=== PATIENT | male | born 1945 | race Caucasian/White ===

== ENCOUNTER 2021-08-26 16:46 | Inpatient (IN) ==
[2021-08-26 17:07] LABS: BASOPHILS # (AUTO) 0.1 X10^3/uL (0.0-0.1); LYMPHOCYTES # (AUTO) 0.5 X10^3/uL (1.3-2.9); RED CELL DISTRIBUTION WIDTH 14.9 % (11.6-16.5)
[2021-08-26 17:10] LABS: BASOPHILS % (AUTO) 0.3 % (0.2-1.0); MEAN CORPUSCULAR HEMOGLOBIN 30.8 pg (27.0-34.0); MEAN CORPUSCULAR HGB CONC 33.3 g/dL (33.0-35.0); MEAN CORPUSCULAR VOLUME 92.4 fL (80.0-100.0); MEAN PLATELET VOLUME 9.1 fL (7.4-11.0); MONOCYTES # (AUTO) 0.8 x10^3/uL (0.3-0.8); MONOCYTES % (AUTO) 4.4 % (0.0-13.0); NEUTROPHILS # (AUTO) 16.7 x10^3/uL (2.2-4.8); NEUTROPHILS % (AUTO) 92.3 % (42.0-75.0); RED BLOOD COUNT 3.25 X10^6/uL (4.7-6.0); WHITE BLOOD COUNT 18.1 X10^3/uL (3.6-10.0)
[2021-08-26] MEDS ORDERED: NS 1,000 ML IV 1,000 ML ONE ×3 (17:18→20:13)
[2021-08-26] MEDS ORDERED: NS 1,000 ML IV 1,000 ML IV ONE ×2 (17:20→18:55)
--- NOTE | 2021-08-26 17:36 | RAD ---
HISTORYWEAKNESS, CP, SOB Relevant Clinical InformationSTUDYCHEST, 1 [id number]/20/2021.FINDINGSThe airways are normal. The heart size is normal. There is increased opacity in the left base and there is a small to moderate left pleural effusion. There is new opacity in the right upper lobe. The right base is clear.IMPRESSIONLeft base and right upper lobe opacities worrisome for pneumonia. Persistent small to moderate left pleural effusion.Electronically signed by: Jonathan Soriano (Aug 26, 2021 17:35:10)
--- NOTE | 2021-08-26 17:36 | DR.CP ---
HPI Time Seen Time Seen by Provider: 08/26/21 17:00 PCP Primary Care Physician: ENZO Carpenter Chief Complaint:: PATIENT COMPLAINS OF MID CHEST PAIN AND WEAKNESS. PAIENT STATES HE HAS FELT THIS WAY FOR A WEEK, SPOUSE STATES HE HAS BEEN WEAK AND NOT E ATING FOR TWO DAYS. PATIENT IS NOTED TO BE PALE, AWAKE AND ALERT BUT WEAK AND UNABLE TO STAND TO GET INTO STRETCHER. PATIENT HAS HX OF OPEN HEART SURGERY OVER 5 YR AGO. Self Treatment fo Chief Complaint: ASPIRIN ON THE WAY ER AND STATES HE WOULD NOT TAKE A NITRO COVID-19 Coronavirus risk:travel/contact w/high risk person: No Has patient experienced Coronavirus symptoms: No Source History Provided: Patient and Significant Other Mode of Arrival Mode of Arrival: Ambulatory Timing Onset of Chief Complaint: 08/24/21 PMH PMH Past Medical History: Yes Past Medical History: Coronary Artery Disease and Hypertension Past Surgical History: Yes Surgical History: Appendectomy and CABG/Valve Surgery Family History History of Family Medical Conditions: Yes Family Medical History: Cancer Social History Do you use any recreational Drugs:: No Lives With: Spouse Lives Where: Home Travel Risk Coronavirus risk:travel/contact w/high risk person: No Has patient experienced Coronavirus symptoms: No Infectious screening In the last 2 months have you had wt loss of >10#?: NO Have you had fever, night sweats or hemotysis?: No Have you traveled outside the country in the last 6 months?: No Isolation: Standard PE Vitals Vitals: Temperature 97 F Pulse Rate 65 Respiratory Rate 28 Blood Pressure [Right Arm] 167/73 Blood Pressure 127/61 O2 Sat by Pulse Oximetry 92 ROR Labs Reviewed Result Diagrams: 08/26/21 16:55 08/26/21 16:55 Laboratory: WBC 18.1 X10^3/uL (3.6-10.0) H 08/26/21 16:55 RBC 3.25 X10^6/uL (4.7-6.0) L 08/26/21 16:55 Hgb 10.0 g/dL (13.5-18.0) L 08/26/21 16:55 Hct 30.0 % (42.0-54.0) L 08/26/21 16:55 MCV 92.4 fL (80.0-100.0) 08/26/21 16:55 MCH 30.8 pg (27.0-34.0) 08/26/21 16:55 MCHC 33.3 g/dL (33.0-35.0) 08/26/21 16:55 RDW 14.9 % (11.6-16.5) 08/26/21 16:55 Plt Count 239 X10^3/uL (150.0-450.0) 08/26/21 16:55 Plt Count Comment Adequate (ADEQUATE) 08/26/21 16:55 MPV 9.1 fL (7.4-11.0) 08/26/21 16:55 Neut % (Auto) 92.3 % (42.0-75.0) H 08/26/21 16:55 Lymph % (Auto) 3.0 % (21.0-51.0) L 08/26/21 16:55 [place] % (Auto) 4.4 % (0.0-13.0) 08/26/21 16:55 Eos % (Auto) 0.0 % (0.9-2.9) L 08/26/21 16:55 Baso % (Auto) 0.3 % (0.2-1.0) 08/26/21 16:55 Neut # (Auto) 16.7 x10^3/uL (2.2-4.8) H 08/26/21 16:55 Lymph # (Auto) 0.5 X10^3/uL (1.3-2.9) L 08/26/21 16:55 [place] # (Auto) 0.8 x10^3/uL (0.3-0.8) 08/26/21 16:55 Eos # (Auto) 0.0 x10^3/uL (0.0-0.2) 08/26/21 16:55 Baso # (Auto) 0.1 X10^3/uL (0.0-0.1) 08/26/21 16:55 Absolute Nucleated RBC 0.0 /100WBC 08/26/21 16:55 Total Counted 100 08/26/21 16:55 Neutrophils % (Manual) 95 % (39-76) H 08/26/21 16:55 Lymphocytes % (Manual) 4 % (13-43) L 08/26/21 16:55 Monocytes % (Manual) 1 % (4-9) L 08/26/21 16:55 Plt Morphology Comment Normal (NORMAL) 08/26/21 16:55 RBC Morphology Normal (NORMAL) 08/26/21 16:55 D-Dimer 3.81 ug/ml (0.0-0.57) H* 08/26/21 16:55 Sodium 131 mmol/L (136-145) L 08/26/21 16:55 Corrected Sodium 133 mmol/L (136-145) L 08/26/21 16:55 Potassium 4.8 mmol/L (3.5-5.1) 08/26/21 16:55 Chloride 93 mmol/L (98-107) L 08/26/21 16:55 Carbon Dioxide 21.8 mmol/L (21-32) 08/26/21 16:55 BUN 92 mg/dL (7-18) H 08/26/21 16:55 Creatinine 4.14 mg/dL (0.70-1.30) H 08/26/21 16:55 Est GFR (MDRD) Af Amer 18 (>60) L 08/26/21 16:55 Est GFR (MDRD) Non-Af 15 (>60) L 08/26/21 16:55 Glucose 200 mg/dL (65-99) H 08/26/21 16:55 Lactic Acid 1.0 mmol/L (0.4-2.0) 08/26/21 19:55 Calcium 8.8 mg/dL (8.5-10.1) 08/26/21 16:55 Corrected Calcium 9.8 mg/dL (8.5-10.1) 08/26/21 16:55 Total Bilirubin 1.00 mg/dL (0.2-1.0) 08/26/21 16:55 AST 15 Units/L (15-37) 08/26/21 16:55 ALT 17 Units/L (12-78) 08/26/21 16:55 Alkaline Phosphatase 107 Units/L (46-116) 08/26/21 16:55 Creatine Kinase 102 Units/L (39-308) 08/26/21 16:55 CK-MB (CK-2) 2.2 ng/mL (0-4.0) 08/26/21 16:55 CK/CKMB % Calc 2.2 % (<4) 08/26/21 16:55 Troponin I High Sens 59.5 ng/L (4.0-60.0) 08/26/21 16:55 Total Protein 7.2 g/dL (6.4-8.2) 08/26/21 16:55 Albumin 2.8 g/dL (3.4-5.0) L 08/26/21 16:55 Globulin 4.4 g/dL (2.5-4.5) 08/26/21 16:55 Albumin/Globulin Ratio 0.6 Ratio (1.1-2.1) L 08/26/21 16:55 SARS-CoV-2 (PCR) Negative (NEGATIVE) 08/26/21 17:20 Influenza Type A (PCR) Negative (NEGATIVE) 08/26/21 17:20 Influenza Type B (PCR) Negative (NEGATIVE) 08/26/21 17:20 RSV (PCR) Negative (NEGATIVE) 08/26/21 17:20 Opioid Opioid Risk Tool Age (Nestor box if 16-45): No History of Preadolescent Sexual Abuse: No Total: 0 Total Score Risk Category: Low Risk Copyright: César BURT predicting aberrant behaviors Discharge Plan Diagnosis Discharge Problem: Pneumonia, Acute renal failure, Acute dehydration, Chest pain Discharge Plan Patient Disposition: 01 HOME, SELF-CARE Condition: Stable Orders to Discharge Patient Discharge Orders: Transfer (Routine); Ordered 08/26/21 Ordered By: MACARENA SIMS
[2021-08-26 17:41] LABS: ALBUMIN 2.8 g/dL (3.4-5.0); CALCIUM 8.8 mg/dL (8.5-10.1); CARBON DIOXIDE 21.8 mmol/L (21-32); CKMB % 2.2 % (<4); COR CA(FOR HYPOALB) 9.8 mg/dL (8.5-10.1); CREATINE KINASE MB 2.2 ng/mL (0-4.0); CREATININE 4.14 mg/dL (0.70-1.30); TOTAL PROTEIN 7.2 g/dL (6.4-8.2)
[2021-08-26 17:45] LABS: PLATELET MORPHOLOGY COMMENT NORMAL (NORMAL)
[2021-08-26] MEDS ORDERED: ZOFRAN INJ 4 MG VIAL IVP ONE (17:53)
[2021-08-26] MEDS ORDERED: ZOFRAN INJ 4 MG VIAL ONE (17:57)
[2021-08-26] MEDS ORDERED: ROCEPHIN 1 GRAM IV PREMIX 1 G/50 ML IV.SOLN. IV ONE (19:40)
[2021-08-26] MEDS ORDERED: ROCEPHIN VIAL 1 GRAM ONE (19:45)
[2021-08-26] MEDS ORDERED: NS 100 ML IV 100 ML ONE ×2 (19:46→22:25)
[2021-08-26] MEDS ORDERED: SALINE 3% 15 ML NEB TX ONE (21:37)
[2021-08-26] MEDS ORDERED: PROVENTIL NEB TX 0.083% 2.5MG/ 3ML ONE (21:37)
[2021-08-26] MEDS: PROVENTIL NEB TX 0.083% 2.5MG/ 3ML NEB SCH (21:45)
[2021-08-26] MEDS ORDERED: SALINE 3% 15 ML NEB TX NEB ONE (21:45)
[2021-08-26] MEDS ORDERED: VIBRAMYCIN 100 MG in NS 100 ML IV + SPIKE MINIBAG* 100 ML IV SCH (22:00)
[2021-08-26] MEDS ORDERED: VIBRAMYCIN IV ONE (22:25)
[2021-08-26] MEDS: NICOTINE PATCH TD SCH (22:27)
[2021-08-26 23:20] LABS: CKMB % 3.3 % (<4); CREATINE KINASE MB 2.5 ng/mL (0-4.0)
[2021-08-27] MEDS: NS 1,000 ML IV 1,000 ML IV SCH ×4 (01:44→17:18)
[2021-08-27 02:15] LABS: BILIRUBIN,URINE NEGATIVE (NEGATIVE); BLOOD/HEMOGLOBIN,URINE NEGATIVE (NEGATIVE); GLUCOSE, URINE NEGATIVE (NEGATIVE); KETONES,URINE NEGATIVE (NEGATIVE); LEUKOCYTE ESTERASE ,URINE NEGATIVE (NEGATIVE); NITRITES,URINE NEGATIVE (NEGATIVE); PROTEIN,URINE NEGATIVE (NEGATIVE); UROBILINOGEN,URINE NORMAL (NORMAL)
[2021-08-27 02:25] LABS: APPEARANCE,URINE CLEAR (CLEAR); COLOR,URINE YELLOW (YELLOW)
[2021-08-27 05:33] LABS: BASOPHILS % (AUTO) 0 % (0.2-1.0); HEMATOCRIT 27.3 % (42.0-54.0); HEMOGLOBIN 9.3 g/dL (13.5-18.0); LYMPHOCYTES # (AUTO) 0.3 X10^3/uL (1.3-2.9); LYMPHOCYTES % (AUTO) 2.1 % (21.0-51.0); MEAN CORPUSCULAR HEMOGLOBIN 31.2 pg (27.0-34.0); MEAN CORPUSCULAR HGB CONC 34.1 g/dL (33.0-35.0); MEAN CORPUSCULAR VOLUME 91.3 fL (80.0-100.0); MEAN PLATELET VOLUME 9.8 fL (7.4-11.0); MONOCYTES # (AUTO) 0.7 x10^3/uL (0.3-0.8); MONOCYTES % (AUTO) 4.6 % (0.0-13.0); NEUTROPHILS # (AUTO) 14.8 x10^3/uL (2.2-4.8); NEUTROPHILS % (AUTO) 93.3 % (42.0-75.0); RED BLOOD COUNT 2.99 X10^6/uL (4.7-6.0); WHITE BLOOD COUNT 15.8 X10^3/uL (3.6-10.0)
[2021-08-27 05:57] LABS: ALBUMIN 2.1 g/dL (3.4-5.0); CALCIUM 7.7 mg/dL (8.5-10.1); CARBON DIOXIDE 19.8 mmol/L (21-32); CKMB % 4.7 % (<4); COR CA(FOR HYPOALB) 9.2 mg/dL (8.5-10.1); CREATINE KINASE MB 2.6 ng/mL (0-4.0); CREATININE 3.59 mg/dL (0.70-1.30); MAGNESIUM 1.6 mg/dL (1.7-2.9); TOTAL PROTEIN 5.7 g/dL (6.4-8.2)
[2021-08-27 06:08] LABS: BAND NEUTROPHILS % 6 % (0-10)
[2021-08-27 06:09] LABS: PLATELET MORPHOLOGY COMMENT NORMAL (NORMAL)
[2021-08-27] MEDS ORDERED: ROCEPHIN VIAL 1 GRAM ONE (07:53)
[2021-08-27] MEDS ORDERED: NS 50 ML IV 50 ML IV ONE (07:53)
[2021-08-27] MEDS ORDERED: VIBRAMYCIN IV ONE (07:53)
[2021-08-27] MEDS ORDERED: NS 250 ML IV 250 ML IV ONE (07:54)
--- NOTE | 2021-08-27 08:16 | DR.H&P ---
H&P History & Physical for Day of: H&P Date: 08/27/21 Chief Complaint Chief Complaint: Chest pain, shortness of breath Allergies Allergies Allergy/AdvReac Type Severity Reaction Status Date / Time No Known Drug Allergies Allergy Verified 09/13/19 13:55 History of Present Illness History of Present Illness: Pt is a 76 year old male past medical history of Hypertension, CABG, COPD, CKD presenting with chest pain, shortness of breath, and chills for the past week. Pt states that his symptoms were progressively worsening and that he became weak. Labs/imaging: Wbc 15.8, Hgb 9.3, Plt 231, Na 134, K 4.2, Creatinine 3.59, Glucose 153, Troponin negative x3. UA negative, COVID and influenza negative, blood cultures pending. CXR was obtained that revealed: Left base and right upper lobe opacities worrisome for pneumonia. Persistent small to moderate left pleural effusion. Pt was admitted for community acquired pneumonia. He was started on IVF NS@150ml/h, will decrease to KVO due to pleural effusion. Current antibiotics: Rocephin and Doxycycline. D- dimer was elevated, unable to get CTA chest due to renal function will order VQ scan. Restart home medications. Add bronchodilators. Continue to closely monitor and follow up labs/imaging. Past Medical History Past Medical History: Coronary Artery Disease and Hypertension Past Surgical History Surgical History: Appendectomy and CABG/Valve Surgery Family History Family Medical History: Cancer Social History Does patient currently use any type of tobacco product: Yes Have you used tobacco products in the last 12 months: Yes Type of Tobacco Use: Cigarettes How many years tobacco product used: 50 Does any household member use tobacco: No Alcohol Use: None Drug Use: None Medications Home Medications: No Known Drug Allergies Allergy (Verified 09/13/19 13:55) CONTINUE taking the following medications albuterol sulfate 2.5 mg/3 mL (0.083 %) solution for nebulization inhalation PRN PRN 08/26/21 [History] clonidine HCl 0.1 mg tablet 1 tab PO QDAY PRN blood pressure 08/26/21 [History] nifedipine 30 mg tablet,extended release 1 tab PO QDAY 08/26/21 [History] Labs Result Diagrams: 08/27/21 04:37 08/27/21 04:37 Labs: Laboratory WBC 15.8 X10^3/uL (3.6-10.0) H 08/27/21 04:37 RBC 2.99 X10^6/uL (4.7-6.0) L 08/27/21 04:37 Hgb 9.3 g/dL (13.5-18.0) L 08/27/21 04:37 Hct 27.3 % (42.0-54.0) L 08/27/21 04:37 MCV 91.3 fL (80.0-100.0) 08/27/21 04:37 MCH 31.2 pg (27.0-34.0) 08/27/21 04:37 MCHC 34.1 g/dL (33.0-35.0) 08/27/21 04:37 RDW 15.0 % (11.6-16.5) 08/27/21 04:37 Plt Count 231 X10^3/uL (150.0-450.0) 08/27/21 04:37 Plt Count Comment Adequate (ADEQUATE) 08/27/21 04:37 MPV 9.8 fL (7.4-11.0) 08/27/21 04:37 Neut % (Auto) 93.3 % (42.0-75.0) H 08/27/21 04:37 Lymph % (Auto) 2.1 % (21.0-51.0) L 08/27/21 04:37 [place] % (Auto) 4.6 % (0.0-13.0) 08/27/21 04:37 Eos % (Auto) 0.0 % (0.9-2.9) L 08/27/21 04:37 Baso % (Auto) 0 % (0.2-1.0) L 08/27/21 04:37 Neut # (Auto) 14.8 x10^3/uL (2.2-4.8) H 08/27/21 04:37 Lymph # (Auto) 0.3 X10^3/uL (1.3-2.9) L 08/27/21 04:37 [place] # (Auto) 0.7 x10^3/uL (0.3-0.8) 08/27/21 04:37 Eos # (Auto) 0.0 x10^3/uL (0.0-0.2) 08/27/21 04:37 Baso # (Auto) 0.0 X10^3/uL (0.0-0.1) 08/27/21 04:37 Absolute Nucleated RBC 0.0 /100WBC 08/27/21 04:37 Total Counted 100 08/27/21 04:37 Neutrophils % (Manual) 89 % (39-76) H 08/27/21 04:37 Band Neutrophils % 6 % (0-10) 08/27/21 04:37 Lymphocytes % (Manual) 2 % (13-43) L 08/27/21 04:37 Monocytes % (Manual) 3 % (4-9) L 08/27/21 04:37 Plt Morphology Comment Normal (NORMAL) 08/27/21 04:37 RBC Morphology Normal (NORMAL) 08/27/21 04:37 PT 14.8 SECONDS (11.8-14.3) 08/27/21 04:37 INR Target Range - 08/27/21 04:37 INR 1.20 (0.8-1.3) 08/27/21 04:37 APTT 32.7 SECONDS (22.9-36.5) 08/27/21 04:37 PTT Comment - 08/27/21 04:37 D-Dimer 3.81 ug/ml (0.0-0.57) H* 08/26/21 16:55 Sodium 134 mmol/L (136-145) L 08/27/21 04:37 Corrected Sodium 135 mmol/L (136-145) L 08/27/21 04:37 Potassium 4.2 mmol/L (3.5-5.1) 08/27/21 04:37 Chloride 101 mmol/L (98-107) 08/27/21 04:37 Carbon Dioxide 19.8 mmol/L (21-32) L 08/27/21 04:37 BUN 88 mg/dL (7-18) H 08/27/21 04:37 Creatinine 3.59 mg/dL (0.70-1.30) H 08/27/21 04:37 Est GFR (MDRD) Af Amer 21 (>60) L 08/27/21 04:37 Est GFR (MDRD) Non-Af 18 (>60) L 08/27/21 04:37 Glucose 153 mg/dL (65-99) H 08/27/21 04:37 Lactic Acid 1.0 mmol/L (0.4-2.0) 08/26/21 19:55 Calcium 7.7 mg/dL (8.5-10.1) L 08/27/21 04:37 Corrected Calcium 9.2 mg/dL (8.5-10.1) 08/27/21 04:37 Magnesium 1.6 mg/dL (1.7-2.9) L 08/27/21 04:37 Total Bilirubin 0.50 mg/dL (0.2-1.0) 08/27/21 04:37 AST 11 Units/L (15-37) L 08/27/21 04:37 ALT 13 Units/L (12-78) 08/27/21 04:37 Alkaline Phosphatase 86 Units/L (46-116) 08/27/21 04:37 Creatine Kinase 55 Units/L (39-308) 08/27/21 04:37 CK-MB (CK-2) 2.6 ng/mL (0-4.0) 08/27/21 04:37 CK/CKMB % Calc 4.7 % (<4) 08/27/21 04:37 Troponin I High Sens 49.1 ng/L (4.0-60.0) 08/27/21 04:37 Total Protein 5.7 g/dL (6.4-8.2) L 08/27/21 04:37 Albumin 2.1 g/dL (3.4-5.0) L 08/27/21 04:37 Globulin 3.6 g/dL (2.5-4.5) 08/27/21 04:37 Albumin/Globulin Ratio 0.6 Ratio (1.1-2.1) L 08/27/21 04:37 Specimen Type Clean catch urine 08/27/21 01:30 Urine Color Yellow (YELLOW) 08/27/21 01:30 Urine Appearance Clear (CLEAR) 08/27/21 01:30 Urine pH 5.0 (5.0 - 8.0) 08/27/21 01:30 Ur Specific [place] 1.015 (1.000-1.030) 08/27/21 01:30 Urine Protein Negative (NEGATIVE) 08/27/21 01:30 Urine Glucose (UA) Negative (NEGATIVE) 08/27/21 01:30 Urine Ketones Negative (NEGATIVE) 08/27/21 01:30 Urine Blood Negative (NEGATIVE) 08/27/21 01:30 Urine Nitrite Negative (NEGATIVE) 08/27/21 01:30 Urine Bilirubin Negative (NEGATIVE) 08/27/21 01:30 Urine Urobilinogen Normal (NORMAL) 08/27/21 01:30 Ur Leukocyte Esterase Negative (NEGATIVE) 08/27/21 01:30 SARS-CoV-2 (PCR) Negative (NEGATIVE) 08/26/21 17:20 Influenza Type A (PCR) Negative (NEGATIVE) 08/26/21 17:20 Influenza Type B (PCR) Negative (NEGATIVE) 08/26/21 17:20 RSV (PCR) Negative (NEGATIVE) 08/26/21 17:20 Review of Systems Constitutional: Chills and Weakness Eyes: No Symptoms Reported ENT: No Symptoms Reported Respiratory: Shortness of Breath Cardiovascular: Chest Pain Gastrointestinal: No Symptoms Reported Genitourinary: No Symptoms Reported Musculoskeletal: No Symptoms Reported Skin: No Symptoms Reported Neurological: No Symptoms Reported Physical Exam Vital Signs: Temperature 97.7 F Pulse Rate [Left Radial] 67 Pulse Rate 66 Respiratory Rate 33 Blood Pressure [Right Arm] 126/60 Blood Pressure 113/59 O2 Sat by Pulse Oximetry 100 Oriented: Normal Eyes: Normal Ear: Normal Nose: Normal Throat: Normal Respiratory: Diminished Throughout, RUL Rales and LLL Rales Cardiovascular: Normal : Normal Auscultation: Bowel Sounds: Normal Palpation: Normal Tenderness: Normal Skin: Normal Musculoskeletal: Normal Psychiatric: Normal Mood Description: Calm and Appropriate Affect: Normal Speech Pattern: Clear and Appropriate Assessment/Plan (1) Pneumonia: Narrative Support Text: IV antibiotics Status: Acute (2) Chest pain, rule out acute myocardial infarction: Status: Acute (3) CKD (chronic kidney disease) stage 4, GFR 15-29 ml/min: Status: Acute Review H&P Reviewed: Yes Patient was examined?: Yes
[2021-08-27] MEDS: NICOTINE PATCH TD SCH (08:24)
[2021-08-27] MEDS: VIBRAMYCIN 100 MG in NS 100 ML IV 100 ML IV SCH ×2 (08:25→20:42)
[2021-08-27] MEDS: ROCEPHIN VIAL 1 GRAM 1 G in NS 100 ML IV 100 ML IV SCH (08:25)
[2021-08-27] MEDS: COREG TAB 3.125 MG PO SCH ×2 (08:29→20:42)
[2021-08-27] MEDS: PROVENTIL NEB TX 0.083% 2.5MG/ 3ML NEB SCH ×4 (08:33→21:05)
[2021-08-27] MEDS ORDERED: ROCEPHIN 1 GRAM IV PREMIX 1 G/50 ML IV.SOLN. IV SCH (09:00)
[2021-08-27] MEDS ORDERED: ZOFRAN INJ 4 MG VIAL IVP PRN (09:25)
[2021-08-27] MEDS ORDERED: ZOFRAN INJ 4 MG VIAL ONE (09:27)
[2021-08-27] MEDS ORDERED: MORPHINE SULFATE INJ 2 MG INJ ONE (09:48)
[2021-08-27] MEDS: MORPHINE SULFATE INJ 2 MG INJ IVP PRN ×2 (09:51→20:42)
[2021-08-27 10:53] LABS: CKMB % 5.2 % (<4); CREATINE KINASE MB 3.7 ng/mL (0-4.0)
[2021-08-27] MEDS: LOVENOX INJ 30 MG SYR SC SCH (11:11)
[2021-08-28] MEDS: NS 1,000 ML IV 1,000 ML IV SCH ×4 (02:16→20:05)
[2021-08-28] MEDS ORDERED: CATAPRES TAB 0.1 MG PO PRN ×2 (04:08→04:43)
[2021-08-28 04:57] LABS: BASOPHILS % (AUTO) 0.3 % (0.2-1.0); HEMATOCRIT 28.1 % (42.0-54.0); HEMOGLOBIN 9.5 g/dL (13.5-18.0); LYMPHOCYTES # (AUTO) 0.5 X10^3/uL (1.3-2.9); LYMPHOCYTES % (AUTO) 3.4 % (21.0-51.0); MEAN CORPUSCULAR HGB CONC 33.7 g/dL (33.0-35.0); MEAN PLATELET VOLUME 9.6 fL (7.4-11.0); MONOCYTES % (AUTO) 6.5 % (0.0-13.0); NEUTROPHILS # (AUTO) 13.1 x10^3/uL (2.2-4.8); NEUTROPHILS % (AUTO) 89.8 % (42.0-75.0); RED BLOOD COUNT 3.06 X10^6/uL (4.7-6.0); RED CELL DISTRIBUTION WIDTH 15.2 % (11.6-16.5); WHITE BLOOD COUNT 14.5 X10^3/uL (3.6-10.0)
[2021-08-28 05:15] LABS: ALANINE AMINOTRANSFERASE 16 Units/L (12-78); ALKALINE PHOSPHATASE 102 Units/L (46-116); ASPARTATE AMINO TRANSFERASE 15 Units/L (15-37); BLOOD UREA NITROGEN 89 mg/dL (7-18); CARBON DIOXIDE 19.6 mmol/L (21-32); CHLORIDE 103 mmol/L (98-107); COR CA(FOR HYPOALB) 9.6 mg/dL (8.5-10.1); CREATININE 3.32 mg/dL (0.70-1.30); SODIUM 137 mmol/L (136-145); TOTAL PROTEIN 5.7 g/dL (6.4-8.2); eGFR NON BLACK RACES 19 (>60)
--- NOTE | 2021-08-28 06:43 | RAD ---
HISTORYFollow-up pneumoniaSTUDYChest AP [id number] ent is status post median sternotomy and CABG. Heart size is normal. Elizabeth are normal. Small right upper lobe infiltrate abuts the minor fissure and is unchanged and most consistent with pneumonia. The remainder of the right lung is clear as is the left upper lobe. Increasing density is present in the retrocardiac area of the left lower lobe partially due to increasing left pleural effusion. The effusion obscures the previously known underlying left lower lobe infiltrate. No pneumothorax is identified. Bony thorax is unremarkable.IMPRESSIONNo change right midlung pneumoniaIncreasing left pleural effusion obscuring the patient's known left lower lobe lung infiltrate.Electronically signed by: KHAI STEPHENSON (Aug 28, 2021 06:41:40)
--- NOTE | 2021-08-28 08:19 | NM ---
HISTORYChest pain, dyspnea, elevated D-dimerSTUDYNuclear medicine perfusion lung scanTechnique: Patient received intravenous injection of 5.7 millicuries technetium 99 MAA.COMPARISONChest x-ray same dateFINDINGSThere is an apparent perfusion defect involving the left lower lobe however it is likely due to the patient's elevated left hemidiaphragm and left pleural effusion. Otherwise, perfusion is symmetric and without subsegmental, segmental, or lobar defects. The probability of acute pulmonary thromboembolic disease is low.IMPRESSIONLow probability acute pulmonary thromboembolic diseaseElectronically signed by: KHAI STEPHENSON (Aug 28, 2021 08:17:32)
[2021-08-28] MEDS: COREG TAB 3.125 MG PO SCH (09:10)
[2021-08-28] MEDS: LASIX PO SCH (09:11)
[2021-08-28] MEDS: NICOTINE PATCH TD SCH (09:11)
[2021-08-28] MEDS: ROCEPHIN VIAL 1 GRAM 1 G in NS 100 ML IV 100 ML IV SCH (09:11)
[2021-08-28] MEDS: LOVENOX INJ 30 MG SYR SC SCH (09:11)
[2021-08-28] MEDS: VIBRAMYCIN 100 MG in NS 100 ML IV 100 ML IV SCH ×2 (09:12→20:35)
[2021-08-28] MEDS: PROVENTIL NEB TX 0.083% 2.5MG/ 3ML NEB SCH ×4 (09:20→21:13)
[2021-08-28] MEDS ORDERED: PROCARDIA (PLAIN) CAP 10 MG PO ONE (12:17)
[2021-08-28 18:29] VITALS: BMI 16.4
[2021-08-28] MEDS: COREG TAB 12.5 MG PO SCH (20:35)
[2021-08-29 05:26] LABS: BASOPHILS % (AUTO) 0.1 % (0.2-1.0); HEMATOCRIT 27.6 % (42.0-54.0); HEMOGLOBIN 9.3 g/dL (13.5-18.0); LYMPHOCYTES # (AUTO) 0.6 X10^3/uL (1.3-2.9); LYMPHOCYTES % (AUTO) 4.6 % (21.0-51.0); MEAN CORPUSCULAR HEMOGLOBIN 31.1 pg (27.0-34.0); MEAN CORPUSCULAR HGB CONC 33.7 g/dL (33.0-35.0); MEAN CORPUSCULAR VOLUME 92.1 fL (80.0-100.0); MEAN PLATELET VOLUME 9.3 fL (7.4-11.0); MONOCYTES # (AUTO) 0.8 x10^3/uL (0.3-0.8); MONOCYTES % (AUTO) 6.8 % (0.0-13.0); NEUTROPHILS # (AUTO) 11.1 x10^3/uL (2.2-4.8); NEUTROPHILS % (AUTO) 88.5 % (42.0-75.0); RED CELL DISTRIBUTION WIDTH 15.7 % (11.6-16.5); WHITE BLOOD COUNT 12.5 X10^3/uL (3.6-10.0)
[2021-08-29 05:35] LABS: ALANINE AMINOTRANSFERASE 27 Units/L (12-78); ALBUMIN 1.9 g/dL (3.4-5.0); ALKALINE PHOSPHATASE 135 Units/L (46-116); ASPARTATE AMINO TRANSFERASE 30 Units/L (15-37); BLOOD UREA NITROGEN 81 mg/dL (7-18); CALCIUM 8.2 mg/dL (8.5-10.1); CARBON DIOXIDE 22.4 mmol/L (21-32); CHLORIDE 103 mmol/L (98-107); COR CA(FOR HYPOALB) 9.9 mg/dL (8.5-10.1); CREATININE 2.84 mg/dL (0.70-1.30); SODIUM 137 mmol/L (136-145); TOTAL PROTEIN 5.8 g/dL (6.4-8.2); eGFR NON BLACK RACES 23 (>60)
[2021-08-29] MEDS: NS 1,000 ML IV 1,000 ML IV SCH ×3 (05:37→17:38)
--- NOTE | 2021-08-29 07:42 | PCM.PROG ---
Progress Note Progress Note for Day of Date of Exam: 08/28/21 Subjective Subjective: Pt is a 76 year old male past medical history of Hypertension, CABG, COPD, CKD admitted for pneumonia. This morning he reports feeling better than yesterday. No acute events overnight. Labs/imaging: Wbc 14.5, Hgb 9.5, Plt 241, Na 137, K 3.9, Creatinine 3.32, Glucose 110, Blood cultures pending. CXR was obtained that revealed: No change right midlung pneumonia. Increasing left pleural effusion obscuring the patient's known left lower lobe lung infiltrate. He did have VQ scan due to elevated D-dimer that resulted in low probability acute pulmonary thromboembolic disease. Pt is currently on IVF NS@KVO, Current antibiotics: Rocephin and Doxycycline, bronchodilators, home medications were resumed. Start on home lasix 40mg daily due to pleural effusion. Otherwise, continue with current treatment plan. Closely monitor and follow up labs/imaging. Past Medical Family Social History Allergies: Allergies No Known Drug Allergies Allergy (Verified 09/13/19 13:55) Review of Systems ROS: No change since H&P Vital Signs and I&O's Vital Signs: Temperature 98.7 F Pulse Rate [Left Radial] 67 Pulse Rate 61 Respiratory Rate 22 Blood Pressure [Right Arm] 126/60 Blood Pressure 167/71 O2 Sat by Pulse Oximetry 100 Intake and Output: Intake & Output 08/26/21 08/27/21 08/28/21 08/29/21 23:59 23:59 23:59 23:59 Intake Total 2230 / 2230 3120 / 3120 2018 / 2018 375 / 375 Output Total 0 / 0 1925 / 1925 1999 / 1999 450 / 450 Balance 2230 / 2230 1195 / 1195 19 / 19 -75 / -75 Physical Exam Oriented: Normal Eyes: Normal Ear: Normal Nose: Normal Throat: Normal Respiratory: Rales Cardiovascular: Normal : Normal Auscultation: Bowel Sounds: Normal Tenderness: Normal Skin: Normal Musculoskeletal: Normal Psychiatric: Normal Mood Description: Calm and Appropriate Affect: Normal Speech Pattern: Clear and Appropriate Laboratory and Diagnostics Result Diagrams: 08/29/21 04:46 08/29/21 04:46 Labs: 08/27/21 08:43 Sputum - Expectorated Sputum Sputum Culture - Preliminary 08/27/21 08:43 Sputum - Expectorated Sputum - Final 08/26/21 20:18 Blood Blood Culture - Preliminary 08/26/21 19:55 Blood Blood Culture - Preliminary Laboratory WBC 12.5 X10^3/uL (3.6-10.0) H 08/29/21 04:46 RBC 3.00 X10^6/uL (4.7-6.0) L 08/29/21 04:46 Hgb 9.3 g/dL (13.5-18.0) L 08/29/21 04:46 Hct 27.6 % (42.0-54.0) L 08/29/21 04:46 MCV 92.1 fL (80.0-100.0) 08/29/21 04:46 MCH 31.1 pg (27.0-34.0) 08/29/21 04:46 MCHC 33.7 g/dL (33.0-35.0) 08/29/21 04:46 RDW 15.7 % (11.6-16.5) 08/29/21 04:46 Plt Count 247 X10^3/uL (150.0-450.0) 08/29/21 04:46 Plt Count Comment Adequate (ADEQUATE) 08/27/21 04:37 MPV 9.3 fL (7.4-11.0) 08/29/21 04:46 Neut % (Auto) 88.5 % (42.0-75.0) H 08/29/21 04:46 Lymph % (Auto) 4.6 % (21.0-51.0) L 08/29/21 04:46 [place] % (Auto) 6.8 % (0.0-13.0) 08/29/21 04:46 Eos % (Auto) 0.0 % (0.9-2.9) L 08/29/21 04:46 Baso % (Auto) 0.1 % (0.2-1.0) L 08/29/21 04:46 Neut # (Auto) 11.1 x10^3/uL (2.2-4.8) H 08/29/21 04:46 Lymph # (Auto) 0.6 X10^3/uL (1.3-2.9) L 08/29/21 04:46 [place] # (Auto) 0.8 x10^3/uL (0.3-0.8) 08/29/21 04:46 Eos # (Auto) 0.0 x10^3/uL (0.0-0.2) 08/29/21 04:46 Baso # (Auto) 0.0 X10^3/uL (0.0-0.1) 08/29/21 04:46 Absolute Nucleated RBC 0.0 /100WBC 08/29/21 04:46 Total Counted 100 08/27/21 04:37 Neutrophils % (Manual) 89 % (39-76) H 08/27/21 04:37 Band Neutrophils % 6 % (0-10) 08/27/21 04:37 Lymphocytes % (Manual) 2 % (13-43) L 08/27/21 04:37 Monocytes % (Manual) 3 % (4-9) L 08/27/21 04:37 Plt Morphology Comment Normal (NORMAL) 08/27/21 04:37 RBC Morphology Normal (NORMAL) 08/27/21 04:37 PT 14.8 SECONDS (11.8-14.3) 08/27/21 04:37 INR Target Range - 08/27/21 04:37 INR 1.20 (0.8-1.3) 08/27/21 04:37 APTT 32.7 SECONDS (22.9-36.5) 08/27/21 04:37 PTT Comment - 08/27/21 04:37 D-Dimer 3.81 ug/ml (0.0-0.57) H* 08/26/21 16:55 Sodium 137 mmol/L (136-145) 08/29/21 04:46 Corrected Sodium TNP 08/29/21 04:46 Potassium 3.8 mmol/L (3.5-5.1) 08/29/21 04:46 Chloride 103 mmol/L (98-107) 08/29/21 04:46 Carbon Dioxide 22.4 mmol/L (21-32) 08/29/21 04:46 BUN 81 mg/dL (7-18) H 08/29/21 04:46 Creatinine 2.84 mg/dL (0.70-1.30) H 08/29/21 04:46 Est GFR (MDRD) Af Amer 28 (>60) L 08/29/21 04:46 Est GFR (MDRD) Non-Af 23 (>60) L 08/29/21 04:46 Glucose 99 mg/dL (65-99) 08/29/21 04:46 Lactic Acid 1.0 mmol/L (0.4-2.0) 08/26/21 19:55 Calcium 8.2 mg/dL (8.5-10.1) L 08/29/21 04:46 Corrected Calcium 9.9 mg/dL (8.5-10.1) 08/29/21 04:46 Magnesium 1.6 mg/dL (1.7-2.9) L 08/27/21 04:37 Total Bilirubin 0.40 mg/dL (0.2-1.0) 08/29/21 04:46 AST 30 Units/L (15-37) 08/29/21 04:46 ALT 27 Units/L (12-78) 08/29/21 04:46 Alkaline Phosphatase 135 Units/L (46-116) H 08/29/21 04:46 Creatine Kinase 71 Units/L (39-308) 08/27/21 10:12 CK-MB (CK-2) 3.7 ng/mL (0-4.0) 08/27/21 10:12 CK/CKMB % Calc 5.2 % (<4) 08/27/21 10:12 Troponin I High Sens 54.0 ng/L (4.0-60.0) 08/27/21 10:12 Total Protein 5.8 g/dL (6.4-8.2) L 08/29/21 04:46 Albumin 1.9 g/dL (3.4-5.0) L 08/29/21 04:46 Globulin 3.9 g/dL (2.5-4.5) 08/29/21 04:46 Albumin/Globulin Ratio 0.5 Ratio (1.1-2.1) L 08/29/21 04:46 Specimen Type Clean catch urine 08/27/21 01:30 Urine Color Yellow (YELLOW) 08/27/21 01:30 Urine Appearance Clear (CLEAR) 08/27/21 01:30 Urine pH 5.0 (5.0 - 8.0) 08/27/21 01:30 Ur Specific [place] 1.015 (1.000-1.030) 08/27/21 01:30 Urine Protein Negative (NEGATIVE) 08/27/21 01:30 Urine Glucose (UA) Negative (NEGATIVE) 08/27/21 01:30 Urine Ketones Negative (NEGATIVE) 08/27/21 01:30 Urine Blood Negative (NEGATIVE) 08/27/21 01:30 Urine Nitrite Negative (NEGATIVE) 08/27/21 01:30 Urine Bilirubin Negative (NEGATIVE) 08/27/21 01:30 Urine Urobilinogen Normal (NORMAL) 08/27/21 01:30 Ur Leukocyte Esterase Negative (NEGATIVE) 08/27/21 01:30 SARS-CoV-2 (PCR) Negative (NEGATIVE) 08/26/21 17:20 Influenza Type A (PCR) Negative (NEGATIVE) 08/26/21 17:20 Influenza Type B (PCR) Negative (NEGATIVE) 08/26/21 17:20 RSV (PCR) Negative (NEGATIVE) 08/26/21 17:20 Plan (1) Pneumonia: Status: Acute (2) Chest pain, rule out acute myocardial infarction: Status: Acute (3) CKD (chronic kidney disease) stage 4, GFR 15-29 ml/min: Status: Acute
--- NOTE | 2021-08-29 07:51 | PCM.PROG ---
Progress Note Progress Note for Day of Date of Exam: 08/29/21 Subjective Subjective: Pt is a 76 year old male past medical history of Hypertension, CABG, COPD, CKD admitted for pneumonia. This morning he is resting comfortably in bed. No acute events overnight. Labs/imaging: Wbc 12.5, Hgb 9.3, Plt 247, Na 137, K 3.8, Creatinine 2.84, Glucose 99, Blood cultures gram positive cocci x2. CXR was obtained that revealed: no significant change compared to prior. Pt is currently on IVF NS@KVO, Current antibiotics: Rocephin and Doxycycline, bronchodilators, home medications were resumed. Leukocytosis is trending down. Will repeat blood cultures while awaiting final species of initial cultures. Order echo to rule out endocarditis. Pt also is a smoker and reviewing CT chest in 2020 it noted chronic pleural effusion. Will repeat CT chest and consult general surgery-Dr Lowery for evaluation. Otherwise, continue with current treatment plan. Closely monitor and follow up labs/imaging. Past Medical Family Social History Allergies: Allergies No Known Drug Allergies Allergy (Verified 09/13/19 13:55) Review of Systems ROS: No change since H&P Vital Signs and I&O's Vital Signs: Temperature 98.7 F Pulse Rate [Left Radial] 67 Pulse Rate 61 Respiratory Rate 22 Blood Pressure [Right Arm] 126/60 Blood Pressure 167/71 O2 Sat by Pulse Oximetry 100 Intake and Output: Intake & Output 08/26/21 08/27/21 08/28/21 08/29/21 23:59 23:59 23:59 23:59 Intake Total 2230 / 2230 3120 / 3120 2018 375 / 375 Output Total 0 / 0 1925 / 1925 1999 / 1999 450 / 450 Balance 2230 / 2230 1195 / 1195 -75 / -75 Physical Exam Oriented: Normal Eyes: Normal Ear: Normal Nose: Normal Throat: Normal Respiratory: Rales Cardiovascular: Normal : Normal Auscultation: Bowel Sounds: Normal Tenderness: Normal Skin: Normal Musculoskeletal: Normal Psychiatric: Normal Mood Description: Calm and Appropriate Affect: Normal Speech Pattern: Clear and Appropriate Laboratory and Diagnostics Result Diagrams: 08/30/21 04:19 08/30/21 04:19 Labs: 08/27/21 08:43 Sputum - Expectorated Sputum Sputum Culture - Preliminary 08/27/21 08:43 Sputum - Expectorated Sputum - Final 08/26/21 20:18 Blood Blood Culture - Preliminary 08/26/21 19:55 Blood Blood Culture - Preliminary Laboratory WBC 12.5 X10^3/uL (3.6-10.0) H 08/29/21 04:46 RBC 3.00 X10^6/uL (4.7-6.0) L 08/29/21 04:46 Hgb 9.3 g/dL (13.5-18.0) L 08/29/21 04:46 Hct 27.6 % (42.0-54.0) L 08/29/21 04:46 MCV 92.1 fL (80.0-100.0) 08/29/21 04:46 MCH 31.1 pg (27.0-34.0) 08/29/21 04:46 MCHC 33.7 g/dL (33.0-35.0) 08/29/21 04:46 RDW 15.7 % (11.6-16.5) 08/29/21 04:46 Plt Count 247 X10^3/uL (150.0-450.0) 08/29/21 04:46 Plt Count Comment Adequate (ADEQUATE) 08/27/21 04:37 MPV 9.3 fL (7.4-11.0) 08/29/21 04:46 Neut % (Auto) 88.5 % (42.0-75.0) H 08/29/21 04:46 Lymph % (Auto) 4.6 % (21.0-51.0) L 08/29/21 04:46 [place] % (Auto) 6.8 % (0.0-13.0) 08/29/21 04:46 Eos % (Auto) 0.0 % (0.9-2.9) L 08/29/21 04:46 Baso % (Auto) 0.1 % (0.2-1.0) L 08/29/21 04:46 Neut # (Auto) 11.1 x10^3/uL (2.2-4.8) H 08/29/21 04:46 Lymph # (Auto) 0.6 X10^3/uL (1.3-2.9) L 08/29/21 04:46 [place] # (Auto) 0.8 x10^3/uL (0.3-0.8) 08/29/21 04:46 Eos # (Auto) 0.0 x10^3/uL (0.0-0.2) 08/29/21 04:46 Baso # (Auto) 0.0 X10^3/uL (0.0-0.1) 08/29/21 04:46 Absolute Nucleated RBC 0.0 /100WBC 08/29/21 04:46 Total Counted 100 08/27/21 04:37 Neutrophils % (Manual) 89 % (39-76) H 08/27/21 04:37 Band Neutrophils % 6 % (0-10) 08/27/21 04:37 Lymphocytes % (Manual) 2 % (13-43) L 08/27/21 04:37 Monocytes % (Manual) 3 % (4-9) L 08/27/21 04:37 Plt Morphology Comment Normal (NORMAL) 08/27/21 04:37 RBC Morphology Normal (NORMAL) 08/27/21 04:37 PT 14.8 SECONDS (11.8-14.3) 08/27/21 04:37 INR Target Range - 08/27/21 04:37 INR 1.20 (0.8-1.3) 08/27/21 04:37 APTT 32.7 SECONDS (22.9-36.5) 08/27/21 04:37 PTT Comment - 08/27/21 04:37 D-Dimer 3.81 ug/ml (0.0-0.57) H* 08/26/21 16:55 Sodium 137 mmol/L (136-145) 08/29/21 04:46 Corrected Sodium TNP 08/29/21 04:46 Potassium 3.8 mmol/L (3.5-5.1) 08/29/21 04:46 Chloride 103 mmol/L (98-107) 08/29/21 04:46 Carbon Dioxide 22.4 mmol/L (21-32) 08/29/21 04:46 BUN 81 mg/dL (7-18) H 08/29/21 04:46 Creatinine 2.84 mg/dL (0.70-1.30) H 08/29/21 04:46 Est GFR (MDRD) Af Amer 28 (>60) L 08/29/21 04:46 Est GFR (MDRD) Non-Af 23 (>60) L 08/29/21 04:46 Glucose 99 mg/dL (65-99) 08/29/21 04:46 Lactic Acid 1.0 mmol/L (0.4-2.0) 08/26/21 19:55 Calcium 8.2 mg/dL (8.5-10.1) L 08/29/21 04:46 Corrected Calcium 9.9 mg/dL (8.5-10.1) 08/29/21 04:46 Magnesium 1.6 mg/dL (1.7-2.9) L 08/27/21 04:37 Total Bilirubin 0.40 mg/dL (0.2-1.0) 08/29/21 04:46 AST 30 Units/L (15-37) 08/29/21 04:46 ALT 27 Units/L (12-78) 08/29/21 04:46 Alkaline Phosphatase 135 Units/L (46-116) H 08/29/21 04:46 Creatine Kinase 71 Units/L (39-308) 08/27/21 10:12 CK-MB (CK-2) 3.7 ng/mL (0-4.0) 08/27/21 10:12 CK/CKMB % Calc 5.2 % (<4) 08/27/21 10:12 Troponin I High Sens 54.0 ng/L (4.0-60.0) 08/27/21 10:12 Total Protein 5.8 g/dL (6.4-8.2) L 08/29/21 04:46 Albumin 1.9 g/dL (3.4-5.0) L 08/29/21 04:46 Globulin 3.9 g/dL (2.5-4.5) 08/29/21 04:46 Albumin/Globulin Ratio 0.5 Ratio (1.1-2.1) L 08/29/21 04:46 Specimen Type Clean catch urine 08/27/21 01:30 Urine Color Yellow (YELLOW) 08/27/21 01:30 Urine Appearance Clear (CLEAR) 08/27/21 01:30 Urine pH 5.0 (5.0 - 8.0) 08/27/21 01:30 Ur Specific [place] 1.015 (1.000-1.030) 08/27/21 01:30 Urine Protein Negative (NEGATIVE) 08/27/21 01:30 Urine Glucose (UA) Negative (NEGATIVE) 08/27/21 01:30 Urine Ketones Negative (NEGATIVE) 08/27/21 01:30 Urine Blood Negative (NEGATIVE) 08/27/21 01:30 Urine Nitrite Negative (NEGATIVE) 08/27/21 01:30 Urine Bilirubin Negative (NEGATIVE) 08/27/21 01:30 Urine Urobilinogen Normal (NORMAL) 08/27/21 01:30 Ur Leukocyte Esterase Negative (NEGATIVE) 08/27/21 01:30 SARS-CoV-2 (PCR) Negative (NEGATIVE) 08/26/21 17:20 Influenza Type A (PCR) Negative (NEGATIVE) 08/26/21 17:20 Influenza Type B (PCR) Negative (NEGATIVE) 08/26/21 17:20 RSV (PCR) Negative (NEGATIVE) 08/26/21 17:20 Plan (1) Pneumonia: Status: Acute (2) Chest pain, rule out acute myocardial infarction: Status: Acute (3) CKD (chronic kidney disease) stage 4, GFR 15-29 ml/min: Status: Acute
--- NOTE | 2021-08-29 07:59 | RAD ---
HISTORYPneumonia.STUDYCHEST, 1 [id number]/06/2022.TECHNIQUEAP view of the chestFINDINGSStatus post median sternotomy and CABG. There is silhouetting the left heart border. Mediastinal contours appear normal. Lungs are hyperexpanded. Similar appearing airspace opacity at the superior margin of the right minor fissure. Similar appearing moderate left pleural effusion with left mid to lower lung opacity. No pneumothorax.IMPRESSIONNo significant change compared to prior radiograph.Electronically signed by: Luis Bowen (Aug 29, 2021 07:57:25)
[2021-08-29] MEDS: PROVENTIL NEB TX 0.083% 2.5MG/ 3ML NEB SCH ×4 (08:20→20:54)
[2021-08-29] MEDS: CATAPRES TAB 0.1 MG PO SCH ×2 (09:25→20:37)
[2021-08-29] MEDS: COREG TAB 12.5 MG PO SCH ×2 (09:25→20:37)
[2021-08-29] MEDS: LASIX PO SCH (09:26)
[2021-08-29] MEDS: LOVENOX INJ 30 MG SYR SC SCH (09:26)
[2021-08-29] MEDS: NICOTINE PATCH TD SCH (09:26)
[2021-08-29] MEDS: ROCEPHIN VIAL 1 GRAM 1 G in NS 100 ML IV 100 ML IV SCH (09:27)
[2021-08-29] MEDS: PROCARDIA XL PO SCH (09:27)
[2021-08-29] MEDS: VIBRAMYCIN 100 MG in NS 100 ML IV 100 ML IV SCH ×2 (09:27→20:36)
--- NOTE | 2021-08-29 13:23 | CT ---
CHEST W/O CONCLINICAL INDICATION: PLEURAL EFFUSION, PNEUMONIAPROCEDURE: Noncontrast CT images were obtained through the chest. Dose reduction techniques including Automated Exposure Control (AEC) and adjustment of mA and kV were utlized.COMPARISON: [May 23, 2020]FINDINGS:The sensitivity for focal lesion detection within the mediastinum is diminished without the use of IV contrast.The heart is normal in size . No pericardial effusion. Severe coronary calcification. No suspicious mediastinal or axillary lymph nodes. Right middle lobe opacity is present. Near complete atelectasis of the left lower lobe which has progressed when compared to prior. There is a chronic left pleural effusion with thickening of the left-sided pleura. Rounded atelectasis of the lingula is present. Small right pleural effusion with adjacent atelectasis..Airways are patent . No suspicious pulmonary nodules or masses .Limited images of the upper abdomen are unremarkable.No aggressive osseous lesions.IMPRESSION:1. Further atelectasis of the left lower lobe when compared to prior. There is a moderate-sized chronic left effusion as well as rounded atelectasis of the left lung.2. Acute appearing airspace disease of the right middle lobe suggestive of pneumonia.3. Small right pleural effusion.Electronically signed by: AIDA COHEN (Aug 29, 2021 13:20:59)
[2021-08-30 06:00] LABS: BASOPHILS % (AUTO) 0.1 % (0.2-1.0); EOSINOPHILS % (AUTO) 0.1 % (0.9-2.9); HEMATOCRIT 25.3 % (42.0-54.0); HEMOGLOBIN 8.5 g/dL (13.5-18.0); LYMPHOCYTES # (AUTO) 0.7 X10^3/uL (1.3-2.9); LYMPHOCYTES % (AUTO) 5.7 % (21.0-51.0); MEAN CORPUSCULAR HEMOGLOBIN 30.7 pg (27.0-34.0); MEAN CORPUSCULAR HGB CONC 33.6 g/dL (33.0-35.0); MEAN CORPUSCULAR VOLUME 91.5 fL (80.0-100.0); MEAN PLATELET VOLUME 9.5 fL (7.4-11.0); MONOCYTES # (AUTO) 1.1 x10^3/uL (0.3-0.8); NEUTROPHILS # (AUTO) 10.5 x10^3/uL (2.2-4.8); NEUTROPHILS % (AUTO) 85.1 % (42.0-75.0); RED BLOOD COUNT 2.76 X10^6/uL (4.7-6.0); RED CELL DISTRIBUTION WIDTH 15.8 % (11.6-16.5); WHITE BLOOD COUNT 12.3 X10^3/uL (3.6-10.0)
[2021-08-30 06:13] LABS: ALBUMIN 1.7 g/dL (3.4-5.0); CARBON DIOXIDE 20.5 mmol/L (21-32); COR CA(FOR HYPOALB) 9.8 mg/dL (8.5-10.1); CREATININE 2.46 mg/dL (0.70-1.30); TOTAL PROTEIN 5.4 g/dL (6.4-8.2)
--- NOTE | 2021-08-30 07:09 | RAD ---
HISTORYPNEUMONIA F/USTUDYCHEST, 1 [id number]/07/2022.TECHNIQUEAP view of the chestFINDINGSStatus post median sternotomy and CABG. Cardiac and mediastinal contours are within normal limits. Similar appearing left base pleural parenchymal opacity. Similar right midlung airspace opacity at the superior border of the right minor fissure. Blunted right costophrenic sulcus. No definite pneumothorax. Left apical bulla.IMPRESSIONNo significant radiographic change compared to prior study. Moderate left pleural effusion with associated opacity that may represent atelectasis or pneumonia. Mild right upper lobe pneumonia. Small right pleural effusion. Biapical emphysema.Electronically signed by: Luis Bowen (Aug 30, 2021 07:08:18)
--- NOTE | 2021-08-30 07:57 | PCM.PROG ---
Progress Note Progress Note for Day of Date of Exam: 08/30/21 Subjective Subjective: Pt is a 76 year old male past medical history of Hypertension, CABG, COPD, CKD admitted for pneumonia and strep pneu. bacteremia. This morning he is resting comfortably in bed. No acute events overnight. Labs/imaging: Wbc 12.3, Hgb 8.5, Plt 241, Na 134, K 3.2, Creatinine 2.46, Glucose 140, Blood cultures positive strep pneumoniae x2. CT chest was obtained that revealed: Further atelectasis of the left lower lobe when compared to prior. There is a moderate- sized chronic left effusion as well as rounded atelectasis of the left lung.2.Acute appearing airspace disease of the right middle lobe suggestive of pneumonia. 3. Small right pleural effusion. Pt is currently on IVF NS@KVO, Current antibiotics: Rocephin and Doxycycline, bronchodilators, home medications were resumed. Leukocytosis is trending down. Repeat blood cultures pending. Order echo to rule out endocarditis, unable to get until Thursday due to staff shortage. Pt also is a smoker and reviewing CT chest noted chronic pleural effusion. Consult general surgery-Dr Lowery for evaluation. Hypokalemia on labs, replete per protocol. Otherwise, continue with current treatment plan. Closely monitor and follow up labs/imaging. Past Medical Family Social History Allergies: Allergies No Known Drug Allergies Allergy (Verified 09/13/19 13:55) Review of Systems ROS: No change since H&P Vital Signs and I&O's Vital Signs: Temperature 97.6 F Pulse Rate [Left Radial] 67 Pulse Rate 71 Respiratory Rate 28 Blood Pressure [Right Arm] 126/60 Blood Pressure 130/60 O2 Sat by Pulse Oximetry 95 Intake and Output: Intake & Output 08/27/21 08/28/21 08/29/21 08/30/21 23:59 23:59 23:59 23:59 Intake Total 3120 / 3120 2018 358 / 358 Output Total 1924 / 1921999 / 1999 2395 / 2395 275 / 275 Balance 1195 / 1195 / -324 / -324 83 / 83 Physical Exam Oriented: Normal Eyes: Normal Ear: Normal Nose: Normal Throat: Normal Respiratory: Rales Cardiovascular: Normal : Normal Auscultation: Bowel Sounds: Normal Tenderness: Normal Skin: Normal Musculoskeletal: Normal Psychiatric: Normal Mood Description: Calm and Appropriate Affect: Normal Speech Pattern: Clear and Appropriate Laboratory and Diagnostics Result Diagrams: 08/30/21 04:19 08/30/21 04:19 Labs: 08/26/21 20:18 Blood Blood Culture - Final Streptococcus Pneumoniae 08/26/21 19:55 Blood Blood Culture - Final Streptococcus Pneumoniae 08/27/21 08:43 Sputum - Expectorated Sputum Sputum Culture - Final 08/27/21 08:43 Sputum - Expectorated Sputum - Final Laboratory WBC 12.3 X10^3/uL (3.6-10.0) H 08/30/21 04:19 RBC 2.76 X10^6/uL (4.7-6.0) L 08/30/21 04:19 Hgb 8.5 g/dL (13.5-18.0) L 08/30/21 04:19 Hct 25.3 % (42.0-54.0) L 08/30/21 04:19 MCV 91.5 fL (80.0-100.0) 08/30/21 04:19 MCH 30.7 pg (27.0-34.0) 08/30/21 04:19 MCHC 33.6 g/dL (33.0-35.0) 08/30/21 04:19 RDW 15.8 % (11.6-16.5) 08/30/21 04:19 Plt Count 241 X10^3/uL (150.0-450.0) 08/30/21 04:19 Plt Count Comment Adequate (ADEQUATE) 08/27/21 04:37 MPV 9.5 fL (7.4-11.0) 08/30/21 04:19 Neut % (Auto) 85.1 % (42.0-75.0) H 08/30/21 04:19 Lymph % (Auto) 5.7 % (21.0-51.0) L 08/30/21 04:19 [place] % (Auto) 9.0 % (0.0-13.0) 08/30/21 04:19 Eos % (Auto) 0.1 % (0.9-2.9) L 08/30/21 04:19 Baso % (Auto) 0.1 % (0.2-1.0) L 08/30/21 04:19 Neut # (Auto) 10.5 x10^3/uL (2.2-4.8) H 08/30/21 04:19 Lymph # (Auto) 0.7 X10^3/uL (1.3-2.9) L 08/30/21 04:19 [place] # (Auto) 1.1 x10^3/uL (0.3-0.8) H 08/30/21 04:19 Eos # (Auto) 0.0 x10^3/uL (0.0-0.2) 08/30/21 04:19 Baso # (Auto) 0.0 X10^3/uL (0.0-0.1) 08/30/21 04:19 Absolute Nucleated RBC 0.1 /100WBC 08/30/21 04:19 Total Counted 100 08/27/21 04:37 Neutrophils % (Manual) 89 % (39-76) H 08/27/21 04:37 Band Neutrophils % 6 % (0-10) 08/27/21 04:37 Lymphocytes % (Manual) 2 % (13-43) L 08/27/21 04:37 Monocytes % (Manual) 3 % (4-9) L 08/27/21 04:37 Plt Morphology Comment Normal (NORMAL) 08/27/21 04:37 RBC Morphology Normal (NORMAL) 08/27/21 04:37 PT 14.8 SECONDS (11.8-14.3) 08/27/21 04:37 INR Target Range - 08/27/21 04:37 INR 1.20 (0.8-1.3) 08/27/21 04:37 APTT 32.7 SECONDS (22.9-36.5) 08/27/21 04:37 PTT Comment - 08/27/21 04:37 D-Dimer 3.81 ug/ml (0.0-0.57) H* 08/26/21 16:55 Sodium 134 mmol/L (136-145) L 08/30/21 04:19 Corrected Sodium 135 mmol/L (136-145) L 08/30/21 04:19 Potassium 3.2 mmol/L (3.5-5.1) L 08/30/21 04:19 Chloride 102 mmol/L (98-107) 08/30/21 04:19 Carbon Dioxide 20.5 mmol/L (21-32) L 08/30/21 04:19 BUN 69 mg/dL (7-18) H 08/30/21 04:19 Creatinine 2.46 mg/dL (0.70-1.30) H 08/30/21 04:19 Est GFR (MDRD) Af Amer 33 (>60) L 08/30/21 04:19 Est GFR (MDRD) Non-Af 27 (>60) L 08/30/21 04:19 Glucose 140 mg/dL (65-99) H 08/30/21 04:19 Lactic Acid 1.0 mmol/L (0.4-2.0) 08/26/21 19:55 Calcium 8.0 mg/dL (8.5-10.1) L 08/30/21 04:19 Corrected Calcium 9.8 mg/dL (8.5-10.1) 08/30/21 04:19 Magnesium 1.6 mg/dL (1.7-2.9) L 08/27/21 04:37 Total Bilirubin 0.40 mg/dL (0.2-1.0) 08/30/21 04:19 AST 17 Units/L (15-37) 08/30/21 04:19 ALT 22 Units/L (12-78) 08/30/21 04:19 Alkaline Phosphatase 118 Units/L (46-116) H 08/30/21 04:19 Creatine Kinase 71 Units/L (39-308) 08/27/21 10:12 CK-MB (CK-2) 3.7 ng/mL (0-4.0) 08/27/21 10:12 CK/CKMB % Calc 5.2 % (<4) 08/27/21 10:12 Troponin I High Sens 54.0 ng/L (4.0-60.0) 08/27/21 10:12 Total Protein 5.4 g/dL (6.4-8.2) L 08/30/21 04:19 Albumin 1.7 g/dL (3.4-5.0) L 08/30/21 04:19 Globulin 3.7 g/dL (2.5-4.5) 08/30/21 04:19 Albumin/Globulin Ratio 0.5 Ratio (1.1-2.1) L 08/30/21 04:19 Specimen Type Clean catch urine 08/27/21 01:30 Urine Color Yellow (YELLOW) 08/27/21 01:30 Urine Appearance Clear (CLEAR) 08/27/21 01:30 Urine pH 5.0 (5.0 - 8.0) 08/27/21 01:30 Ur Specific [place] 1.015 (1.000-1.030) 08/27/21 01:30 Urine Protein Negative (NEGATIVE) 08/27/21 01:30 Urine Glucose (UA) Negative (NEGATIVE) 08/27/21 01:30 Urine Ketones Negative (NEGATIVE) 08/27/21 01:30 Urine Blood Negative (NEGATIVE) 08/27/21 01:30 Urine Nitrite Negative (NEGATIVE) 08/27/21 01:30 Urine Bilirubin Negative (NEGATIVE) 08/27/21 01:30 Urine Urobilinogen Normal (NORMAL) 08/27/21 01:30 Ur Leukocyte Esterase Negative (NEGATIVE) 08/27/21 01:30 SARS-CoV-2 (PCR) Negative (NEGATIVE) 08/26/21 17:20 Influenza Type A (PCR) Negative (NEGATIVE) 08/26/21 17:20 Influenza Type B (PCR) Negative (NEGATIVE) 08/26/21 17:20 RSV (PCR) Negative (NEGATIVE) 08/26/21 17:20 Plan (1) Bacteremia due to Streptococcus pneumoniae: Status: Acute (2) Pneumonia: Status: Acute (3) Chest pain, rule out acute myocardial infarction: Status: Acute (4) CKD (chronic kidney disease) stage 4, GFR 15-29 ml/min: Status: Acute
[2021-08-30] MEDS: NS 1,000 ML IV 1,000 ML IV SCH ×3 (07:59→17:50)
[2021-08-30] MEDS ORDERED: KLOR-CON PO PRN (08:05)
[2021-08-30] MEDS ORDERED: K-RIDER 10 MEQ/NS 100 ML 10 MEQ/100 ML BAG IV PRN (08:05)
[2021-08-30] MEDS ORDERED: MICRO K EXTEN CAP 10 MEQ PO PRN (08:05)
[2021-08-30] MEDS ORDERED: POTASSIUM CHL 60 MEQ/NS 0.45% 500 ML IV PRN (08:05)
[2021-08-30] MEDS ORDERED: POTASSIUM CHL 40 MEQ/NS 0.45% 500 ML IV PRN (08:05)
[2021-08-30] MEDS ORDERED: POTASSIUM CHLORIDE LIQ 20 MEQ UDC PO PRN (08:05)
[2021-08-30] MEDS: K-DUR TAB 20 MEQ PO PRN (08:46)
[2021-08-30] MEDS: COREG TAB 12.5 MG PO SCH ×2 (08:47→20:45)
[2021-08-30] MEDS: CATAPRES TAB 0.1 MG PO SCH ×2 (08:47→20:45)
[2021-08-30] MEDS: LOVENOX INJ 30 MG SYR SC SCH (08:47)
[2021-08-30] MEDS: LASIX PO SCH (08:47)
[2021-08-30] MEDS: VIBRAMYCIN 100 MG in NS 100 ML IV 100 ML IV SCH ×2 (08:48→20:45)
[2021-08-30] MEDS: PROCARDIA XL PO SCH (08:48)
[2021-08-30] MEDS: NICOTINE PATCH TD SCH (08:48)
[2021-08-30] MEDS ORDERED: XYLOCAINE 1 % (PLAIN) ONE (08:52)
[2021-08-30] MEDS ORDERED: LOPRESSOR INJ 5 MG AMP IVP ONE (08:56)
[2021-08-30] MEDS: PROVENTIL NEB TX 0.083% 2.5MG/ 3ML NEB SCH ×4 (09:04→20:05)
[2021-08-30] MEDS: ROCEPHIN VIAL 1 GRAM 1 G in NS 100 ML IV 100 ML IV SCH (09:14)
[2021-08-30] MEDS ORDERED: CARDIZEM INJ 50 MG VIAL IVP ONE (14:32)
[2021-08-30] MEDS: MAGNESIUM SULFATE 1 GRAM/100 mL PREMIX 1 G/100 ML BAG IV PRN ×2 (16:35→17:50)
[2021-08-30] MEDS: MORPHINE SULFATE INJ 2 MG INJ IVP PRN (22:52)
[2021-08-31 05:21] LABS: BASOPHILS % (AUTO) 0.2 % (0.2-1.0); EOSINOPHILS # (AUTO) 0.1 x10^3/uL (0.0-0.2); EOSINOPHILS % (AUTO) 0.7 % (0.9-2.9); HEMATOCRIT 26.6 % (42.0-54.0); HEMOGLOBIN 9.1 g/dL (13.5-18.0); LYMPHOCYTES # (AUTO) 0.9 X10^3/uL (1.3-2.9); LYMPHOCYTES % (AUTO) 7.7 % (21.0-51.0); MEAN CORPUSCULAR HEMOGLOBIN 31.2 pg (27.0-34.0); MEAN CORPUSCULAR HGB CONC 34.2 g/dL (33.0-35.0); MEAN CORPUSCULAR VOLUME 91.4 fL (80.0-100.0); MEAN PLATELET VOLUME 9.2 fL (7.4-11.0); MONOCYTES # (AUTO) 0.8 x10^3/uL (0.3-0.8); MONOCYTES % (AUTO) 7.2 % (0.0-13.0); NEUTROPHILS # (AUTO) 9.4 x10^3/uL (2.2-4.8); NEUTROPHILS % (AUTO) 84.2 % (42.0-75.0); RED BLOOD COUNT 2.91 X10^6/uL (4.7-6.0); RED CELL DISTRIBUTION WIDTH 15.5 % (11.6-16.5); WHITE BLOOD COUNT 11.1 X10^3/uL (3.6-10.0)
[2021-08-31 05:26] LABS: ALBUMIN 1.6 g/dL (3.4-5.0); CARBON DIOXIDE 20.4 mmol/L (21-32); COR CA(FOR HYPOALB) 9.9 mg/dL (8.5-10.1); CREATININE 2.18 mg/dL (0.70-1.30); TOTAL PROTEIN 5.2 g/dL (6.4-8.2)
[2021-08-31] MEDS: NS 1,000 ML IV 1,000 ML IV SCH ×3 (06:51→17:54)
--- NOTE | 2021-08-31 08:06 | RAD ---
PROCEDURE: Chest X-ray 1 View .HISTORY: Follow-up pneumonia.TECHNIQUE: AP view .COMPARISON: 08/30/2021.TECHNICAL QUALITY: Satisfactory .FINDINGS:Normal size heart .Mediastinum and hilar regions show no masses or lymphadenopathy .Normal central vascularity .Continued consolidation and pleural fluid left base consistent with pneumonia. Some mild consolidation right upper lobe at the minor fissure that is unchanged.No acute bony abnormality .IMPRESSION:Unchanged bilateral pneumonia greatest on the left with pleural fluid left base.Electronically signed by: Johnny Thompson (Aug 31, 2021 08:04:47)
[2021-08-31] MEDS: CATAPRES TAB 0.1 MG PO SCH ×2 (09:04→21:10)
[2021-08-31] MEDS: LASIX PO SCH (09:05)
[2021-08-31] MEDS: LOVENOX INJ 30 MG SYR SC SCH (09:05)
[2021-08-31] MEDS: COREG TAB 12.5 MG PO SCH ×2 (09:05→21:15)
[2021-08-31] MEDS: PROCARDIA XL PO SCH (09:06)
[2021-08-31] MEDS: NICOTINE PATCH TD SCH (09:06)
[2021-08-31] MEDS: ROCEPHIN VIAL 1 GRAM 1 G in NS 100 ML IV 100 ML IV SCH (09:06)
[2021-08-31] MEDS: K-DUR TAB 20 MEQ PO PRN (09:07)
[2021-08-31] MEDS: VIBRAMYCIN 100 MG in NS 100 ML IV 100 ML IV SCH ×2 (09:17→21:15)
[2021-08-31] MEDS: PROVENTIL NEB TX 0.083% 2.5MG/ 3ML NEB SCH ×4 (09:30→21:00)
--- NOTE | 2021-08-31 11:21 | PCM.PROG ---
Progress Note Progress Note for Day of Date of Exam: 08/31/21 Subjective Subjective: Pt is a 76 year old male past medical history of Hypertension, CABG, COPD, CKD admitted for pneumonia and strep pneu. bacteremia. This morning he is alert and resting comfortably in bed. Yesterday, pt did have episode of atrial fibrillation. IV metoprolol and IV diltiazem was ordered that converted patient back into normal sinus rhythm. No acute events overnight. Per nursing his appetite has improved and he had bowel movement yesterday. Labs/imaging: Wbc 11.1, Hgb 9.1, Plt 251, Na 136, K 3.3, Creatinine 2.18, Glucose 126, Blood cultures positive strep pneumoniae x2, repeat blood cultures pending. CXR was obtained that revealed: Unchanged bilateral pneumonia greatest on the left with pleural fluid left base. Pt is currently on IVF NS@KVO, Current antibiotics: Rocephin and Doxycycline, bronchodilators, home medications were resumed. Leukocytosis continues to trend down. Order echo to rule out endocarditis, unable to get until Thursday due to staff shortage. Pt also is a smoker and reviewing CT chest noted chronic pleural effusion. General surgery-Dr Lowery was consulted, will do thoracentesis on Thursday. Hypokalemia on labs, replete per protocol. Otherwise, continue with current treatment plan. Closely monitor and follow up labs/imaging. Time spent on clinical assessment, reviewing labs and imaging, decision making, and documentation greater than 45 minutes. Past Medical Family Social History Allergies: Allergies No Known Drug Allergies Allergy (Verified 09/13/19 13:55) Review of Systems ROS: No change since H&P Vital Signs and I&O's Vital Signs: Temperature 98.1 F Pulse Rate [Left Radial] 67 Pulse Rate 60 Respiratory Rate 27 Blood Pressure [Right Arm] 126/60 Blood Pressure 114/55 O2 Sat by Pulse Oximetry 94 Intake and Output: Intake & Output 08/28/21 08/29/21 08/30/21 08/31/21 23:59 23:59 23:59 23:59 Intake Total 2018 2071 / 2071 1722 / 1722 470 / 470 Output Total 1999 2395 / 2395 1575 / 1575 200 / 200 Balance -324 / -324 147 / 147 270 / 270 Physical Exam Oriented: Normal Eyes: Normal Ear: Normal Nose: Normal Throat: Normal Respiratory: Rales Cardiovascular: Normal : Normal Auscultation: Bowel Sounds: Normal Tenderness: Normal Skin: Normal Musculoskeletal: Normal Psychiatric: Normal Mood Description: Calm and Appropriate Affect: Normal Speech Pattern: Clear and Appropriate Laboratory and Diagnostics Result Diagrams: 08/31/21 04:00 08/31/21 04:00 Labs: 08/29/21 08:53 Blood Blood Culture - Preliminary 08/29/21 08:30 Blood Blood Culture - Preliminary 08/26/21 20:18 Blood Blood Culture - Final Streptococcus Pneumoniae 08/26/21 19:55 Blood Blood Culture - Final Streptococcus Pneumoniae 08/27/21 08:43 Sputum - Expectorated Sputum Sputum Culture - Final 08/27/21 08:43 Sputum - Expectorated Sputum - Final Laboratory WBC 11.1 X10^3/uL (3.6-10.0) H 08/31/21 04:00 RBC 2.91 X10^6/uL (4.7-6.0) L 08/31/21 04:00 Hgb 9.1 g/dL (13.5-18.0) L 08/31/21 04:00 Hct 26.6 % (42.0-54.0) L 08/31/21 04:00 MCV 91.4 fL (80.0-100.0) 08/31/21 04:00 MCH 31.2 pg (27.0-34.0) 08/31/21 04:00 MCHC 34.2 g/dL (33.0-35.0) 08/31/21 04:00 RDW 15.5 % (11.6-16.5) 08/31/21 04:00 Plt Count 251 X10^3/uL (150.0-450.0) 08/31/21 04:00 Plt Count Comment Adequate (ADEQUATE) 08/27/21 04:37 MPV 9.2 fL (7.4-11.0) 08/31/21 04:00 Neut % (Auto) 84.2 % (42.0-75.0) H 08/31/21 04:00 Lymph % (Auto) 7.7 % (21.0-51.0) L 08/31/21 04:00 [place] % (Auto) 7.2 % (0.0-13.0) 08/31/21 04:00 Eos % (Auto) 0.7 % (0.9-2.9) L 08/31/21 04:00 Baso % (Auto) 0.2 % (0.2-1.0) 08/31/21 04:00 Neut # (Auto) 9.4 x10^3/uL (2.2-4.8) H 08/31/21 04:00 Lymph # (Auto) 0.9 X10^3/uL (1.3-2.9) L 08/31/21 04:00 [place] # (Auto) 0.8 x10^3/uL (0.3-0.8) 08/31/21 04:00 Eos # (Auto) 0.1 x10^3/uL (0.0-0.2) 08/31/21 04:00 Baso # (Auto) 0.0 X10^3/uL (0.0-0.1) 08/31/21 04:00 Absolute Nucleated RBC 0.1 /100WBC 08/31/21 04:00 Total Counted 100 08/27/21 04:37 Neutrophils % (Manual) 89 % (39-76) H 08/27/21 04:37 Band Neutrophils % 6 % (0-10) 08/27/21 04:37 Lymphocytes % (Manual) 2 % (13-43) L 08/27/21 04:37 Monocytes % (Manual) 3 % (4-9) L 08/27/21 04:37 Plt Morphology Comment Normal (NORMAL) 08/27/21 04:37 RBC Morphology Normal (NORMAL) 08/27/21 04:37 PT 14.8 SECONDS (11.8-14.3) 08/27/21 04:37 INR Target Range - 08/27/21 04:37 INR 1.20 (0.8-1.3) 08/27/21 04:37 APTT 32.7 SECONDS (22.9-36.5) 08/27/21 04:37 PTT Comment - 08/27/21 04:37 D-Dimer 3.81 ug/ml (0.0-0.57) H* 08/26/21 16:55 Sodium 136 mmol/L (136-145) 08/31/21 04:00 Corrected Sodium 137 mmol/L (136-145) 08/31/21 04:00 Potassium 3.3 mmol/L (3.5-5.1) L 08/31/21 04:00 Chloride 104 mmol/L (98-107) 08/31/21 04:00 Carbon Dioxide 20.4 mmol/L (21-32) L 08/31/21 04:00 BUN 64 mg/dL (7-18) H 08/31/21 04:00 Creatinine 2.18 mg/dL (0.70-1.30) H 08/31/21 04:00 Est GFR (MDRD) Af Amer 38 (>60) L 08/31/21 04:00 Est GFR (MDRD) Non-Af 32 (>60) L 08/31/21 04:00 Glucose 126 mg/dL (65-99) H 08/31/21 04:00 Lactic Acid 1.0 mmol/L (0.4-2.0) 08/26/21 19:55 Calcium 8.0 mg/dL (8.5-10.1) L 08/31/21 04:00 Corrected Calcium 9.9 mg/dL (8.5-10.1) 08/31/21 04:00 Magnesium 2.0 mg/dL (1.7-2.9) 08/31/21 04:00 Total Bilirubin 0.30 mg/dL (0.2-1.0) 08/31/21 04:00 AST 16 Units/L (15-37) 08/31/21 04:00 ALT 19 Units/L (12-78) 08/31/21 04:00 Alkaline Phosphatase 103 Units/L (46-116) 08/31/21 04:00 Creatine Kinase 71 Units/L (39-308) 08/27/21 10:12 CK-MB (CK-2) 3.7 ng/mL (0-4.0) 08/27/21 10:12 CK/CKMB % Calc 5.2 % (<4) 08/27/21 10:12 Troponin I High Sens 54.0 ng/L (4.0-60.0) 08/27/21 10:12 Total Protein 5.2 g/dL (6.4-8.2) L 08/31/21 04:00 Albumin 1.6 g/dL (3.4-5.0) L 08/31/21 04:00 Globulin 3.6 g/dL (2.5-4.5) 08/31/21 04:00 Albumin/Globulin Ratio 0.4 Ratio (1.1-2.1) L 08/31/21 04:00 Specimen Type Clean catch urine 08/27/21 01:30 Urine Color Yellow (YELLOW) 08/27/21 01:30 Urine Appearance Clear (CLEAR) 08/27/21 01:30 Urine pH 5.0 (5.0 - 8.0) 08/27/21 01:30 Ur Specific [place] 1.015 (1.000-1.030) 08/27/21 01:30 Urine Protein Negative (NEGATIVE) 08/27/21 01:30 Urine Glucose (UA) Negative (NEGATIVE) 08/27/21 01:30 Urine Ketones Negative (NEGATIVE) 08/27/21 01:30 Urine Blood Negative (NEGATIVE) 08/27/21 01:30 Urine Nitrite Negative (NEGATIVE) 08/27/21 01:30 Urine Bilirubin Negative (NEGATIVE) 08/27/21 01:30 Urine Urobilinogen Normal (NORMAL) 08/27/21 01:30 Ur Leukocyte Esterase Negative (NEGATIVE) 08/27/21 01:30 SARS-CoV-2 (PCR) Negative (NEGATIVE) 08/26/21 17:20 Influenza Type A (PCR) Negative (NEGATIVE) 08/26/21 17:20 Influenza Type B (PCR) Negative (NEGATIVE) 08/26/21 17:20 RSV (PCR) Negative (NEGATIVE) 08/26/21 17:20 Plan (1) Bacteremia due to Streptococcus pneumoniae: Status: Acute (2) Pneumonia: Status: Acute (3) Chest pain, rule out acute myocardial infarction: Status: Acute (4) CKD (chronic kidney disease) stage 4, GFR 15-29 ml/min: Status: Acute
[2021-09-01 05:25] LABS: BASOPHILS % (AUTO) 0.1 % (0.2-1.0); EOSINOPHILS # (AUTO) 0.1 x10^3/uL (0.0-0.2); EOSINOPHILS % (AUTO) 0.5 % (0.9-2.9); HEMATOCRIT 26.9 % (42.0-54.0); HEMOGLOBIN 9.1 g/dL (13.5-18.0); LYMPHOCYTES # (AUTO) 0.9 X10^3/uL (1.3-2.9); LYMPHOCYTES % (AUTO) 7.7 % (21.0-51.0); MEAN CORPUSCULAR HGB CONC 33.7 g/dL (33.0-35.0); MEAN PLATELET VOLUME 8.6 fL (7.4-11.0); MONOCYTES # (AUTO) 0.9 x10^3/uL (0.3-0.8); MONOCYTES % (AUTO) 7.1 % (0.0-13.0); NEUTROPHILS # (AUTO) 10.3 x10^3/uL (2.2-4.8); NEUTROPHILS % (AUTO) 84.6 % (42.0-75.0); RED BLOOD COUNT 2.93 X10^6/uL (4.7-6.0); RED CELL DISTRIBUTION WIDTH 15.4 % (11.6-16.5); WHITE BLOOD COUNT 12.2 X10^3/uL (3.6-10.0)
[2021-09-01 05:44] LABS: ALBUMIN 1.8 g/dL (3.4-5.0); CALCIUM 8.1 mg/dL (8.5-10.1); CARBON DIOXIDE 22.4 mmol/L (21-32); COR CA(FOR HYPOALB) 9.9 mg/dL (8.5-10.1); CREATININE 2.05 mg/dL (0.70-1.30); TOTAL PROTEIN 5.5 g/dL (6.4-8.2)
--- NOTE | 2021-09-01 06:40 | RAD ---
HISTORYFollow up pneumoniaSTUDYAP [id number] appearance of segmental right upper lobe pneumonia, normal heart size and extensive left pleural effusion with underlying airspace disease in the obscured left lower lung.IMPRESSIONNo change.Electronically signed by: MIKAELA PALOMO (Sep 01, 2021 06:39:08)
[2021-09-01] MEDS: NS 1,000 ML IV 1,000 ML IV SCH ×3 (06:58→18:22)
[2021-09-01] MEDS: CATAPRES TAB 0.1 MG PO SCH ×2 (08:14→21:18)
[2021-09-01] MEDS: NICOTINE PATCH TD SCH (08:14)
[2021-09-01] MEDS: LASIX PO SCH (08:15)
[2021-09-01] MEDS: COREG TAB 12.5 MG PO SCH ×2 (08:15→21:18)
[2021-09-01] MEDS: PROCARDIA XL PO SCH (08:15)
[2021-09-01] MEDS: LOVENOX INJ 30 MG SYR SC SCH (08:15)
[2021-09-01] MEDS: VIBRAMYCIN 100 MG in NS 100 ML IV 100 ML IV SCH (08:15)
[2021-09-01] MEDS: ROCEPHIN VIAL 1 GRAM 1 G in NS 100 ML IV 100 ML IV SCH (08:15)
[2021-09-01] MEDS: PROVENTIL NEB TX 0.083% 2.5MG/ 3ML NEB SCH ×4 (09:45→20:45)
--- NOTE | 2021-09-01 09:56 | PCM.PROG ---
Progress Note Progress Note for Day of Date of Exam: 09/01/21 Subjective Subjective: Pt is a 76 year old male past medical history of Hypertension, CABG, COPD, CKD admitted for pneumonia and strep pneu. bacteremia. This morning he reports feeling better. No acute events overnight. Labs/imaging: Wbc 12.2, Hgb 9.1, Plt 271, Na 136, K 3.5, Creatinine 2.05, Glucose 145, Blood cultures positive strep pneumoniae x2, repeat blood cultures prelim NGTD. CXR was obtained that revealed: Unchanged bilateral pneumonia greatest on the left with pleural fluid left base. Pt is currently on IVF NS@KVO, Current antibiotics: Rocephin and Doxycycline, bronchodilators, home medications were resumed. Order echo to rule out endocarditis, unable to get until Thursday due to staff shortage. Pt also is a smoker and reviewing CT chest noted chronic pleural effusion. General surgery-Dr Lowery was consulted, will do thoracentesis on Thursday. Will also order for PICC line placement. Otherwise, continue with current treatment plan. Closely monitor and follow up labs/imaging. Past Medical Family Social History Allergies: Allergies No Known Drug Allergies Allergy (Verified 09/13/19 13:55) Review of Systems ROS: No change since H&P Vital Signs and I&O's Vital Signs: Temperature 97.9 F Pulse Rate [Left Radial] 67 Pulse Rate 64 Respiratory Rate 23 Blood Pressure [Right Arm] 126/60 Blood Pressure 130/59 O2 Sat by Pulse Oximetry 94 Intake and Output: Intake & Output 08/29/21 08/30/21 08/31/21 09/01/21 23:59 23:59 23:59 23:59 Intake Total 2071 / 2071 1722 / 1722 1713 / 1713 390 / 390 Output Total 2395 / 2395 1575 / 1575 1999 / 1999 300 / 300 Balance -324 / -324 147 / 147 -287 / -287 90 / 90 Physical Exam Oriented: Normal Eyes: Normal Ear: Normal Nose: Normal Throat: Normal Respiratory: Rales Cardiovascular: Normal : Normal Auscultation: Bowel Sounds: Normal Tenderness: Normal Skin: Normal Musculoskeletal: Normal Psychiatric: Normal Mood Description: Calm and Appropriate Affect: Normal Speech Pattern: Clear and Appropriate Laboratory and Diagnostics Result Diagrams: 09/01/21 05:00 09/01/21 05:00 Labs: 08/29/21 08:53 Blood Blood Culture - Preliminary 08/29/21 08:30 Blood Blood Culture - Preliminary 08/26/21 20:18 Blood Blood Culture - Final Streptococcus Pneumoniae 08/26/21 19:55 Blood Blood Culture - Final Streptococcus Pneumoniae 08/27/21 08:43 Sputum - Expectorated Sputum Sputum Culture - Final 08/27/21 08:43 Sputum - Expectorated Sputum - Final Laboratory WBC 12.2 X10^3/uL (3.6-10.0) H 09/01/21 05:00 RBC 2.93 X10^6/uL (4.7-6.0) L 09/01/21 05:00 Hgb 9.1 g/dL (13.5-18.0) L 09/01/21 05:00 Hct 26.9 % (42.0-54.0) L 09/01/21 05:00 MCV 92.0 fL (80.0-100.0) 09/01/21 05:00 MCH 31.0 pg (27.0-34.0) 09/01/21 05:00 MCHC 33.7 g/dL (33.0-35.0) 09/01/21 05:00 RDW 15.4 % (11.6-16.5) 09/01/21 05:00 Plt Count 271 X10^3/uL (150.0-450.0) 09/01/21 05:00 Plt Count Comment Adequate (ADEQUATE) 08/27/21 04:37 MPV 8.6 fL (7.4-11.0) 09/01/21 05:00 Neut % (Auto) 84.6 % (42.0-75.0) H 09/01/21 05:00 Lymph % (Auto) 7.7 % (21.0-51.0) L 09/01/21 05:00 [place] % (Auto) 7.1 % (0.0-13.0) 09/01/21 05:00 Eos % (Auto) 0.5 % (0.9-2.9) L 09/01/21 05:00 Baso % (Auto) 0.1 % (0.2-1.0) L 09/01/21 05:00 Neut # (Auto) 10.3 x10^3/uL (2.2-4.8) H 09/01/21 05:00 Lymph # (Auto) 0.9 X10^3/uL (1.3-2.9) L 09/01/21 05:00 [place] # (Auto) 0.9 x10^3/uL (0.3-0.8) H 09/01/21 05:00 Eos # (Auto) 0.1 x10^3/uL (0.0-0.2) 09/01/21 05:00 Baso # (Auto) 0.0 X10^3/uL (0.0-0.1) 09/01/21 05:00 Absolute Nucleated RBC 0.2 /100WBC 09/01/21 05:00 Total Counted 100 08/27/21 04:37 Neutrophils % (Manual) 89 % (39-76) H 08/27/21 04:37 Band Neutrophils % 6 % (0-10) 08/27/21 04:37 Lymphocytes % (Manual) 2 % (13-43) L 08/27/21 04:37 Monocytes % (Manual) 3 % (4-9) L 08/27/21 04:37 Plt Morphology Comment Normal (NORMAL) 08/27/21 04:37 RBC Morphology Normal (NORMAL) 08/27/21 04:37 PT 14.8 SECONDS (11.8-14.3) 08/27/21 04:37 INR Target Range - 08/27/21 04:37 INR 1.20 (0.8-1.3) 08/27/21 04:37 APTT 32.7 SECONDS (22.9-36.5) 08/27/21 04:37 PTT Comment - 08/27/21 04:37 D-Dimer 3.81 ug/ml (0.0-0.57) H* 08/26/21 16:55 Sodium 136 mmol/L (136-145) 09/01/21 05:00 Corrected Sodium 137 mmol/L (136-145) 09/01/21 05:00 Potassium 3.5 mmol/L (3.5-5.1) 09/01/21 05:00 Chloride 104 mmol/L (98-107) 09/01/21 05:00 Carbon Dioxide 22.4 mmol/L (21-32) 09/01/21 05:00 BUN 56 mg/dL (7-18) H 09/01/21 05:00 Creatinine 2.05 mg/dL (0.70-1.30) H 09/01/21 05:00 Est GFR (MDRD) Af Amer 41 (>60) L 09/01/21 05:00 Est GFR (MDRD) Non-Af 34 (>60) L 09/01/21 05:00 Glucose 145 mg/dL (65-99) H 09/01/21 05:00 Lactic Acid 1.0 mmol/L (0.4-2.0) 08/26/21 19:55 Calcium 8.1 mg/dL (8.5-10.1) L 09/01/21 05:00 Corrected Calcium 9.9 mg/dL (8.5-10.1) 09/01/21 05:00 Magnesium 2.0 mg/dL (1.7-2.9) 08/31/21 04:00 Total Bilirubin 0.30 mg/dL (0.2-1.0) 09/01/21 05:00 AST 20 Units/L (15-37) 09/01/21 05:00 ALT 24 Units/L (12-78) 09/01/21 05:00 Alkaline Phosphatase 106 Units/L (46-116) 09/01/21 05:00 Creatine Kinase 71 Units/L (39-308) 08/27/21 10:12 CK-MB (CK-2) 3.7 ng/mL (0-4.0) 08/27/21 10:12 CK/CKMB % Calc 5.2 % (<4) 08/27/21 10:12 Troponin I High Sens 54.0 ng/L (4.0-60.0) 08/27/21 10:12 Total Protein 5.5 g/dL (6.4-8.2) L 09/01/21 05:00 Albumin 1.8 g/dL (3.4-5.0) L 09/01/21 05:00 Globulin 3.7 g/dL (2.5-4.5) 09/01/21 05:00 Albumin/Globulin Ratio 0.5 Ratio (1.1-2.1) L 09/01/21 05:00 Specimen Type Clean catch urine 08/27/21 01:30 Urine Color Yellow (YELLOW) 08/27/21 01:30 Urine Appearance Clear (CLEAR) 08/27/21 01:30 Urine pH 5.0 (5.0 - 8.0) 08/27/21 01:30 Ur Specific [place] 1.015 (1.000-1.030) 08/27/21 01:30 Urine Protein Negative (NEGATIVE) 08/27/21 01:30 Urine Glucose (UA) Negative (NEGATIVE) 08/27/21 01:30 Urine Ketones Negative (NEGATIVE) 08/27/21 01:30 Urine Blood Negative (NEGATIVE) 08/27/21 01:30 Urine Nitrite Negative (NEGATIVE) 08/27/21 01:30 Urine Bilirubin Negative (NEGATIVE) 08/27/21 01:30 Urine Urobilinogen Normal (NORMAL) 08/27/21 01:30 Ur Leukocyte Esterase Negative (NEGATIVE) 08/27/21 01:30 SARS-CoV-2 (PCR) Negative (NEGATIVE) 08/26/21 17:20 Influenza Type A (PCR) Negative (NEGATIVE) 08/26/21 17:20 Influenza Type B (PCR) Negative (NEGATIVE) 08/26/21 17:20 RSV (PCR) Negative (NEGATIVE) 08/26/21 17:20 Plan (1) Bacteremia due to Streptococcus pneumoniae: Status: Acute (2) Pneumonia: Status: Acute (3) Chest pain, rule out acute myocardial infarction: Status: Acute (4) CKD (chronic kidney disease) stage 4, GFR 15-29 ml/min: Status: Acute
--- NOTE | 2021-09-01 15:38 | RAD ---
PROCEDURE: Chest X-ray 1 View .HISTORY: PICC LINE PLACEMENT .TECHNIQUE: AP view .COMPARISON: 09/01/2021.TECHNICAL QUALITY: Satisfactory .FINDINGS:Right PICC line visualized just below the skin right arm region medially and probably in a superficial vein and should be removed and replaced. The tip is near the axilla in the arm.Unremarkable cardio mediastinal silhouette and normal central vascularity.Continued consolidation and pleural fluid left base and mild consolidation right upper lobe near the minor fissure. No pleural fluid on the right. No pneumothorax.IMPRESSION:1. Right PICC line tip in the upper arm medially probably in a superficial vein and should be removed and replaced.2. Unchanged bilateral pneumonia greatest on the left with pleural effusion left base.Electronically signed by: Johnny Thompson (Sep 01, 2021 15:37:47)
[2021-09-01] MEDS: VIBRAMYCIN PO SCH (21:18)
--- NOTE | 2021-09-02 02:18 | DR.OPNOTE ---
OP NOTE Pre-Op Diagnosis: pnuemonia, left pleural effusion, no IV access. Post-Op Diagnosis: same Type of Anesthesia: Local (1 % Xylocaine ) EBL: minimal Complications:: none Disposition/Condition: Pt. tolerated procedure without difficulty.
[2021-09-02 07:44] LABS: BASOPHILS # (AUTO) 0.1 X10^3/uL (0.0-0.1); BASOPHILS % (AUTO) 0.5 % (0.2-1.0); EOSINOPHILS % (AUTO) 0.3 % (0.9-2.9); HEMATOCRIT 31.3 % (42.0-54.0); HEMOGLOBIN 10.5 g/dL (13.5-18.0); LYMPHOCYTES # (AUTO) 0.9 X10^3/uL (1.3-2.9); LYMPHOCYTES % (AUTO) 6.6 % (21.0-51.0); MEAN CORPUSCULAR HEMOGLOBIN 30.7 pg (27.0-34.0); MEAN CORPUSCULAR HGB CONC 33.4 g/dL (33.0-35.0); MEAN CORPUSCULAR VOLUME 91.9 fL (80.0-100.0); MEAN PLATELET VOLUME 8.5 fL (7.4-11.0); MONOCYTES # (AUTO) 0.9 x10^3/uL (0.3-0.8); MONOCYTES % (AUTO) 6.7 % (0.0-13.0); NEUTROPHILS # (AUTO) 11.8 x10^3/uL (2.2-4.8); NEUTROPHILS % (AUTO) 85.9 % (42.0-75.0); RED BLOOD COUNT 3.41 X10^6/uL (4.7-6.0); RED CELL DISTRIBUTION WIDTH 15.3 % (11.6-16.5); WHITE BLOOD COUNT 13.7 X10^3/uL (3.6-10.0)
[2021-09-02 07:55] LABS: ALBUMIN 1.9 g/dL (3.4-5.0); CALCIUM 8.6 mg/dL (8.5-10.1); CARBON DIOXIDE 22.2 mmol/L (21-32); COR CA(FOR HYPOALB) 10.3 mg/dL (8.5-10.1); CREATININE 2.01 mg/dL (0.70-1.30)
[2021-09-02] MEDS: LOVENOX INJ 30 MG SYR SC SCH (08:06)
[2021-09-02] MEDS: CATAPRES TAB 0.1 MG PO SCH ×2 (08:24→20:49)
[2021-09-02] MEDS: NICOTINE PATCH TD SCH (08:25)
[2021-09-02] MEDS: COREG TAB 12.5 MG PO SCH ×2 (08:25→20:49)
[2021-09-02] MEDS: ROCEPHIN VIAL 1 GRAM 1 G in NS 100 ML IV 100 ML IV SCH (08:25)
[2021-09-02] MEDS: LASIX PO SCH (08:25)
[2021-09-02] MEDS: VIBRAMYCIN PO SCH ×2 (08:26→20:49)
[2021-09-02] MEDS: PROCARDIA XL PO SCH (08:26)
[2021-09-02] MEDS: NS 1,000 ML IV 1,000 ML IV SCH ×3 (08:35→18:15)
[2021-09-02] MEDS: PROVENTIL NEB TX 0.083% 2.5MG/ 3ML NEB SCH ×4 (09:10→20:36)
--- NOTE | 2021-09-02 09:24 | DR.OPNOTE ---
OP NOTE Pre-Op Diagnosis: pneumonia, left pleural effusion, lack of IV access Post-Op Diagnosis: same Procedure Date Date Of Procedure: 09/01/21 Procedure: PROCEDURE : placement of right brachial vein PICC line NARRATIVE: The patient was in the ICU and in the Supine position. The left arm was prepped and draped in sterile fashion. Ultrasound used to identify the left brachial artery and left brachial vein . The skin overlying the left brachial vein infiltrated with 1 % Xylocaine .Attempts are made to puncture the left brachial vein but aspiration of blood was not obtained. Therefore, I elected to place it on the right side. The right arm just above the elbow was prepped and draped in sterile fashion. The skin overlying the brachial vein was infiltrated with 1 % Xylocaine . Ultrasound used to guide puncture of the right brachial vein. Small guide wire placed without difficulty. Incision made over the guide wire with a # 11 knife blade and introducer sheath placed over the guide wire into the brachial vein. The catheter was threaded through the introducer sheath but would only go to 20 cm. It still had aspiration of blood and flushed well. I elected to leave it there. Sheath was removed .Catheter secured to the skin. Post procedure chest x-ray showed no pneumothorax with placement of the distal end in the proximal brachial vein before entering the axillary vein. Type of Anesthesia: Local (1 % Xylocaine ) Type of Fluids Used:: Normal Saline Total Amount of Fluid Infused:: 100 cc EBL: minimal Complications:: none Disposition/Condition: Pt. tolerated procedure without difficulty. Extubated in the OR and taken to PACU in stable condition.
--- NOTE | 2021-09-02 12:40 | RAD ---
HISTORYpost thorocentisisSTUDYCHEST x-ray, 1 VIEWCOMPARISONX-ray 09/01/2021FINDINGSModerate left pleural effusion is similar in size to prior study. No pneumothorax mediastinal shift is seen. Heart is probably normal in size. There is likely underlying COPD. Vague persistent density in the right midlung is seen.IMPRESSIONModerate left pleural effusion is similar to prior study. No pneumothorax is seen.Electronically signed by: Bruce Brothers (Sep 02, 2021 12:38:35)
--- NOTE | 2021-09-02 21:21 | PCM.PROG ---
Progress Note Progress Note for Day of Date of Exam: 09/02/21 Subjective Subjective: Pt is a 76 year old male past medical history of Hypertension, CABG, COPD, CKD admitted for pneumonia and strep pneu. bacteremia. This morning he is feeling better. No acute events overnight. Labs/imaging: Wbc 13.7, Hgb 10.5, Plt 275, Na 134, K 3.8, Creatinine 2.01, Glucose 131, Blood cultures positive strep pneumoniae x2, repeat blood cultures NGTD. CXR was obtained that revealed: . Pt is currently on IVF NS@KVO, Current antibiotics: Rocephin and Doxycycline, bronchodilators, home medications were resumed. Echo was obtained, see report, would benefit for cardiology follow up outpatient, however pt has been referred multiple times by pcp and has refused to see any specialist. Pt also is a smoker and reviewing CT chest noted chronic pleural effusion. General surgery-Dr Lowery was consulted, will do thoracentesis today for culture and cytology. Pt has PICC line placed, will arrange for home health and to complete 14 day IV antibiotic course of Rocephin. Otherwise, continue with current treatment plan. Closely monitor and follow up labs/imaging. Past Medical Family Social History Allergies: Allergies No Known Drug Allergies Allergy (Verified 09/13/19 13:55) Review of Systems ROS: No change since H&P Vital Signs and I&O's Vital Signs: Temperature 98.0 F Pulse Rate [Left Radial] 67 Pulse Rate 78 Respiratory Rate 20 Blood Pressure [Right Arm] 126/60 Blood Pressure 106/65 O2 Sat by Pulse Oximetry 98 Intake and Output: Intake & Output 08/30/21 08/31/21 09/01/21 09/02/21 23:59 23:59 23:59 23:59 Intake Total 1722 / 1722 1713 / 1713 930 / 930 660 / 660 Output Total 1575 / 1575 1999 / 1999 1650 / 1650 1200 / 1200 Balance 147 / 147 -287 / -287 -720 / -720 -540 / -540 Physical Exam Oriented: Normal Eyes: Normal Ear: Normal Nose: Normal Throat: Normal Respiratory: Diminished Cardiovascular: Normal : Normal Auscultation: Bowel Sounds: Normal Tenderness: Normal Skin: Normal Musculoskeletal: Normal Psychiatric: Normal Mood Description: Calm and Appropriate Affect: Normal Speech Pattern: Clear and Appropriate Laboratory and Diagnostics Result Diagrams: 09/02/21:30 09/02/21 07:30 Labs: 09/02/21 10:10 Thoracic Fluid Gram Stain - Final 08/29/21 08:53 Blood Blood Culture - Preliminary 08/29/21 08:30 Blood Blood Culture - Preliminary 08/26/21 20:18 Blood Blood Culture - Final Streptococcus Pneumoniae 08/26/21 19:55 Blood Blood Culture - Final Streptococcus Pneumoniae 08/27/21 08:43 Sputum - Expectorated Sputum Sputum Culture - Final 08/27/21 08:43 Sputum - Expectorated Sputum - Final Laboratory WBC 13.7 X10^3/uL (3.6-10.0) H 09/02/21 07:30 RBC 3.41 X10^6/uL (4.7-6.0) L 09/02/21 07:30 Hgb 10.5 g/dL (13.5-18.0) L 09/02/21 07:30 Hct 31.3 % (42.0-54.0) L 09/02/21 07:30 MCV 91.9 fL (80.0-100.0) 09/02/21 07:30 MCH 30.7 pg (27.0-34.0) 09/02/21 07:30 MCHC 33.4 g/dL (33.0-35.0) 09/02/21 07:30 RDW 15.3 % (11.6-16.5) 09/02/21 07:30 Plt Count 275 X10^3/uL (150.0-450.0) 09/02/21 07:30 Plt Count Comment Adequate (ADEQUATE) 08/27/21 04:37 MPV 8.5 fL (7.4-11.0) 09/02/21 07:30 Neut % (Auto) 85.9 % (42.0-75.0) H 09/02/21 07:30 Lymph % (Auto) 6.6 % (21.0-51.0) L 09/02/21 07:30 [place] % (Auto) 6.7 % (0.0-13.0) 09/02/21 07:30 Eos % (Auto) 0.3 % (0.9-2.9) L 09/02/21 07:30 Baso % (Auto) 0.5 % (0.2-1.0) 09/02/21 07:30 Neut # (Auto) 11.8 x10^3/uL (2.2-4.8) H 09/02/21 07:30 Lymph # (Auto) 0.9 X10^3/uL (1.3-2.9) L 09/02/21 07:30 [place] # (Auto) 0.9 x10^3/uL (0.3-0.8) H 09/02/21 07:30 Eos # (Auto) 0.0 x10^3/uL (0.0-0.2) 09/02/21 07:30 Baso # (Auto) 0.1 X10^3/uL (0.0-0.1) 09/02/21 07:30 Absolute Nucleated RBC 0.2 /100WBC 09/02/21 07:30 Total Counted 100 08/27/21 04:37 Neutrophils % (Manual) 89 % (39-76) H 08/27/21 04:37 Band Neutrophils % 6 % (0-10) 08/27/21 04:37 Lymphocytes % (Manual) 2 % (13-43) L 08/27/21 04:37 Monocytes % (Manual) 3 % (4-9) L 08/27/21 04:37 Plt Morphology Comment Normal (NORMAL) 08/27/21 04:37 RBC Morphology Normal (NORMAL) 08/27/21 04:37 PT 14.8 SECONDS (11.8-14.3) 08/27/21 04:37 INR Target Range - 08/27/21 04:37 INR 1.20 (0.8-1.3) 08/27/21 04:37 APTT 32.7 SECONDS (22.9-36.5) 08/27/21 04:37 PTT Comment - 08/27/21 04:37 D-Dimer 3.81 ug/ml (0.0-0.57) H* 08/26/21 16:55 Sodium 134 mmol/L (136-145) L 09/02/21 07:30 Corrected Sodium 135 mmol/L (136-145) L 09/02/21 07:30 Potassium 3.8 mmol/L (3.5-5.1) 09/02/21 07:30 Chloride 102 mmol/L (98-107) 09/02/21 07:30 Carbon Dioxide 22.2 mmol/L (21-32) 09/02/21 07:30 BUN 55 mg/dL (7-18) H 09/02/21 07:30 Creatinine 2.01 mg/dL (0.70-1.30) H 09/02/21 07:30 Est GFR (MDRD) Af Amer 42 (>60) L 09/02/21 07:30 Est GFR (MDRD) Non-Af 35 (>60) L 09/02/21 07:30 Glucose 131 mg/dL (65-99) H 09/02/21 07:30 Lactic Acid 1.0 mmol/L (0.4-2.0) 08/26/21 19:55 Calcium 8.6 mg/dL (8.5-10.1) 09/02/21 07:30 Corrected Calcium 10.3 mg/dL (8.5-10.1) H 09/02/21 07:30 Magnesium 2.0 mg/dL (1.7-2.9) 08/31/21 04:00 Total Bilirubin 0.40 mg/dL (0.2-1.0) 09/02/21 07:30 AST 18 Units/L (15-37) 09/02/21 07:30 ALT 23 Units/L (12-78) 09/02/21 07:30 Alkaline Phosphatase 114 Units/L (46-116) 09/02/21 07:30 Creatine Kinase 71 Units/L (39-308) 08/27/21 10:12 CK-MB (CK-2) 3.7 ng/mL (0-4.0) 08/27/21 10:12 CK/CKMB % Calc 5.2 % (<4) 08/27/21 10:12 Troponin I High Sens 54.0 ng/L (4.0-60.0) 08/27/21 10:12 Total Protein 6.0 g/dL (6.4-8.2) L 09/02/21 07:30 Albumin 1.9 g/dL (3.4-5.0) L 09/02/21 07:30 Globulin 4.1 g/dL (2.5-4.5) 09/02/21 07:30 Albumin/Globulin Ratio 0.5 Ratio (1.1-2.1) L 09/02/21 07:30 Specimen Type Clean catch urine 08/27/21 01:30 Urine Color Yellow (YELLOW) 08/27/21 01:30 Urine Appearance Clear (CLEAR) 08/27/21 01:30 Urine pH 5.0 (5.0 - 8.0) 08/27/21 01:30 Ur Specific [place] 1.015 (1.000-1.030) 08/27/21 01:30 Urine Protein Negative (NEGATIVE) 08/27/21 01:30 Urine Glucose (UA) Negative (NEGATIVE) 08/27/21 01:30 Urine Ketones Negative (NEGATIVE) 08/27/21 01:30 Urine Blood Negative (NEGATIVE) 08/27/21 01:30 Urine Nitrite Negative (NEGATIVE) 08/27/21 01:30 Urine Bilirubin Negative (NEGATIVE) 08/27/21 01:30 Urine Urobilinogen Normal (NORMAL) 08/27/21 01:30 Ur Leukocyte Esterase Negative (NEGATIVE) 08/27/21 01:30 Fluid pH 7.0 09/02/21 10:10 SARS-CoV-2 (PCR) Negative (NEGATIVE) 08/26/21 17:20 Influenza Type A (PCR) Negative (NEGATIVE) 08/26/21 17:20 Influenza Type B (PCR) Negative (NEGATIVE) 08/26/21 17:20 RSV (PCR) Negative (NEGATIVE) 08/26/21 17:20 Cytology Specimen To follow 09/02/21 10:10 Plan (1) Bacteremia due to Streptococcus pneumoniae: Status: Acute (2) Pneumonia: Status: Acute (3) Chest pain, rule out acute myocardial infarction: Status: Acute (4) CKD (chronic kidney disease) stage 4, GFR 15-29 ml/min: Status: Acute (5) Chronic pleural effusion: Status: Acute
[2021-09-03 05:18] LABS: BASOPHILS % (AUTO) 0.1 % (0.2-1.0); EOSINOPHILS % (AUTO) 0.3 % (0.9-2.9); HEMATOCRIT 25.3 % (42.0-54.0); LYMPHOCYTES # (AUTO) 1.2 X10^3/uL (1.3-2.9); LYMPHOCYTES % (AUTO) 8.5 % (21.0-51.0); MEAN CORPUSCULAR HEMOGLOBIN 30.8 pg (27.0-34.0); MEAN CORPUSCULAR HGB CONC 33.4 g/dL (33.0-35.0); MEAN CORPUSCULAR VOLUME 92.3 fL (80.0-100.0); MEAN PLATELET VOLUME 8.7 fL (7.4-11.0); MONOCYTES # (AUTO) 0.9 x10^3/uL (0.3-0.8); MONOCYTES % (AUTO) 6.6 % (0.0-13.0); NEUTROPHILS # (AUTO) 11.5 x10^3/uL (2.2-4.8); NEUTROPHILS % (AUTO) 84.5 % (42.0-75.0); RED BLOOD COUNT 2.74 X10^6/uL (4.7-6.0); RED CELL DISTRIBUTION WIDTH 14.7 % (11.6-16.5); WHITE BLOOD COUNT 13.7 X10^3/uL (3.6-10.0)
[2021-09-03 05:28] LABS: HEMOGLOBIN 8.4 g/dL (13.5-18.0)
[2021-09-03 05:30] LABS: ALBUMIN 1.8 g/dL (3.4-5.0); CALCIUM 8.2 mg/dL (8.5-10.1); CARBON DIOXIDE 23.3 mmol/L (21-32); CREATININE 1.94 mg/dL (0.70-1.30); TOTAL PROTEIN 5.5 g/dL (6.4-8.2)
[2021-09-03] MEDS: NS 1,000 ML IV 1,000 ML IV SCH ×2 (07:50→10:34)
[2021-09-03] MEDS: LASIX PO SCH (08:16)
[2021-09-03] MEDS: CATAPRES TAB 0.1 MG PO SCH (08:16)
[2021-09-03] MEDS: COREG TAB 12.5 MG PO SCH (08:16)
[2021-09-03] MEDS: ROCEPHIN VIAL 1 GRAM 1 G in NS 100 ML IV 100 ML IV SCH (08:17)
[2021-09-03] MEDS: PROCARDIA XL PO SCH (08:17)
[2021-09-03] MEDS: NICOTINE PATCH TD SCH (08:17)
[2021-09-03] MEDS: VIBRAMYCIN PO SCH (08:17)
[2021-09-03] MEDS: PROVENTIL NEB TX 0.083% 2.5MG/ 3ML NEB SCH (08:20)
[2021-09-03] MEDS: LOVENOX INJ 30 MG SYR SC SCH (08:28)
--- NOTE | 2021-09-03 08:49 | W.DIS.FURT ---
Summary of Discharge Discharge Summary of Date Date of Exam: 09/03/21 Admission Date Date of Admission: 08/26/21 Admission Diagnosis Patient Problems (Updated 09/02/21 @ 21:26 by Pramod Eisenberg) Pneumonia (Acute) J18.9 Acute renal failure (Acute) N17.9 Acute dehydration (Acute) E86.0 Chest pain (Acute) R07.9 Hospital Course: Pt is a 76 year old male past medical history of Hypertension, CABG, COPD, CKD admitted for pneumonia and strep pneu. bacteremia. His hospital/treatment course included: IVF NS@KVO, Antibiotics: Rocephin and Doxycycline, bronchodilators, and home medications were resumed. Echo was obtained, see report, will arrange outpatient referral to cardiology for significant aortic stenosis. Pt responded well to treatments, repeat blood cultures NGTD. During hospital course patient was noted to have chronic pleural effusion that was noted on CT chest. General surgery-Dr Lowery was consulted, thoracentesis performed and culture and cytology to be followed up outpatient. Pt has PICC line placed, home health arranged to complete 14 day IV antibiotic course of Rocephin. Blood pressure medications were prescribed. Pt instructed to follow up with pcp in 3-5 days and cardiology outpatient. Pt discharged in stable condition. Vital Signs: Vital Signs (72 hours) 08/31/21 09:00 08/31/21 09:00 08/31/21 09:30 Temperature Pulse Rate 66 Respiratory Rate 22 Blood Pressure 135/63 132/62 O2 Sat by Pulse Oximetry 94 L Oxygen Delivery Method Oxygen Flow Rate FIO2% 08/31/21 09:30 08/31/21 09:30 08/31/21 09:30 Temperature Pulse Rate 66 68 Respiratory Rate 22 Blood Pressure O2 Sat by Pulse Oximetry 97 93 L Oxygen Delivery Method Room Air Oxygen Flow Rate 2 FIO2% 28 08/31/21 10:00 08/31/21 10:00 08/31/21 10:30 Temperature Pulse Rate 63 Respiratory Rate 26 H Blood Pressure 117/59 114/55 O2 Sat by Pulse Oximetry 93 L Oxygen Delivery Method Oxygen Flow Rate FIO2% 08/31/21 10:30 08/31/21 11:00 08/31/21 11:01 Temperature Pulse Rate 60 60 Respiratory Rate 27 H 28 H Blood Pressure 116/64 O2 Sat by Pulse Oximetry 94 L 95 Oxygen Delivery Method Oxygen Flow Rate FIO2% 08/31/21 11:01 08/31/21 11:30 08/31/21 11:30 Temperature Pulse Rate 61 61 Respiratory Rate 26 H Blood Pressure 121/58 O2 Sat by Pulse Oximetry 94 L 96 Oxygen Delivery Method Oxygen Flow Rate FIO2% 08/31/21 12:00 08/31/21 12:00 08/31/21 12:30 Temperature 97.9 F Pulse Rate 61 Respiratory Rate 25 H Blood Pressure 118/59 147/67 O2 Sat by Pulse Oximetry 96 Oxygen Delivery Method Oxygen Flow Rate FIO2% 08/31/21 12:30 08/31/21 13:00 08/31/21 13:00 Temperature Pulse Rate 67 65 Respiratory Rate 23 20 Blood Pressure 145/65 O2 Sat by Pulse Oximetry 97 98 Oxygen Delivery Method Oxygen Flow Rate FIO2% 08/31/21 13:30 08/31/21 13:30 08/31/21 14:00 Temperature Pulse Rate 64 Respiratory Rate Blood Pressure 140/63 144/70 O2 Sat by Pulse Oximetry 100 Oxygen Delivery Method Oxygen Flow Rate FIO2% 08/31/21 14:00 08/31/21 14:30 08/31/21 14:30 Temperature Pulse Rate 67 62 Respiratory Rate 24 21 Blood Pressure 150/67 O2 Sat by Pulse Oximetry 98 100 Oxygen Delivery Method Oxygen Flow Rate FIO2% 08/31/21 15:00 08/31/21 15:00 08/31/21 15:30 Temperature Pulse Rate 63 Respiratory Rate 23 Blood Pressure 152/66 158/67 O2 Sat by Pulse Oximetry 95 Oxygen Delivery Method Oxygen Flow Rate FIO2% 08/31/21 15:30 08/31/21 16:00 08/31/21 16:00 Temperature Pulse Rate 64 63 Respiratory Rate 24 25 H Blood Pressure 155/70 O2 Sat by Pulse Oximetry 95 96 Oxygen Delivery Method Oxygen Flow Rate FIO2% 08/31/21 16:30 08/31/21 16:30 08/31/21 17:00 Temperature Pulse Rate 62 Respiratory Rate 23 Blood Pressure 145/63 146/67 O2 Sat by Pulse Oximetry 96 Oxygen Delivery Method Oxygen Flow Rate FIO2% 08/31/21 17:00 08/31/21 17:30 08/31/21 17:30 Temperature Pulse Rate 63 69 Respiratory Rate 24 26 H Blood Pressure 160/71 O2 Sat by Pulse Oximetry 95 94 L Oxygen Delivery Method Oxygen Flow Rate FIO2% 08/31/21 18:00 08/31/21 18:00 08/31/21 19:00 Temperature Pulse Rate 71 Respiratory Rate Blood Pressure 158/70 O2 Sat by Pulse Oximetry 100 Oxygen Delivery Method Room Air Oxygen Flow Rate FIO2% 08/31/21 19:00 08/31/21 20:00 08/31/21 21:00 Temperature 98.4 F Pulse Rate 69 69 70 Respiratory Rate 25 H 23 23 Blood Pressure 135/60 157/67 156/64 O2 Sat by Pulse Oximetry 96 96 94 L Oxygen Delivery Method Oxygen Flow Rate FIO2% 08/31/21 21:00 08/31/21 21:00 08/31/21 22:00 Temperature Pulse Rate 70 68 Respiratory Rate 25 H Blood Pressure 144/62 O2 Sat by Pulse Oximetry 94 L 94 L Oxygen Delivery Method Nasal Cannula Oxygen Flow Rate 2 FIO2% 09/01/21 00:20 08/31/21 23:00 09/01/21 00:00 Temperature 98.2 F Pulse Rate 67 67 Respiratory Rate 25 H 21 Blood Pressure 131/60 130/59 O2 Sat by Pulse Oximetry 95 93 L Oxygen Delivery Method Nasal Cannula Oxygen Flow Rate FIO2% 09/01/21 01:00 09/01/21 02:00 09/01/21 03:00 Temperature Pulse Rate 64 62 65 Respiratory Rate 20 28 H 23 Blood Pressure 131/58 132/63 128/59 O2 Sat by Pulse Oximetry 94 L 93 L 93 L Oxygen Delivery Method Oxygen Flow Rate FIO2% 09/01/21 04:00 09/01/21 05:00 09/01/21 06:00 Temperature 98.4 F Pulse Rate 61 64 72 Respiratory Rate 23 22 26 H Blood Pressure 148/65 131/60 121/73 O2 Sat by Pulse Oximetry 95 92 L 92 L Oxygen Delivery Method Oxygen Flow Rate FIO2% 08/31/21 20:00 08/31/21 20:30 08/31/21 21:00 Temperature Pulse Rate Respiratory Rate Blood Pressure 157/67 153/69 156/64 O2 Sat by Pulse Oximetry Oxygen Delivery Method Oxygen Flow Rate FIO2% 08/31/21 21:30 08/31/21 22:00 08/31/21 22:30 Temperature Pulse Rate Respiratory Rate Blood Pressure 153/67 144/62 131/61 O2 Sat by Pulse Oximetry Oxygen Delivery Method Oxygen Flow Rate FIO2% 08/31/21 22:30 08/31/21 23:00 08/31/21 23:30 Temperature Pulse Rate Respiratory Rate Blood Pressure 131/61 131/60 141/63 O2 Sat by Pulse Oximetry Oxygen Delivery Method Oxygen Flow Rate FIO2% 09/01/21 00:00 09/01/21 00:31 09/01/21 01:00 Temperature Pulse Rate Respiratory Rate Blood Pressure 130/59 131/58 122/58 O2 Sat by Pulse Oximetry Oxygen Delivery Method Oxygen Flow Rate FIO2% 09/01/21 01:30 09/01/21 02:00 09/01/21 02:30 Temperature Pulse Rate Respiratory Rate Blood Pressure 119/56 132/63 130/61 O2 Sat by Pulse Oximetry Oxygen Delivery Method Oxygen Flow Rate FIO2% 09/01/21 03:00 09/01/21 03:30 09/01/21 04:00 Temperature Pulse Rate Respiratory Rate Blood Pressure 128/59 146/64 148/65 O2 Sat by Pulse Oximetry Oxygen Delivery Method Oxygen Flow Rate FIO2% 09/01/21 04:30 09/01/21 05:00 09/01/21 05:31 Temperature Pulse Rate Respiratory Rate Blood Pressure 126/58 131/60 144/66 O2 Sat by Pulse Oximetry Oxygen Delivery Method Oxygen Flow Rate FIO2% 09/01/21 06:00 09/01/21 06:30 09/01/21 07:00 Temperature Pulse Rate Respiratory Rate Blood Pressure 121/73 134/63 145/64 O2 Sat by Pulse Oximetry Oxygen Delivery Method Oxygen Flow Rate FIO2% 09/01/21 07:00 09/01/21 07:30 09/01/21 07:30 Temperature 97.9 F Pulse Rate 62 71 Respiratory Rate 26 H 30 H Blood Pressure 171/74 O2 Sat by Pulse Oximetry 93 L 95 Oxygen Delivery Method Oxygen Flow Rate FIO2% 09/01/21 07:00 09/01/21 08:00 09/01/21 08:01 Temperature Pulse Rate 67 67 Respiratory Rate 23 23 Blood Pressure O2 Sat by Pulse Oximetry 95 94 L Oxygen Delivery Method Room Air Oxygen Flow Rate FIO2% 09/01/21 08:01 09/01/21 08:30 09/01/21 08:30 Temperature Pulse Rate 69 Respiratory Rate 28 H Blood Pressure 133/60 145/66 O2 Sat by Pulse Oximetry 93 L Oxygen Delivery Method Oxygen Flow Rate FIO2% 09/01/21 09:00 09/01/21 09:01 09/01/21 09:01 Temperature Pulse Rate 64 64 Respiratory Rate 27 H 23 Blood Pressure 130/59 O2 Sat by Pulse Oximetry 94 L 94 L Oxygen Delivery Method Oxygen Flow Rate FIO2% 09/01/21 09:30 09/01/21 09:30 09/01/21 10:00 Temperature Pulse Rate 62 Respiratory Rate 23 Blood Pressure 128/59 124/58 O2 Sat by Pulse Oximetry 100 Oxygen Delivery Method Oxygen Flow Rate FIO2% 09/01/21 10:00 09/01/21 09:45 09/01/21 09:45 Temperature Pulse Rate 59 L 60 Respiratory Rate 24 Blood Pressure O2 Sat by Pulse Oximetry 95 94 L Oxygen Delivery Method Nasal Cannula Oxygen Flow Rate 2 FIO2% 28 09/01/21 10:30 09/01/21 10:30 09/01/21 11:00 Temperature Pulse Rate 57 L Respiratory Rate 24 Blood Pressure 129/61 123/60 O2 Sat by Pulse Oximetry 95 Oxygen Delivery Method Oxygen Flow Rate FIO2% 09/01/21 11:00 09/01/21 11:30 09/01/21 11:30 Temperature Pulse Rate 63 59 L Respiratory Rate 23 24 Blood Pressure 133/63 O2 Sat by Pulse Oximetry 95 96 Oxygen Delivery Method Oxygen Flow Rate FIO2% 09/01/21 12:00 09/01/21 12:00 09/01/21 12:31 Temperature 98.0 F Pulse Rate 60 62 Respiratory Rate 22 22 Blood Pressure 128/60 O2 Sat by Pulse Oximetry 99 98 Oxygen Delivery Method Oxygen Flow Rate FIO2% 09/01/21 12:31 09/01/21 13:00 09/01/21 13:00 Temperature Pulse Rate 62 Respiratory Rate 21 Blood Pressure 152/68 144/65 O2 Sat by Pulse Oximetry 94 L Oxygen Delivery Method Oxygen Flow Rate FIO2% 09/01/21 13:30 09/01/21 13:30 09/01/21 14:00 Temperature Pulse Rate 62 64 Respiratory Rate 23 Blood Pressure 133/62 O2 Sat by Pulse Oximetry 96 98 Oxygen Delivery Method Oxygen Flow Rate FIO2% 09/01/21 15:00 09/01/21 15:14 09/01/21 15:22 Temperature 98.3 F Pulse Rate 63 Respiratory Rate Blood Pressure 167/71 O2 Sat by Pulse Oximetry 97 97 Oxygen Delivery Method Oxygen Flow Rate FIO2% 09/01/21 15:30 09/01/21 15:30 09/01/21 16:00 Temperature Pulse Rate 69 Respiratory Rate 24 Blood Pressure 156/72 161/70 O2 Sat by Pulse Oximetry Oxygen Delivery Method Oxygen Flow Rate FIO2% 09/01/21 16:00 09/01/21 16:30 09/01/21 16:30 Temperature Pulse Rate 63 65 Respiratory Rate 19 27 H Blood Pressure 161/72 O2 Sat by Pulse Oximetry Oxygen Delivery Method Oxygen Flow Rate FIO2% 09/01/21 17:00 09/01/21 17:00 09/01/21 17:30 Temperature Pulse Rate 63 Respiratory Rate 24 Blood Pressure 161/70 159/72 O2 Sat by Pulse Oximetry Oxygen Delivery Method Oxygen Flow Rate FIO2% 09/01/21 17:30 09/01/21 18:00 09/01/21 18:00 Temperature Pulse Rate 64 65 Respiratory Rate 20 26 H Blood Pressure 150/67 O2 Sat by Pulse Oximetry 100 100 Oxygen Delivery Method Oxygen Flow Rate FIO2% 09/01/21 19:00 09/01/21 19:00 09/01/21 20:00 Temperature 98.3 F Pulse Rate 62 74 Respiratory Rate 34 H 32 H Blood Pressure 137/64 149/67 O2 Sat by Pulse Oximetry 91 L 95 Oxygen Delivery Method Room Air Oxygen Flow Rate FIO2% 09/01/21 20:45 09/01/21 20:45 09/01/21 21:00 Temperature Pulse Rate 70 66 Respiratory Rate 20 Blood Pressure 144/64 O2 Sat by Pulse Oximetry 95 96 Oxygen Delivery Method Nasal Cannula Oxygen Flow Rate 2 FIO2% 28 09/01/21 22:00 09/01/21 23:00 09/02/21 00:00 Temperature 98.2 F Pulse Rate 63 63 61 Respiratory Rate 23 20 23 Blood Pressure 132/60 123/58 135/63 O2 Sat by Pulse Oximetry 94 L 97 95 Oxygen Delivery Method Oxygen Flow Rate FIO2% 09/02/21 01:00 09/02/21 02:00 09/02/21 03:00 Temperature Pulse Rate 60 65 63 Respiratory Rate 20 28 H 24 Blood Pressure 138/61 134/63 139/65 O2 Sat by Pulse Oximetry 95 96 97 Oxygen Delivery Method Oxygen Flow Rate FIO2% 09/02/21 04:00 09/02/21 05:00 09/02/21 06:00 Temperature 98.8 F Pulse Rate 62 63 60 Respiratory Rate 24 22 24 Blood Pressure 119/56 123/73 137/62 O2 Sat by Pulse Oximetry 96 100 98 Oxygen Delivery Method Oxygen Flow Rate FIO2% 09/02/21 07:00 09/01/21 19:30 09/01/21 19:30 Temperature Pulse Rate 68 Respiratory Rate 22 Blood Pressure 152/68 O2 Sat by Pulse Oximetry 96 Oxygen Delivery Method Room Air Oxygen Flow Rate FIO2% 09/01/21 20:00 09/01/21 20:02 09/01/21 20:02 Temperature Pulse Rate 65 74 Respiratory Rate 21 32 H Blood Pressure 149/67 O2 Sat by Pulse Oximetry 99 95 Oxygen Delivery Method Oxygen Flow Rate FIO2% 09/01/21 20:30 09/01/21 20:30 09/01/21 21:00 Temperature Pulse Rate 68 Respiratory Rate 22 Blood Pressure 133/60 144/64 O2 Sat by Pulse Oximetry 100 Oxygen Delivery Method Oxygen Flow Rate FIO2% 09/01/21 21:00 09/01/21 21:30 09/01/21 21:30 Temperature Pulse Rate 66 67 Respiratory Rate 20 24 Blood Pressure 144/65 O2 Sat by Pulse Oximetry 96 97 Oxygen Delivery Method Oxygen Flow Rate FIO2% 09/01/21 22:00 09/01/21 22:00 09/01/21 22:30 Temperature Pulse Rate 63 62 Respiratory Rate 23 22 Blood Pressure 132/60 O2 Sat by Pulse Oximetry 94 L 96 Oxygen Delivery Method Oxygen Flow Rate FIO2% 09/01/21 22:30 09/01/21 23:00 09/01/21 23:00 Temperature Pulse Rate 63 Respiratory Rate 20 Blood Pressure 122/57 123/58 O2 Sat by Pulse Oximetry 97 Oxygen Delivery Method Oxygen Flow Rate FIO2% 09/01/21 23:30 09/01/21 23:30 09/02/21 00:00 Temperature Pulse Rate 62 Respiratory Rate 19 Blood Pressure 128/60 135/63 O2 Sat by Pulse Oximetry 97 Oxygen Delivery Method Oxygen Flow Rate FIO2% 09/02/21 00:00 09/02/21 00:30 09/02/21 00:30 Temperature Pulse Rate 61 69 Respiratory Rate 23 23 Blood Pressure 123/55 O2 Sat by Pulse Oximetry 95 97 Oxygen Delivery Method Oxygen Flow Rate FIO2% 09/02/21 01:00 09/02/21 01:00 09/02/21 01:30 Temperature Pulse Rate 60 Respiratory Rate 21 Blood Pressure 138/61 126/58 O2 Sat by Pulse Oximetry 95 Oxygen Delivery Method Oxygen Flow Rate FIO2% 09/02/21 01:30 09/02/21 02:00 09/02/21 02:00 Temperature Pulse Rate 60 65 Respiratory Rate 21 28 H Blood Pressure 134/63 O2 Sat by Pulse Oximetry 96 96 Oxygen Delivery Method Oxygen Flow Rate FIO2% 09/02/21 02:30 09/02/21 02:30 09/02/21 03:00 Temperature Pulse Rate 62 Respiratory Rate 21 Blood Pressure 136/60 139/65 O2 Sat by Pulse Oximetry 96 Oxygen Delivery Method Oxygen Flow Rate FIO2% 09/02/21 03:00 09/02/21 03:36 09/02/21 03:36 Temperature Pulse Rate 63 66 Respiratory Rate 24 20 Blood Pressure 125/92 O2 Sat by Pulse Oximetry 97 96 Oxygen Delivery Method Oxygen Flow Rate FIO2% 09/02/21 04:00 09/02/21 04:00 09/02/21 04:30 Temperature Pulse Rate 62 63 Respiratory Rate 24 19 Blood Pressure 119/56 O2 Sat by Pulse Oximetry 96 96 Oxygen Delivery Method Oxygen Flow Rate FIO2% 09/02/21 04:30 09/02/21 05:00 09/02/21 05:00 Temperature Pulse Rate 74 Respiratory Rate 35 H Blood Pressure 122/60 123/73 O2 Sat by Pulse Oximetry 97 Oxygen Delivery Method Oxygen Flow Rate FIO2% 09/02/21 05:30 09/02/21 05:30 09/02/21 06:00 Temperature Pulse Rate 61 Respiratory Rate 16 Blood Pressure 131/61 137/62 O2 Sat by Pulse Oximetry 100 Oxygen Delivery Method Oxygen Flow Rate FIO2% 09/02/21 06:00 09/02/21 06:30 09/02/21 06:30 Temperature Pulse Rate 59 L 60 Respiratory Rate 21 22 Blood Pressure 136/64 O2 Sat by Pulse Oximetry 97 98 Oxygen Delivery Method Oxygen Flow Rate FIO2% 09/02/21 07:00 09/02/21 07:30 09/02/21 07:30 Temperature 98.5 F Pulse Rate 64 65 Respiratory Rate 21 22 Blood Pressure 137/65 O2 Sat by Pulse Oximetry 97 99 Oxygen Delivery Method Oxygen Flow Rate FIO2% 09/02/21 08:00 09/02/21 08:00 09/02/21 08:30 Temperature Pulse Rate 66 65 Respiratory Rate 17 22 Blood Pressure 134/65 O2 Sat by Pulse Oximetry 97 97 Oxygen Delivery Method Oxygen Flow Rate FIO2% 09/02/21 08:30 09/02/21 09:00 09/02/21 09:00 Temperature Pulse Rate 63 Respiratory Rate 21 Blood Pressure 150/68 115/58 O2 Sat by Pulse Oximetry 97 Oxygen Delivery Method Oxygen Flow Rate FIO2% 09/02/21 09:30 09/02/21 09:30 09/02/21 10:00 Temperature Pulse Rate 62 Respiratory Rate 23 Blood Pressure 116/58 110/56 O2 Sat by Pulse Oximetry 99 Oxygen Delivery Method Oxygen Flow Rate FIO2% 09/02/21 10:00 09/02/21 10:30 09/02/21 10:30 Temperature Pulse Rate 67 62 Respiratory Rate 40 H 21 Blood Pressure 109/55 O2 Sat by Pulse Oximetry 100 100 Oxygen Delivery Method Oxygen Flow Rate FIO2% 09/02/21 11:00 09/02/21 11:00 09/02/21 11:30 Temperature 97.7 F Pulse Rate 63 70 Respiratory Rate 20 20 Blood Pressure 118/59 O2 Sat by Pulse Oximetry 100 100 Oxygen Delivery Method Oxygen Flow Rate FIO2% 09/02/21 11:30 09/02/21 12:00 09/02/21 12:00 Temperature Pulse Rate 63 Respiratory Rate 42 H Blood Pressure 102/54 105/57 O2 Sat by Pulse Oximetry 100 Oxygen Delivery Method Oxygen Flow Rate FIO2% 09/02/21 12:30 09/02/21 12:30 09/02/21 13:00 Temperature Pulse Rate 63 Respiratory Rate 26 H Blood Pressure 116/58 109/59 O2 Sat by Pulse Oximetry 100 Oxygen Delivery Method Oxygen Flow Rate FIO2% 09/02/21 13:00 09/02/21 09:10 09/02/21 09:10 Temperature Pulse Rate 62 65 Respiratory Rate 21 Blood Pressure O2 Sat by Pulse Oximetry 100 97 Oxygen Delivery Method Nasal Cannula Oxygen Flow Rate 2 FIO2% 27 09/02/21 13:30 09/02/21 13:30 09/02/21 14:00 Temperature Pulse Rate 62 Respiratory Rate 16 Blood Pressure 125/59 124/60 O2 Sat by Pulse Oximetry 100 Oxygen Delivery Method Oxygen Flow Rate FIO2% 09/02/21 14:00 09/02/21 15:00 09/02/21 14:30 Temperature 98.2 F Pulse Rate 65 64 66 Respiratory Rate 22 20 19 Blood Pressure 122/58 O2 Sat by Pulse Oximetry 100 100 100 Oxygen Delivery Method Oxygen Flow Rate FIO2% 09/02/21 14:30 09/02/21 15:00 09/02/21 15:00 Temperature Pulse Rate 71 Respiratory Rate 26 H Blood Pressure 118/58 108/59 O2 Sat by Pulse Oximetry 97 Oxygen Delivery Method Oxygen Flow Rate FIO2% 09/02/21 16:00 09/02/21 16:00 09/02/21 16:30 Temperature Pulse Rate 65 65 Respiratory Rate 21 20 Blood Pressure 113/58 O2 Sat by Pulse Oximetry 93 L Oxygen Delivery Method Oxygen Flow Rate FIO2% 09/02/21 16:30 09/02/21 17:00 09/02/21 17:00 Temperature 97.9 F Pulse Rate 69 Respiratory Rate 28 H Blood Pressure 106/57 109/56 O2 Sat by Pulse Oximetry Oxygen Delivery Method Oxygen Flow Rate FIO2% 09/02/21 17:30 09/02/21 17:30 09/02/21 18:00 Temperature Pulse Rate 67 Respiratory Rate 26 H Blood Pressure 118/58 120/60 O2 Sat by Pulse Oximetry 98 Oxygen Delivery Method Oxygen Flow Rate FIO2% 09/02/21 18:00 09/02/21 19:00 09/02/21 19:00 Temperature Pulse Rate 71 106 H Respiratory Rate 20 19 Blood Pressure 111/69 O2 Sat by Pulse Oximetry 97 95 Oxygen Delivery Method Room Air Oxygen Flow Rate FIO2% 09/02/21 20:00 09/02/21 20:36 09/02/21 20:36 Temperature 98.0 F Pulse Rate 78 75 Respiratory Rate 20 Blood Pressure 106/65 O2 Sat by Pulse Oximetry 98 97 Oxygen Delivery Method Nasal Cannula Oxygen Flow Rate 2 FIO2% 27 09/02/21 21:00 09/02/21 22:00 09/02/21 23:00 Temperature Pulse Rate 70 67 68 Respiratory Rate 20 30 H 20 Blood Pressure 114/62 106/58 110/57 O2 Sat by Pulse Oximetry 100 97 96 Oxygen Delivery Method Oxygen Flow Rate FIO2% 09/03/21 00:00 09/03/21 01:00 09/03/21 02:00 Temperature Pulse Rate 66 65 72 Respiratory Rate 23 19 20 Blood Pressure 120/57 117/56 126/61 O2 Sat by Pulse Oximetry 96 96 96 Oxygen Delivery Method Oxygen Flow Rate FIO2% 09/03/21 03:00 09/03/21 04:00 09/03/21 05:00 Temperature 98.5 F Pulse Rate 62 64 66 Respiratory Rate 21 26 H 24 Blood Pressure 112/57 119/58 135/62 O2 Sat by Pulse Oximetry 96 95 100 Oxygen Delivery Method Oxygen Flow Rate FIO2% 09/03/21 06:00 09/03/21 07:00 09/02/21 18:30 Temperature Pulse Rate 64 Respiratory Rate 15 Blood Pressure 126/62 126/58 O2 Sat by Pulse Oximetry 100 Oxygen Delivery Method Room Air Oxygen Flow Rate FIO2% 09/02/21 19:00 09/02/21 19:00 09/02/21 19:30 Temperature Pulse Rate 110 H Respiratory Rate 19 Blood Pressure 111/69 110/52 O2 Sat by Pulse Oximetry 95 Oxygen Delivery Method Oxygen Flow Rate FIO2% 09/02/21 19:30 09/02/21 20:00 09/02/21 20:00 Temperature Pulse Rate 83 78 Respiratory Rate 24 20 Blood Pressure 106/65 O2 Sat by Pulse Oximetry 88 L 98 Oxygen Delivery Method Oxygen Flow Rate FIO2% 09/02/21 20:30 09/02/21 20:30 09/02/21 21:00 Temperature Pulse Rate 74 Respiratory Rate 20 Blood Pressure 117/65 114/62 O2 Sat by Pulse Oximetry 96 Oxygen Delivery Method Oxygen Flow Rate FIO2% 09/02/21 21:00 09/02/21 21:30 09/02/21 21:30 Temperature Pulse Rate 70 67 Respiratory Rate 20 24 Blood Pressure 113/57 O2 Sat by Pulse Oximetry 100 97 Oxygen Delivery Method Oxygen Flow Rate FIO2% 09/02/21 22:00 09/02/21 22:00 09/02/21 22:30 Temperature Pulse Rate 67 Respiratory Rate 30 H Blood Pressure 106/58 103/55 O2 Sat by Pulse Oximetry 97 Oxygen Delivery Method Oxygen Flow Rate FIO2% 09/02/21 22:30 09/02/21 23:00 09/02/21 23:00 Temperature Pulse Rate 69 68 Respiratory Rate 23 20 Blood Pressure 110/57 O2 Sat by Pulse Oximetry 98 96 Oxygen Delivery Method Oxygen Flow Rate FIO2% 09/02/21 23:30 09/02/21 23:30 09/03/21 00:00 Temperature Pulse Rate 66 Respiratory Rate 16 Blood Pressure 110/58 120/57 O2 Sat by Pulse Oximetry 97 Oxygen Delivery Method Oxygen Flow Rate FIO2% 09/03/21 00:00 09/03/21 00:30 09/03/21 00:30 Temperature Pulse Rate 66 65 Respiratory Rate 23 21 Blood Pressure 122/58 O2 Sat by Pulse Oximetry 96 93 L Oxygen Delivery Method Oxygen Flow Rate FIO2% 09/03/21 01:00 09/03/21 01:00 09/03/21 01:30 Temperature Pulse Rate 65 66 Respiratory Rate 19 21 Blood Pressure 117/56 O2 Sat by Pulse Oximetry 96 96 Oxygen Delivery Method Oxygen Flow Rate FIO2% 09/03/21 01:30 09/03/21 02:00 09/03/21 02:00 Temperature Pulse Rate 72 Respiratory Rate 20 Blood Pressure 111/57 126/61 O2 Sat by Pulse Oximetry 98 Oxygen Delivery Method Oxygen Flow Rate FIO2% 09/03/21 02:30 09/03/21 02:30 09/03/21 03:00 Temperature Pulse Rate 65 Respiratory Rate 18 Blood Pressure 114/56 112/57 O2 Sat by Pulse Oximetry 96 Oxygen Delivery Method Oxygen Flow Rate FIO2% 09/03/21 03:00 09/03/21 03:30 09/03/21 03:30 Temperature Pulse Rate 62 62 Respiratory Rate 21 27 H Blood Pressure 117/59 O2 Sat by Pulse Oximetry 94 L Oxygen Delivery Method Oxygen Flow Rate FIO2% 09/03/21 04:00 09/03/21 04:00 09/03/21 04:30 Temperature Pulse Rate 64 Respiratory Rate 26 H Blood Pressure 119/58 139/65 O2 Sat by Pulse Oximetry 95 Oxygen Delivery Method Oxygen Flow Rate FIO2% 09/03/21 04:30 09/03/21 04:30 09/03/21 05:00 Temperature Pulse Rate 66 Respiratory Rate 21 Blood Pressure 139/65 118/59 O2 Sat by Pulse Oximetry 95 Oxygen Delivery Method Oxygen Flow Rate FIO2% 09/03/21 05:00 09/03/21 05:41 09/03/21 05:41 Temperature Pulse Rate 64 63 Respiratory Rate 18 23 Blood Pressure 135/62 O2 Sat by Pulse Oximetry 97 Oxygen Delivery Method Oxygen Flow Rate FIO2% 09/03/21 06:00 09/03/21 06:00 09/03/21 07:00 Temperature 98.3 F Pulse Rate 65 Respiratory Rate 18 Blood Pressure 126/62 129/60 O2 Sat by Pulse Oximetry 95 Oxygen Delivery Method Oxygen Flow Rate FIO2% 09/03/21 07:00 09/03/21 08:00 09/03/21 08:00 Temperature Pulse Rate 64 61 Respiratory Rate 22 24 Blood Pressure 138/63 O2 Sat by Pulse Oximetry 100 100 Oxygen Delivery Method Oxygen Flow Rate FIO2% 09/03/21 08:20 09/03/21 08:20 Temperature Pulse Rate Respiratory Rate Blood Pressure O2 Sat by Pulse Oximetry 96 Oxygen Delivery Method Room Air Oxygen Flow Rate FIO2% Labs: Laboratory Last Values WBC 13.7 X10^3/uL (3.6-10.0) H 09/03/21 04:35 RBC 2.74 X10^6/uL (4.7-6.0) L 09/03/21 04:35 Hgb 8.4 g/dL (13.5-18.0) L D 09/03/21 04:35 Hct 25.3 % (42.0-54.0) L 09/03/21 04:35 MCV 92.3 fL (80.0-100.0) 09/03/21 04:35 MCH 30.8 pg (27.0-34.0) 09/03/21 04:35 MCHC 33.4 g/dL (33.0-35.0) 09/03/21 04:35 RDW 14.7 % (11.6-16.5) 09/03/21 04:35 Plt Count 273 X10^3/uL (150.0-450.0) 09/03/21 04:35 Plt Count Comment Adequate (ADEQUATE) 08/27/21 04:37 MPV 8.7 fL (7.4-11.0) 09/03/21 04:35 Neut % (Auto) 84.5 % (42.0-75.0) H 09/03/21 04:35 Lymph % (Auto) 8.5 % (21.0-51.0) L 09/03/21 04:35 [place] % (Auto) 6.6 % (0.0-13.0) 09/03/21 04:35 Eos % (Auto) 0.3 % (0.9-2.9) L 09/03/21 04:35 Baso % (Auto) 0.1 % (0.2-1.0) L 09/03/21 04:35 Neut # (Auto) 11.5 x10^3/uL (2.2-4.8) H 09/03/21 04:35 Lymph # (Auto) 1.2 X10^3/uL (1.3-2.9) L 09/03/21 04:35 [place] # (Auto) 0.9 x10^3/uL (0.3-0.8) H 09/03/21 04:35 Eos # (Auto) 0.0 x10^3/uL (0.0-0.2) 09/03/21 04:35 Baso # (Auto) 0.0 X10^3/uL (0.0-0.1) 09/03/21 04:35 Absolute Nucleated RBC 0.1 /100WBC 09/03/21 04:35 Total Counted 100 08/27/21 04:37 Neutrophils % (Manual) 89 % (39-76) H 08/27/21 04:37 Band Neutrophils % 6 % (0-10) 08/27/21 04:37 Lymphocytes % (Manual) 2 % (13-43) L 08/27/21 04:37 Monocytes % (Manual) 3 % (4-9) L 08/27/21 04:37 Plt Morphology Comment Normal (NORMAL) 08/27/21 04:37 RBC Morphology Normal (NORMAL) 08/27/21 04:37 PT 14.8 SECONDS (11.8-14.3) 08/27/21 04:37 INR Target Range - 08/27/21 04:37 INR 1.20 (0.8-1.3) 08/27/21 04:37 APTT 32.7 SECONDS (22.9-36.5) 08/27/21 04:37 PTT Comment - 08/27/21 04:37 D-Dimer 3.81 ug/ml (0.0-0.57) H* 08/26/21 16:55 Sodium 134 mmol/L (136-145) L 09/03/21 04:35 Corrected Sodium 135 mmol/L (136-145) L 09/03/21 04:35 Potassium 3.6 mmol/L (3.5-5.1) 09/03/21 04:35 Chloride 101 mmol/L (98-107) 09/03/21 04:35 Carbon Dioxide 23.3 mmol/L (21-32) 09/03/21 04:35 BUN 59 mg/dL (7-18) H 09/03/21 04:35 Creatinine 1.94 mg/dL (0.70-1.30) H 09/03/21 04:35 Est GFR (MDRD) Af Amer 44 (>60) L 09/03/21 04:35 Est GFR (MDRD) Non-Af 36 (>60) L 09/03/21 04:35 Glucose 123 mg/dL (65-99) H 09/03/21 04:35 Lactic Acid 1.0 mmol/L (0.4-2.0) 08/26/21 19:55 Calcium 8.2 mg/dL (8.5-10.1) L 09/03/21 04:35 Corrected Calcium 10.0 mg/dL (8.5-10.1) 09/03/21 04:35 Magnesium 2.0 mg/dL (1.7-2.9) 08/31/21 04:00 Total Bilirubin 0.30 mg/dL (0.2-1.0) 09/03/21 04:35 AST 19 Units/L (15-37) 09/03/21 04:35 ALT 17 Units/L (12-78) 09/03/21 04:35 Alkaline Phosphatase 102 Units/L (46-116) 09/03/21 04:35 Creatine Kinase 71 Units/L (39-308) 08/27/21 10:12 CK-MB (CK-2) 3.7 ng/mL (0-4.0) 08/27/21 10:12 CK/CKMB % Calc 5.2 % (<4) 08/27/21 10:12 Troponin I High Sens 54.0 ng/L (4.0-60.0) 08/27/21 10:12 Total Protein 5.5 g/dL (6.4-8.2) L 09/03/21 04:35 Albumin 1.8 g/dL (3.4-5.0) L 09/03/21 04:35 Globulin 3.7 g/dL (2.5-4.5) 09/03/21 04:35 Albumin/Globulin Ratio 0.5 Ratio (1.1-2.1) L 09/03/21 04:35 Specimen Type Clean catch urine 08/27/21 01:30 Urine Color Yellow (YELLOW) 08/27/21 01:30 Urine Appearance Clear (CLEAR) 08/27/21 01:30 Urine pH 5.0 (5.0 - 8.0) 08/27/21 01:30 Ur Specific [place] 1.015 (1.000-1.030) 08/27/21 01:30 Urine Protein Negative (NEGATIVE) 08/27/21 01:30 Urine Glucose (UA) Negative (NEGATIVE) 08/27/21 01:30 Urine Ketones Negative (NEGATIVE) 08/27/21 01:30 Urine Blood Negative (NEGATIVE) 08/27/21 01:30 Urine Nitrite Negative (NEGATIVE) 08/27/21 01:30 Urine Bilirubin Negative (NEGATIVE) 08/27/21 01:30 Urine Urobilinogen Normal (NORMAL) 08/27/21 01:30 Ur Leukocyte Esterase Negative (NEGATIVE) 08/27/21 01:30 Fluid pH 7.0 09/02/21 10:10 SARS-CoV-2 (PCR) Negative (NEGATIVE) 08/26/21 17:20 Influenza Type A (PCR) Negative (NEGATIVE) 08/26/21 17:20 Influenza Type B (PCR) Negative (NEGATIVE) 08/26/21 17:20 RSV (PCR) Negative (NEGATIVE) 08/26/21 17:20 Cytology Specimen To follow 09/02/21 10:10 Reason For Visit: PNEUMONIA, RENAL FAILURE, DEHYDRATION, CHEST PAIN Discharge Date Discharge Date: 09/03/21 Discharge Diagnosis All Active Problems (Updated 09/02/21 @ 21:26 by Pramod Eisenberg) Chronic pleural effusion (Acute) Bacteremia due to Streptococcus pneumoniae (Acute) Chest pain, rule out acute myocardial infarction (Acute) Congestive heart failure (CHF) (Acute) Pleural effusion (Acute) Hypertension, uncontrolled (Acute) CAD (coronary artery disease) (Acute) CKD (chronic kidney disease) stage 4, GFR 15-29 ml/min (Acute) Anemia in chronic kidney disease (CKD) (Acute) Acute chest pain (Acute) Abnormal ECG (Acute) Pneumonia (Acute) Acute renal failure (Acute) Acute dehydration (Acute) Chest pain (Acute) Plan of Treatment: Continue with present treatment and follow up plan. Pt is to keep follow up appointment as instructed and take medications as ordered. Discharge Medications Discharge Medications: No Known Drug Allergies Allergy (Verified 09/13/19 13:55) CONTINUE taking the following medications albuterol sulfate 2.5 mg/3 mL (0.083 %) solution for nebulization 2.5 mg inhalation PRN PRN 08/26/21 [History] New Prescriptions carvedilol 12.5 mg tablet 12.5 mg PO BID 30 days #60 tabs 09/03/21 [Rx] clonidine HCl 0.1 mg tablet 0.1 mg PO BID 30 days #60 tabs 09/03/21 [Rx] furosemide 40 mg tablet 40 mg PO QAM 30 days #30 tabs 09/03/21 [Rx] nifedipine 30 mg tablet,extended release 1 tab PO QDAY 30 days #30 tabs 09/03/21 [Rx] potassium chloride 10 mEq capsule,extended release 10 meq PO DAILY 30 days #30 caps 09/03/21 [Rx] Discharge Disposition Discharge Disposition: Home Discharge Condition: Stable Discharge Plan Discharge Plan Hospital Course: Pt is a 76 year old male past medical history of Hypertension, CABG, COPD, CKD admitted for pneumonia and strep pneu. bacteremia. His hospital/treatment course included: IVF NS@KVO, Antibiotics: Rocephin and Doxycycline, bronchodilators, and home medications were resumed. Echo was obtained, see report, will arrange outpatient referral to cardiology for significant aortic stenosis. Pt responded well to treatments, repeat blood cultures NGTD. During hospital course patient was noted to have chronic pleural effusion that was noted on CT chest. General surgery-Dr Lowery was consulted, thoracentesis performed and culture and cytology to be followed up outpatient. Pt has PICC line placed, home health arranged to complete 14 day IV antibiotic course of Rocephin. Blood pressure medications were prescribed. Pt instructed to follow up with pcp in 3-5 days and cardiology outpatient. Pt discharged in stable condition. Patient Disposition: HOME HEALTH SERVICE Condition: Stable Health Concerns: Post Hospitalization: new medications and changes needed to prevent readmission or further decline. Pt educated and given instructions on all concerns. Care Plan Goals: Problem: Respiratory Complications Goal: Improved Uncomplicated Respiratory Status Instructions: Follow provided instructions. Follow up with primary physician as directed. Contact primary care physician or report to the closest Emergency Room if condition worsens. Problem: Infection Goal: Temperature within normal limits. Resolved infection. Instructions: Follow provided instructions. Follow up with primary physician as directed. Contact primary care physician or report to the closest Emergency Room if condition worsens. Plan of Treatment: Continue with present treatment and follow up plan. Pt is to keep follow up appointment as instructed and take medications as ordered. Prescriptions: New potassium chloride 10 mEq Capsule, Extended Release 10 meq PO DAILY 30 Days Qty: 30 0RF clonidine HCl 0.1 mg Tablet 0.1 mg PO BID 30 Days Qty: 60 0RF carvedilol 12.5 mg Tablet 12.5 mg PO BID 30 Days Qty: 60 0RF ceftriaxone 1 gram Recon Soln 1 g IV QDAY Qty: 7 0RF Rx Instructions: Take Rocephin 1gm IV daily for a total of 14 days. Started on 08/27/21 will take last dose on 09/10/21 Continued Advair HFA 230-21 mcg/actuation HFA aerosol inhaler 1 puff INHALATION BID codeine-guaifenesin [Virtussin AC] 10-100 mg/5 mL liquid 10 ml PO BID Label Comments: TAKE 10 ML BY MOUTH TWICE DAILY NEEDED FOR COUGH. MAY CAUSE DROWSINESS. AVOID DRIVING albuterol sulfate 2.5 mg /3 mL (0.083 %) solution for nebulization 2.5 mg inhalation PRN PRN Label Comments: [NO ORIGINAL SIG] furosemide 40 mg tablet 40 mg PO QAM 30 Days Qty: 30 0RF nifedipine 30 mg tablet extended release 1 tab PO QDAY 30 Days Qty: 30 0RF Discontinued carvedilol 3.125 mg tablet 3.125 mg PO BID Qty: 30 0RF Rx Instructions: must administer with a meal/food lisinopril 40 mg tablet 40 mg PO DAILY clonidine HCl 0.1 mg tablet 1 tab PO QDAY PRN (Reason: blood pressure) Follow ups/Referrals Follow ups/Referrals: [facility] [Other] (IV Rocephin) EYAD RAE [STAFF PHYSICIAN] - Pramod Eisenberg [STAFF PHYSICIAN] - 09/10/21 8:20 am Instructions Instructions: Steps to Quit Smoking, Gxno-vu-[id number], Thoracentesis, Heart Failure, Self Care, Ssog-mk-Wyvs, Hypertension, Adult, Yane-nr-Eisq, Pleural Effusion, PICC Home Care Guide, Rehydration, Elderly, Dehydration, Elderly, Pqix-zd-Yqhv, Bacteremia, Adult, Community-Acquired Pneumonia, Adult, Jrqx-ar-Ldnk Stand Alone Forms: Precautions for [facility], [place] [facility], Patient Portal, Social Distancing Patient Education Addl Reference Links: Community-Acquired Pneumonia, Adult [email or web address] [email or web address] [email or web address] [email or web address]&informationRecipient=[email or web address]&p [email or web address]=en&mainSearchCri teria.v.dn=[email or web address]&r=[email or web address]
[2021-09-03 10:34] VITALS: BP 115/57
== END 2021-09-03 10:52 | disposition home health service (06) | DRG 194 ==
LOC: ER 16:56 → ICU 20:59
PROVIDERS: ADMIT Family Medicine; ATTEND Internal Medicine
DX: R07.9 Chest pain, unspecified; J98.11 Atelectasis; J18.9 Pneumonia, unspecified organism; I50.9 Heart failure, unspecified; I48.91 Unspecified atrial fibrillation; R94.31 Abnormal electrocardiogram [ECG] [EKG]; F17.210 Nicotine dependence, cigarettes, uncomplicated; Z95.1 Presence of aortocoronary bypass graft; R53.1 Weakness; R79.1 Abnormal coagulation profile; R68.83 Chills (without fever); D63.1 Anemia in chronic kidney disease; E87.6 Hypokalemia; I12.9 Hypertensive chronic kidney disease with stage 1 through stage 4 chronic kidney disease, or unspecified chronic kidney disease; I25.10 Atherosclerotic heart disease of native coronary artery without angina pectoris; J44.9 Chronic obstructive pulmonary disease, unspecified; Z20.822 Contact with and (suspected) exposure to COVID-19; R26.89 Other abnormalities of gait and mobility; N18.4 Chronic kidney disease, stage 4 (severe); B95.3 Streptococcus pneumoniae as the cause of diseases classified elsewhere; J90 Pleural effusion, not elsewhere classified; E86.0 Dehydration

== ENCOUNTER 2021-11-02 11:13 | Inpatient (IN) ==
--- NOTE | 2021-11-02 12:48 | DR.GENAD ---
HPI Time Seen Time Seen by Provider: 11/02/21 12:46 PCP Primary Care Physician: sana Complaint/Symptoms Chief Complaint:: pt family member states this started around 26 of august pt was amitted for pneumonia. then pt went home and pt was seen by [facility] nurses. fluid and swelling has been increasing the last several days, pt has had a weight gain 12.6lbs and family member states [facility] sent them here. COVID-19 Coronavirus risk:travel/contact w/high risk person: No Has patient experienced Coronavirus symptoms: Yes Coronavirus symptoms experienced: Shortness of Breath Source History Provided: Patient and Family Member Mode of Arrival Mode of Arrival: Wheelchair Timing Onset of Chief Complaint: 11/01/21 PMH PMH Past Medical History: Yes Past Medical History: CHF Past Medical History Comment: open heart surgery x2 years ago. emphysema Past Surgical History: Yes Surgical History: Appendectomy and CABG/Valve Surgery Past Surgical History Comment: open heart surgery Family History History of Family Medical Conditions: No Family Medical History: Coronary Artery Disease Social History Alcohol Use: None Do you use any recreational Drugs:: No Lives With: Family Lives Where: Home Travel Risk Coronavirus risk:travel/contact w/high risk person: No Has patient experienced Coronavirus symptoms: Yes Coronavirus symptoms experienced: Shortness of Breath Infectious screening In the last 2 months have you had wt loss of >10#?: NO Have you had fever, night sweats or hemotysis?: No Have you traveled outside the country in the last 6 months?: No Isolation: Standard PE Vital Signs Vitals: Pulse Rate 76 Respiratory Rate 26 Blood Pressure [Right Arm] 124/78 Blood Pressure 175/82 O2 Sat by Pulse Oximetry 98 ROR Labs Reviewed Result Diagrams: 11/02/21 13:13 11/02/21 13:13 Laboratory: WBC 7.1 X10^3/uL (3.6-10.0) 11/02/21 13:13 RBC 2.16 X10^6/uL (4.7-6.0) L 11/02/21 13:13 Hgb 6.8 g/dL (13.5-18.0) L* 11/02/21 13:13 Hct 20.3 % (42.0-54.0) L 11/02/21 13:13 MCV 93.8 fL (80.0-100.0) 11/02/21 13:13 MCH 31.3 pg (27.0-34.0) 11/02/21 13:13 MCHC 33.3 g/dL (33.0-35.0) 11/02/21 13:13 RDW 17.7 % (11.6-16.5) H 11/02/21 13:13 Plt Count 248 X10^3/uL (150.0-450.0) 11/02/21 13:13 MPV 7.3 fL (7.4-11.0) L 11/02/21 13:13 Neut % (Auto) 81.0 % (42.0-75.0) H 11/02/21 13:13 Lymph % (Auto) 10.2 % (21.0-51.0) L 11/02/21 13:13 [place] % (Auto) 7.3 % (0.0-13.0) 11/02/21 13:13 Eos % (Auto) 0.7 % (0.9-2.9) L 11/02/21 13:13 Baso % (Auto) 0.8 % (0.2-1.0) 11/02/21 13:13 Neut # (Auto) 5.8 x10^3/uL (2.2-4.8) H 11/02/21 13:13 Lymph # (Auto) 0.7 X10^3/uL (1.3-2.9) L 11/02/21 13:13 [place] # (Auto) 0.5 x10^3/uL (0.3-0.8) 11/02/21 13:13 Eos # (Auto) 0.1 x10^3/uL (0.0-0.2) 11/02/21 13:13 Baso # (Auto) 0.1 X10^3/uL (0.0-0.1) 11/02/21 13:13 Absolute Nucleated RBC 0.0 /100WBC 11/02/21 13:13 Sodium 138 mmol/L (136-145) 11/02/21 13:13 Corrected Sodium 138 mmol/L (136-145) 11/02/21 13:13 Potassium 3.2 mmol/L (3.5-5.1) L 11/02/21 13:13 Chloride 104 mmol/L (98-107) 11/02/21 13:13 Carbon Dioxide 25.3 mmol/L (21-32) 11/02/21 13:13 BUN 21 mg/dL (7-18) H 11/02/21 13:13 Creatinine 1.86 mg/dL (0.70-1.30) H 11/02/21 13:13 Est GFR (MDRD) Af Amer 46 (>60) L 11/02/21 13:13 Est GFR (MDRD) Non-Af 38 (>60) L 11/02/21 13:13 Glucose 115 mg/dL (65-99) H 11/02/21 13:13 Calcium 7.1 mg/dL (8.5-10.1) L 11/02/21 13:13 Corrected Calcium 8.7 mg/dL (8.5-10.1) 11/02/21 13:13 Iron 27 ug/dL (50-175) L 11/02/21 13:13 Transferrin 115 mg/dL (202-364) L 11/02/21 13:13 Ferritin 410 ng/mL (26-388) H 11/02/21 13:13 Total Bilirubin 0.30 mg/dL (0.2-1.0) 11/02/21 13:13 AST 10 Units/L (15-37) L 11/02/21 13:13 ALT 9 Units/L (12-78) L 11/02/21 13:13 Alkaline Phosphatase 103 Units/L (46-116) 11/02/21 13:13 B-Natriuretic Peptide 4440 pg/mL (0-79) H* 11/02/21 13:13 Total Protein 6.0 g/dL (6.4-8.2) L 11/02/21 13:13 Albumin 2.0 g/dL (3.4-5.0) L 11/02/21 13:13 Globulin 4.0 g/dL (2.5-4.5) 11/02/21 13:13 Albumin/Globulin Ratio 0.5 Ratio (1.1-2.1) L 11/02/21 13:13 Vitamin B12 258 pg/mL (193-986) 11/02/21 13:13 Folate 6.3 ng/mL (>8.6) L 11/02/21 13:13 Free T4 1.08 ng/dL (0.76-1.46) 11/02/21 13:13 TSH 3rd Generation 2.237 uIU/mL (0.358-3.74) 11/02/21 13:13 Specimen Type Random urine 11/02/21 14:15 Urine Color Straw (YELLOW) 11/02/21 14:15 Urine Appearance Clear (CLEAR) 11/02/21 14:15 Urine pH 6.0 (5.0 - 8.0) 11/02/21 14:15 Ur Specific [place] 1.020 (1.000-1.030) 11/02/21 14:15 Urine Protein 1+ (NEGATIVE) 11/02/21 14:15 Urine Glucose (UA) Negative (NEGATIVE) 11/02/21 14:15 Urine Ketones Negative (NEGATIVE) 11/02/21 14:15 Urine Blood 1+ (NEGATIVE) 11/02/21 14:15 Urine Nitrite Negative (NEGATIVE) 11/02/21 14:15 Urine Bilirubin Negative (NEGATIVE) 11/02/21 14:15 Urine Urobilinogen Normal (NORMAL) 11/02/21 14:15 Ur Leukocyte Esterase Negative (NEGATIVE) 11/02/21 14:15 Urine RBC 0-2 /HPF (0-3) 11/02/21 14:15 Urine WBC None seen /HPF (0-5) 11/02/21 14:15 Ur Squamous Epith Cells Rare /HPF (NEGATIVE) 11/02/21 14:15 Urine Bacteria Trace /HPF (NEGATIVE) 11/02/21 14:15 Ur Culture Indicated? No/not indicated 11/02/21 14:15 SARS-CoV-2 (PCR) Negative (NEGATIVE) 11/02/21 13:45 Influenza Type A (PCR) Negative (NEGATIVE) 11/02/21 13:45 Influenza Type B (PCR) Negative (NEGATIVE) 11/02/21 13:45 RSV (PCR) Negative (NEGATIVE) 11/02/21 13:45 Blood Type O POSITIVE 11/02/21 14:34 Antibody Screen Negative 11/02/21 14:34 Crossmatch See Detail 11/02/21 14:34 Opioid Opioid Risk Tool Age (Nestor box if 16-45): No History of Preadolescent Sexual Abuse: No Total: 0 Total Score Risk Category: Low Risk Copyright: Lindsey LR predicting aberrant behaviors Discharge Plan Diagnosis Discharge Problem: Congestive heart failure, Anemia Discharge Plan Patient Disposition: 09 ADMITTED INPATIENT Condition: Stable Orders to Discharge Patient Discharge Orders: Transfer (Routine); Ordered 11/02/21 Ordered By: MACARENA SIMS
[2021-11-02] MEDS ORDERED: LASIX IVP ONE ×2 (12:57→12:58)
[2021-11-02 13:24] LABS: BASOPHILS # (AUTO) 0.1 X10^3/uL (0.0-0.1); BASOPHILS % (AUTO) 0.8 % (0.2-1.0); EOSINOPHILS # (AUTO) 0.1 x10^3/uL (0.0-0.2); EOSINOPHILS % (AUTO) 0.7 % (0.9-2.9); LYMPHOCYTES # (AUTO) 0.7 X10^3/uL (1.3-2.9); MEAN PLATELET VOLUME 7.3 fL (7.4-11.0); MONOCYTES # (AUTO) 0.5 x10^3/uL (0.3-0.8); RED CELL DISTRIBUTION WIDTH 17.7 % (11.6-16.5); WHITE BLOOD COUNT 7.1 X10^3/uL (3.6-10.0)
[2021-11-02 13:29] LABS: HEMATOCRIT 20.3 % (42.0-54.0); LYMPHOCYTES % (AUTO) 10.2 % (21.0-51.0); MEAN CORPUSCULAR HEMOGLOBIN 31.3 pg (27.0-34.0); MEAN CORPUSCULAR HGB CONC 33.3 g/dL (33.0-35.0); MEAN CORPUSCULAR VOLUME 93.8 fL (80.0-100.0); MONOCYTES % (AUTO) 7.3 % (0.0-13.0); NEUTROPHILS # (AUTO) 5.8 x10^3/uL (2.2-4.8); RED BLOOD COUNT 2.16 X10^6/uL (4.7-6.0)
[2021-11-02 13:32] LABS: HEMOGLOBIN 6.8 g/dL (13.5-18.0)
[2021-11-02 13:39] LABS: CALCIUM 7.1 mg/dL (8.5-10.1); CARBON DIOXIDE 25.3 mmol/L (21-32); COR CA(FOR HYPOALB) 8.7 mg/dL (8.5-10.1); CREATININE 1.86 mg/dL (0.70-1.30)
[2021-11-02] MEDS ORDERED: CATAPRES TAB 0.2 MG PO ONE (13:41)
[2021-11-02] MEDS ORDERED: CATAPRES TAB 0.1 MG ONE ×2 (13:44→14:20)
[2021-11-02] MEDS ORDERED: CATAPRES TAB 0.1 MG PO ONE ×2 (14:19→21:39)
[2021-11-02 14:59] LABS: BILIRUBIN,URINE NEGATIVE (NEGATIVE); BLOOD/HEMOGLOBIN,URINE 1+ (NEGATIVE); GLUCOSE, URINE NEGATIVE (NEGATIVE); KETONES,URINE NEGATIVE (NEGATIVE); LEUKOCYTE ESTERASE ,URINE NEGATIVE (NEGATIVE); NITRITES,URINE NEGATIVE (NEGATIVE); PROTEIN,URINE 1+ (NEGATIVE); UROBILINOGEN,URINE NORMAL (NORMAL)
[2021-11-02 15:13] LABS: APPEARANCE,URINE CLEAR (CLEAR); BACTERIA,URINE TRACE /HPF (NEGATIVE); COLOR,URINE STRAW (YELLOW); RBC,URINE 0-2 /HPF (0-3); SQUAMOUS EPITHELIAL CELL,UR RARE /HPF (NEGATIVE)
[2021-11-02 15:44] LABS: FREE T4 (FREE THYROXINE) 1.08 ng/dL (0.76-1.46); TSH (3RD GENERATION) 2.237 uIU/mL (0.358-3.74)
--- NOTE | 2021-11-02 15:50 | RAD ---
HISTORYluid and swelling has been increasing the last several days, pt has had a weight gain 12.6lbs and family member states [facility] sent them here. triple bypassSTUDYCHEST, 1 [id number]/23/2022, 09/02/2021FINDINGSStable cardiomediastinal silhouette with sequelae of CABG. Pulmonary vascular congestion. Mild right base atelectasis or infiltrate. Chronic left loculated pleural effusion. No visible pneumothorax. No acute osseous finding.IMPRESSIONMild right base atelectasis or infiltrate and pulmonary vascular congestion. Chronic left pleural effusion.Electronically signed by: Hany Coto (Nov 02, 2021 15:48:24)
[2021-11-02 18:05] VITALS: BMI 18.8
[2021-11-02] MEDS ORDERED: NS 250 ML IV 250 ML IV ONE (20:33)
[2021-11-02] MEDS ORDERED: PROVENTIL NEB TX 0.083% 2.5MG/ 3ML NEB SCH (21:00)
[2021-11-02] MEDS ORDERED: NS 250 ML IV 250 ML IV PRN (21:41)
[2021-11-02] MEDS ORDERED: APRESOLINE INJ 20 MG VIAL IVP ONE (23:10)
[2021-11-02] MEDS ORDERED: APRESOLINE INJ 20 MG VIAL ONE (23:12)
[2021-11-03] MEDS ORDERED: LASIX IVP ONE (02:45)
[2021-11-03 05:20] LABS: BILIRUBIN,URINE NEGATIVE (NEGATIVE); BLOOD/HEMOGLOBIN,URINE NEGATIVE (NEGATIVE); GLUCOSE, URINE NEGATIVE (NEGATIVE); KETONES,URINE NEGATIVE (NEGATIVE); LEUKOCYTE ESTERASE ,URINE NEGATIVE (NEGATIVE); NITRITES,URINE NEGATIVE (NEGATIVE); PROTEIN,URINE NEGATIVE (NEGATIVE); UROBILINOGEN,URINE NORMAL (NORMAL)
[2021-11-03] MEDS ORDERED: PROVENTIL NEB TX 0.083% 2.5MG/ 3ML ONE (05:57)
[2021-11-03] MEDS: PROVENTIL NEB TX 0.083% 2.5MG/ 3ML NEB SCH ×3 (06:12→20:34)
[2021-11-03 06:16] LABS: APPEARANCE,URINE CLEAR (CLEAR); COLOR,URINE STRAW (YELLOW)
[2021-11-03] MEDS ORDERED: NS 250 ML IV 250 ML IV ONE ×2 (07:26→10:18)
[2021-11-03 08:00] LABS: BASOPHILS % (AUTO) 0.8 % (0.2-1.0); EOSINOPHILS % (AUTO) 0.9 % (0.9-2.9); HEMATOCRIT 28.6 % (42.0-54.0); HEMOGLOBIN 9.6 g/dL (13.5-18.0); LYMPHOCYTES % (AUTO) 18.7 % (21.0-51.0); MEAN CORPUSCULAR HEMOGLOBIN 29.3 pg (27.0-34.0); MEAN CORPUSCULAR HGB CONC 33.6 g/dL (33.0-35.0); MEAN CORPUSCULAR VOLUME 87.3 fL (80.0-100.0); MEAN PLATELET VOLUME 7.3 fL (7.4-11.0); MONOCYTES # (AUTO) 0.3 x10^3/uL (0.3-0.8); MONOCYTES % (AUTO) 6.7 % (0.0-13.0); NEUTROPHILS # (AUTO) 3.8 x10^3/uL (2.2-4.8); NEUTROPHILS % (AUTO) 72.9 % (42.0-75.0); RED BLOOD COUNT 3.28 X10^6/uL (4.7-6.0); RED CELL DISTRIBUTION WIDTH 21.8 % (11.6-16.5); WHITE BLOOD COUNT 5.2 X10^3/uL (3.6-10.0)
[2021-11-03 08:05] LABS: INR 1.16 (0.8-1.3)
[2021-11-03 08:13] LABS: ALBUMIN 2.1 g/dL (3.4-5.0); CALCIUM 7.4 mg/dL (8.5-10.1); CARBON DIOXIDE 25.4 mmol/L (21-32); COR CA(FOR HYPOALB) 8.9 mg/dL (8.5-10.1); CREATININE 1.99 mg/dL (0.70-1.30); MAGNESIUM 1.4 mg/dL (1.7-2.9)
[2021-11-03] MEDS: LASIX IVP SCH (09:21)
[2021-11-03] MEDS: CATAPRES TAB 0.2 MG PO SCH ×2 (09:22→20:05)
[2021-11-03 10:14] LABS: PLATELET MORPHOLOGY COMMENT NORMAL (NORMAL)
[2021-11-03 10:15] LABS: ANISOCYTOSIS 1+
--- NOTE | 2021-11-03 14:33 | DR.H&P ---
H&P - History & Physical for Day of: H&P Date: 11/02/21 - Chief Complaint Chief Complaint: INCREASE SOB, WEIGHT GAIN "HOLDING FLUID" - History of Present Illness History of Present Illness: PT IS 76 WM ER ADMISSION AFTER PRESENTING WITH CO INCREASED SOB AND INCREASE IN WEIGHT BY ~12 LBS. PT REPORTS HE FEELS LIKE HE IS "HOLDING FLUID". PT HAS PMH OF HTN AND COPD. PT HAD ECHO IN 09/13 WITH EF 69% WITH MODERATE VALVE DISEASE. PT REPORTS HX OF FLUID ON LUNGS AND PNEUMONIA 1-2 MOS AGO. PT WAS ANEMIC ON ADMISSION AND ADMITTED FOR TREATMENT AND EVALUATION OF ACUTE ILLNESS. - Past Medical History Past Medical History: Anemia, CHF, COPD, Hypertension - Past Surgical History Surgical History: Appendectomy, CABG/Valve Surgery - Family History Family Medical History: Coronary Artery Disease - Social History Does patient currently use any type of tobacco product: No Have you used tobacco products in the last 12 months: Yes Type of Tobacco Use: Cigarettes Alcohol Use: None Drug Use: None - Medications Home Medications: No Known Drug Allergies Allergy (Verified 09/13/19 13:55) - Review of Systems Constitutional: Weakness, Malaise. denies: Fever Eyes: No Symptoms Reported ENT: No Symptoms Reported Respiratory: Shortness of Breath, SOB with Excertion, Wheezing Cardiovascular: Edema Gastrointestinal: Nausea Genitourinary: No Symptoms Reported Musculoskeletal: No Symptoms Reported Skin: No Symptoms Reported Neurological: Weakness - Physical Exam Vital Signs: Temperature 97.6 F Pulse Rate 78 Respiratory Rate 18 Blood Pressure [Right Arm] 166/72 Blood Pressure 170/72 O2 Sat by Pulse Oximetry 100 Oriented: Normal Eyes: Normal Ear: Normal Nose: Normal Respiratory: Wheezes Throughout Cardiovascular: Murmur, Edema : Normal Auscultation: Bowel Sounds: Normal Palpation: Normal Tenderness: Normal Skin: Decreased Turgur Musculoskeletal: Instability (MILD BILATERAL LOWER EXTREMITY WEAKNESS) Mood Description: Calm Speech Pattern: Clear, Appropriate - Assessment/Plan (1) Anemia Status: Acute Plan: ADMIT ICU, ANEMIA PANEL AND OCCULT STOOL ON ADMISSION. RESP THERAPY AND SUPPLEMENTAL O2, STRICT I&OS, DUO NEBS. CXR ON ADMISSION, CARDIAC MONITORING, TRANFUSION PRBC SLOWLY PER PROTOCOL WITH H&H POST TRANSFUSION. VERIFY AND RESUME HYPERTENSIVE MEDICATION (2) COPD (chronic obstructive pulmonary disease) Status: Acute (3) Elevated brain natriuretic peptide (BNP) level Status: Acute (4) Mass of upper lobe of right lung Status: Acute (5) Hypertension, uncontrolled Status: Acute (6) CAD (coronary artery disease) Qualifiers: Coronary Disease-Associated Artery/Lesion type: [place] artery [place] vs. transplanted heart: [place] heart Associated angina: without angina Qualified Code(s): I25.10 - Atherosclerotic heart disease of [place] coronary artery witho ut angina pectoris Status: Acute (7) CKD (chronic kidney disease) stage 4, GFR 15-29 ml/min Status: Acute - Allergies Allergies/Adverse Reactions: Allergies Allergy/AdvReac Type Severity Reaction Status Date / Time No Known Drug Allergies Allergy Verified 09/13/19 13:55
--- NOTE | 2021-11-03 14:41 | PCM.PROG ---
Progress Note - Progress Note for Day of Date of Exam: 11/03/21 - Subjective Subjective: PT IS 76 WM, ER ADMISSION WITH SYMPTOMATIC ANEMIA AND CHF EXACERBATION. PTS CURRENTLY RECEIVING PRBC PER PROTCOL. PT CO SOB WITH HISTORY OF COPD, SUPPLEMENTAL O2 AND RESP THERAPY ORDERED. PT DENIES ANY RECENT FEVER. PT HGB AT 9.6 THIS MORNING. PT BUN 21/CREAT 1.99. STRICT I&OS CONTINUED. PT B LOOD PRESSURE WAS ELEVATED THIS AM, REPORTS HE TAKES NIFEDIPINE AT HOME. HE HAD RECEIVED CATAPRES 0.1MG PO FOR HTN TREATMENT SINCE ADMISSION. - Past Medical Family Social History Past Med/Fam/Surg Hx: No changes since H&P Allergies: Allergies No Known Drug Allergies Allergy (Verified 09/13/19 13:55) - Review of Systems ROS: No change since H&P - Vital Signs and I&O's Vital Signs: Temperature 97.6 F Pulse Rate 78 Respiratory Rate 18 Blood Pressure [Right Arm] 166/72 Blood Pressure 170/72 O2 Sat by Pulse Oximetry 100 Intake and Output: Intake & Output 11/01/21 11/02/21 11/03/21 11/04/21 11:59 11:59 11:59 11:59 Intake Total 1092 / 1092 350 / 350 Output Total 1300 / 1300 Balance -208 / -208 350 / 350 - Physical Exam Oriented: Normal Eyes: Normal Ear: Normal Nose: Normal Respiratory: Diminished, Wheezes Cardiovascular: Murmur, Edema : Normal Auscultation: Bowel Sounds: Normal Tenderness: Normal Skin: Decreased Turgur Musculoskeletal: Instability (MILD BILATERAL LOWER EXTREMITY WEAKNESS) Mood Description: Calm Speech Pattern: Clear, Appropriate - Laboratory and Diagnostics Result Diagrams: 11/03/21 07:40 11/03/21 07:40 Labs: Laboratory WBC 5.2 X10^3/uL (3.6-10.0) 11/03/21 07:40 RBC 3.28 X10^6/uL (4.7-6.0) L 11/03/21 07:40 Hgb 9.6 g/dL (13.5-18.0) L D 11/03/21 07:40 Hct 28.6 % (42.0-54.0) L 11/03/21 07:40 MCV 87.3 fL (80.0-100.0) 11/03/21 07:40 MCH 29.3 pg (27.0-34.0) 11/03/21 07:40 MCHC 33.6 g/dL (33.0-35.0) 11/03/21 07:40 RDW 21.8 % (11.6-16.5) H 11/03/21 07:40 Plt Count 229 X10^3/uL (150.0-450.0) 11/03/21 07:40 Plt Count Comment Adequate (ADEQUATE) 11/03/21 07:40 MPV 7.3 fL (7.4-11.0) L 11/03/21 07:40 Neut % (Auto) 72.9 % (42.0-75.0) 11/03/21 07:40 Lymph % (Auto) 18.7 % (21.0-51.0) L 11/03/21 07:40 [place] % (Auto) 6.7 % (0.0-13.0) 11/03/21 07:40 Eos % (Auto) 0.9 % (0.9-2.9) 11/03/21 07:40 Baso % (Auto) 0.8 % (0.2-1.0) 11/03/21 07:40 Neut # (Auto) 3.8 x10^3/uL (2.2-4.8) 11/03/21 07:40 Lymph # (Auto) 1.0 X10^3/uL (1.3-2.9) L 11/03/21 07:40 [place] # (Auto) 0.3 x10^3/uL (0.3-0.8) 11/03/21 07:40 Eos # (Auto) 0.0 x10^3/uL (0.0-0.2) 11/03/21 07:40 Baso # (Auto) 0.0 X10^3/uL (0.0-0.1) 11/03/21 07:40 Absolute Nucleated RBC 0.1 /100WBC 11/03/21 07:40 Plt Morphology Comment Normal (NORMAL) 11/03/21 07:40 RBC Morphology Abnormal (NORMAL) 11/03/21 07:40 Anisocytosis 1+ A 11/03/21 07:40 PT 14.4 SECONDS (11.8-14.3) 11/03/21 07:40 INR Target Range - 11/03/21 07:40 INR 1.16 (0.8-1.3) 11/03/21 07:40 APTT 33.9 SECONDS (22.9-36.5) 11/03/21 07:40 PTT Comment - 11/03/21 07:40 Sodium 136 mmol/L (136-145) 11/03/21 07:40 Corrected Sodium 136 mmol/L (136-145) 11/03/21 07:40 Potassium 3.5 mmol/L (3.5-5.1) 11/03/21 07:40 Chloride 102 mmol/L (98-107) 11/03/21 07:40 Carbon Dioxide 25.4 mmol/L (21-32) 11/03/21 07:40 BUN 21 mg/dL (7-18) H 11/03/21 07:40 Creatinine 1.99 mg/dL (0.70-1.30) H 11/03/21 07:40 Est GFR (MDRD) Af Amer 42 (>60) L 11/03/21 07:40 Est GFR (MDRD) Non-Af 35 (>60) L 11/03/21 07:40 Glucose 119 mg/dL (65-99) H 11/03/21 07:40 Calcium 7.4 mg/dL (8.5-10.1) L 11/03/21 07:40 Corrected Calcium 8.9 mg/dL (8.5-10.1) 11/03/21 07:40 Magnesium 1.4 mg/dL (1.7-2.9) L 11/03/21 07:40 Iron 27 ug/dL (50-175) L 11/02/21 13:13 Transferrin 115 mg/dL (202-364) L 11/02/21 13:13 Ferritin 410 ng/mL (26-388) H 11/02/21 13:13 Total Bilirubin 0.90 mg/dL (0.2-1.0) 11/03/21 07:40 AST 12 Units/L (15-37) L 11/03/21 07:40 ALT 6 Units/L (12-78) L 11/03/21 07:40 Alkaline Phosphatase 102 Units/L (46-116) 11/03/21 07:40 Creatine Kinase 40 Units/L (39-308) 11/03/21 07:40 Troponin I High Sens 60.4 ng/L (4.0-60.0) H* 11/03/21 07:40 B-Natriuretic Peptide 4440 pg/mL (0-79) H* 11/02/21 13:13 Total Protein 6.0 g/dL (6.4-8.2) L 11/03/21 07:40 Albumin 2.1 g/dL (3.4-5.0) L 11/03/21 07:40 Globulin 3.9 g/dL (2.5-4.5) 11/03/21 07:40 Albumin/Globulin Ratio 0.5 Ratio (1.1-2.1) L 11/03/21 07:40 Vitamin B12 258 pg/mL (193-986) 11/02/21 13:13 Folate 6.3 ng/mL (>8.6) L 11/02/21 13:13 Free T4 1.08 ng/dL (0.76-1.46) 11/02/21 13:13 TSH 3rd Generation 2.237 uIU/mL (0.358-3.74) 11/02/21 13:13 Specimen Type Random urine 11/03/21 04:25 Urine Color Straw (YELLOW) 11/03/21 04:25 Urine Appearance Clear (CLEAR) 11/03/21 04:25 Urine pH 5.0 (5.0 - 8.0) 11/03/21 04:25 Ur Specific [place] 1.010 (1.000-1.030) 11/03/21 04:25 Urine Protein Negative (NEGATIVE) 11/03/21 04:25 Urine Glucose (UA) Negative (NEGATIVE) 11/03/21 04:25 Urine Ketones Negative (NEGATIVE) 11/03/21 04:25 Urine Blood Negative (NEGATIVE) 11/03/21 04:25 Urine Nitrite Negative (NEGATIVE) 11/03/21 04:25 Urine Bilirubin Negative (NEGATIVE) 11/03/21 04:25 Urine Urobilinogen Normal (NORMAL) 11/03/21 04:25 Ur Leukocyte Esterase Negative (NEGATIVE) 11/03/21 04:25 Urine RBC 0-2 /HPF (0-3) 11/02/21 14:15 Urine WBC None seen /HPF (0-5) 11/02/21 14:15 Ur Squamous Epith Cells Rare /HPF (NEGATIVE) 11/02/21 14:15 Urine Bacteria Trace /HPF (NEGATIVE) 11/02/21 14:15 Ur Culture Indicated? No/not indicated 11/02/21 14:15 SARS-CoV-2 (PCR) Negative (NEGATIVE) 11/02/21 13:45 Influenza Type A (PCR) Negative (NEGATIVE) 11/02/21 13:45 Influenza Type B (PCR) Negative (NEGATIVE) 11/02/21 13:45 RSV (PCR) Negative (NEGATIVE) 11/02/21 13:45 Blood Type O POSITIVE 11/02/21 14:34 Antibody Screen Negative 11/02/21 14:34 Crossmatch See Detail 11/02/21 14:34 - Plan (1) Anemia Status: Acute Plan: S/P TRANFUSION PRBC. ANEMIA PANEL AND OCCULT STOOL ON ADMISSION. RESP THERAPY AND SUPPLEMENTAL O2, STRICT I&OS, DUO NEBS. REPEAT AM CXR, CARDIAC MONITORING, CONTINUE SERIAL CE AND EKG MONITORING. VERIFY AND RESUME HYPERTENSIVE MEDICATION (2) COPD (chronic obstructive pulmonary disease) Status: Acute (3) Elevated brain natriuretic peptide (BNP) level Status: Acute (4) Mass of upper lobe of right lung Status: Acute (5) Hypertension, uncontrolled Status: Acute (6) CAD (coronary artery disease) Status: Acute Qualifiers: Coronary Disease-Associated Artery/Lesion type: [place] artery [place] vs. transplanted heart: [place] heart Associated angina: without angina Qualified Code(s): I25.10 - Atherosclerotic heart disease of [place] coronary artery without angina pectoris (7) CKD (chronic kidney disease) stage 4, GFR 15-29 ml/min Status: Acute
--- NOTE | 2021-11-03 15:22 | RAD ---
HISTORYAnemia CHFSTUDYAP chestCOMPARISONSeptember 2021FINDINGSHeart size remains normal with sternotomy wires. Persistent left pleural effusion, unchanged. There is no definite infiltrate or consolidation now identified in the right lung.IMPRESSIONStable normal heart size and no change in extent or distribution of large left pleural effusion. No new abnormality demonstrated.Electronically signed by: MIKAELA PALOMO (Nov 03, 2021 15:21:32)
[2021-11-03] MEDS: PROCARDIA XL PO SCH (15:23)
[2021-11-03 16:36] LABS: HEMATOCRIT 27.7 % (42.0-54.0); HEMOGLOBIN 9.5 g/dL (13.5-18.0)
[2021-11-03] MEDS ORDERED: APRESOLINE INJ 20 MG VIAL IVP ONE (17:56)
[2021-11-03] MEDS ORDERED: APRESOLINE INJ 20 MG VIAL ONE (18:09)
[2021-11-03] MEDS ORDERED: MAGNESIUM SULFATE 1 GRAM/100 mL PREMIX 1 G/100 ML BAG IV ONE (19:33)
[2021-11-03] MEDS: MAGNESIUM SULFATE 1 GRAM/100 mL PREMIX 1 G/100 ML BAG IV PRN ×4 (19:40→22:51)
[2021-11-04 05:47] LABS: BASOPHILS % (AUTO) 0.7 % (0.2-1.0); EOSINOPHILS # (AUTO) 0.1 x10^3/uL (0.0-0.2); HEMATOCRIT 29.5 % (42.0-54.0); HEMOGLOBIN 10.2 g/dL (13.5-18.0); LYMPHOCYTES # (AUTO) 0.8 X10^3/uL (1.3-2.9); MEAN CORPUSCULAR HEMOGLOBIN 29.5 pg (27.0-34.0); MEAN CORPUSCULAR HGB CONC 34.7 g/dL (33.0-35.0); MEAN CORPUSCULAR VOLUME 85.1 fL (80.0-100.0); MEAN PLATELET VOLUME 7.3 fL (7.4-11.0); MONOCYTES # (AUTO) 0.4 x10^3/uL (0.3-0.8); NEUTROPHILS # (AUTO) 4.9 x10^3/uL (2.2-4.8); NEUTROPHILS % (AUTO) 78.3 % (42.0-75.0); RED BLOOD COUNT 3.46 X10^6/uL (4.7-6.0); RED CELL DISTRIBUTION WIDTH 19.8 % (11.6-16.5); WHITE BLOOD COUNT 6.3 X10^3/uL (3.6-10.0)
[2021-11-04] MEDS: PROVENTIL NEB TX 0.083% 2.5MG/ 3ML NEB SCH ×3 (05:59→20:32)
[2021-11-04 06:06] LABS: ALANINE AMINOTRANSFERASE 8 Units/L (12-78); ALBUMIN 1.9 g/dL (3.4-5.0); ALKALINE PHOSPHATASE 95 Units/L (46-116); ASPARTATE AMINO TRANSFERASE 11 Units/L (15-37); BLOOD UREA NITROGEN 23 mg/dL (7-18); CALCIUM 7.1 mg/dL (8.5-10.1); CARBON DIOXIDE 26.5 mmol/L (21-32); CHLORIDE 100 mmol/L (98-107); COR CA(FOR HYPOALB) 8.8 mg/dL (8.5-10.1); CREATININE 2.03 mg/dL (0.70-1.30); MAGNESIUM 2.1 mg/dL (1.7-2.9); SODIUM 134 mmol/L (136-145); TOTAL PROTEIN 5.6 g/dL (6.4-8.2); eGFR NON BLACK RACES 34 (>60)
[2021-11-04] MEDS: PROCARDIA XL PO SCH (09:26)
[2021-11-04] MEDS: LASIX IVP SCH (09:26)
[2021-11-04] MEDS: CATAPRES TAB 0.2 MG PO SCH ×2 (09:26→20:25)
--- NOTE | 2021-11-04 10:41 | RAD ---
HISTORYRelevant Clinical Information CHFSTUDYCHEST, 1 VIEWCOMPARISONSeptember 2021FINDINGSThe trachea is midline. The cardiac silhouette is unchanged. There is persistent left-sided loculated effusion which is unchanged. Chronic interstitial changes are again noted as well.. The bony thorax is unremarkable.IMPRESSIONStable chest with no change compared to priorElectronically signed by: JOSELITO DARLING (Nov 04, 2021 10:38:58)
[2021-11-04] MEDS: LOVENOX INJ 30 MG SYR SC SCH (11:30)
--- NOTE | 2021-11-04 15:20 | PCM.PROG ---
Progress Note Progress Note for Day of Date of Exam: 11/04/21 Subjective Subjective: PT IS A 76 YEAR OLD MALE PAST MEDICAL HISTORY OF COPD, HYPERTENSION, CHF, ADMITTED FOR SYMPTOMATIC ANEMIA AND CHF EXACERBATION. THIS MORNING PATIENT REPORTS FEELING BETTER THAN HE DID YESTERDAY. HE REPORTS HIS LEG SWELLING HAS IMPROVED AND HIS BREATHING IS BACK TO BASELINE. HE DID RECEIVE 2 UNITS OF PACKED RED BLOOD CELLS, HEMOGLOBIN HAS REMAINED STABLE. LABS/IMAGING: WBC 6.3, HGB 10.2, PLT 216, NA 134, K 3.2, CREATININE 2.03, GLUCOSE 106, BNP 1760. CXR WAS OBTAINED THAT REVEALED: no change in extent or distribution of large left pleural effusion. PT IS CURRENTLY RECEIVING SUPPLEMENTAL O2, RESPIRATORY THERAPY WITH BRONCHODILATORS, IV LASIX 40MG DAILY, AND HOME BLOOD PRESSURE MEDICATIONS. WILL CONTINUE WITH STRICT I&OS. LARGE PLEURAL EFFUSION AGAIN NOTED, WILL CONSULT GENERAL SURGERY-DR ERVIN FOR POSSIBLE THORACENTESIS. PT HAS AGAIN REFUSED FURTHER CARDIAC WORKUP AT THIS TIME AFTER DISCUSSING WE HAVE BEFORE IN CLINIC THE CHRONIC PROBLEMS THAT NEED FURTHER EVALUATION. HE DOES UNDERSTAND THE RISK AND STATES THAT HE WILL FINALLY SEE THE SECURITY SERVICES SPECIALIST IF WE MAKE A REFERRAL OUT PATIENT. WILL GET CASE MANAGEMENT TO ARRANGE. OTHERWISE WILL CONTINUE WITH CURRENT TREATMENT PLAN. CONTINUE TO CLOSELY MONITOR AND FOLLOW UP LABS/IMAGING. Past Medical Family Social History Past Med/Fam/Surg Hx: No changes since H&P Allergies: Allergies No Known Drug Allergies Allergy (Verified 09/13/19 13:55) Review of Systems ROS: No change since H&P Vital Signs and I&O's Vital Signs: Temperature 97.7 F Pulse Rate [Left Brachial] 67 Pulse Rate 61 Respiratory Rate 16 Blood Pressure [Right Arm] 152/67 Blood Pressure 155/74 O2 Sat by Pulse Oximetry 99 Intake and Output: Intake & Output 11/01/21 11/02/21 11/03/21 11/04/21 23:59 23:59 23:59 23:59 Intake Total 130 / 130 3662 / 3662 260 / 260 Output Total 750 / 750 2400 / 2400 600 / 600 Balance -620 / -620 1262 / 1262 -340 / -340 Physical Exam Oriented: Normal Eyes: Normal Ear: Normal Nose: Normal Respiratory: Diminished and Wheezes Cardiovascular: Murmur and Edema : Normal Auscultation: Bowel Sounds: Normal Tenderness: Normal Skin: Decreased Turgur Musculoskeletal: Instability (MILD BILATERAL LOWER EXTREMITY WEAKNESS) Mood Description: Calm Speech Pattern: Clear and Appropriate Laboratory and Diagnostics Result Diagrams: 11/04/21 04:41 11/04/21 04:41 Labs: Laboratory WBC 6.3 X10^3/uL (3.6-10.0) 11/04/21 04:41 RBC 3.46 X10^6/uL (4.7-6.0) L 11/04/21 04:41 Hgb 10.2 g/dL (13.5-18.0) L 11/04/21 04:41 Hct 29.5 % (42.0-54.0) L 11/04/21 04:41 MCV 85.1 fL (80.0-100.0) 11/04/21 04:41 MCH 29.5 pg (27.0-34.0) 11/04/21 04:41 MCHC 34.7 g/dL (33.0-35.0) 11/04/21 04:41 RDW 19.8 % (11.6-16.5) H 11/04/21 04:41 Plt Count 216 X10^3/uL (150.0-450.0) 11/04/21 04:41 Plt Count Comment Adequate (ADEQUATE) 11/03/21 07:40 MPV 7.3 fL (7.4-11.0) L 11/04/21 04:41 Neut % (Auto) 78.3 % (42.0-75.0) H 11/04/21 04:41 Lymph % (Auto) 13.0 % (21.0-51.0) L 11/04/21 04:41 Thomas % (Auto) 7.0 % (0.0-13.0) 11/04/21 04:41 Eos % (Auto) 1.0 % (0.9-2.9) 11/04/21 04:41 Baso % (Auto) 0.7 % (0.2-1.0) 11/04/21 04:41 Neut # (Auto) 4.9 x10^3/uL (2.2-4.8) H 11/04/21 04:41 Lymph # (Auto) 0.8 X10^3/uL (1.3-2.9) L 11/04/21 04:41 Thomas # (Auto) 0.4 x10^3/uL (0.3-0.8) 11/04/21 04:41 Eos # (Auto) 0.1 x10^3/uL (0.0-0.2) 11/04/21 04:41 Baso # (Auto) 0.0 X10^3/uL (0.0-0.1) 11/04/21 04:41 Absolute Nucleated RBC 0.0 /100WBC 11/04/21 04:41 Plt Morphology Comment Normal (NORMAL) 11/03/21 07:40 RBC Morphology Abnormal (NORMAL) 11/03/21 07:40 Anisocytosis 1+ A 11/03/21 07:40 PT 14.4 SECONDS (11.8-14.3) 11/03/21 07:40 INR Target Range - 11/03/21 07:40 INR 1.16 (0.8-1.3) 11/03/21 07:40 APTT 33.9 SECONDS (22.9-36.5) 11/03/21 07:40 PTT Comment - 11/03/21 07:40 Sodium 134 mmol/L (136-145) L 11/04/21 04:41 Corrected Sodium TNP 11/04/21 04:41 Potassium 3.2 mmol/L (3.5-5.1) L 11/04/21 04:41 Chloride 100 mmol/L (98-107) 11/04/21 04:41 Carbon Dioxide 26.5 mmol/L (21-32) 11/04/21 04:41 BUN 23 mg/dL (7-18) H 11/04/21 04:41 Creatinine 2.03 mg/dL (0.70-1.30) H 11/04/21 04:41 Est GFR (MDRD) Af Amer 41 (>60) L 11/04/21 04:41 Est GFR (MDRD) Non-Af 34 (>60) L 11/04/21 04:41 Glucose 106 mg/dL (65-99) H 11/04/21 04:41 Calcium 7.1 mg/dL (8.5-10.1) L 11/04/21 04:41 Corrected Calcium 8.8 mg/dL (8.5-10.1) 11/04/21 04:41 Magnesium 2.1 mg/dL (1.7-2.9) 11/04/21 04:41 Iron 27 ug/dL (50-175) L 11/02/21 13:13 Transferrin 115 mg/dL (202-364) L 11/02/21 13:13 Ferritin 410 ng/mL (26-388) H 11/02/21 13:13 Total Bilirubin 0.80 mg/dL (0.2-1.0) 11/04/21 04:41 AST 11 Units/L (15-37) L 11/04/21 04:41 ALT 8 Units/L (12-78) L 11/04/21 04:41 Alkaline Phosphatase 95 Units/L (46-116) 11/04/21 04:41 Creatine Kinase 40 Units/L (39-308) 11/03/21 07:40 Troponin I High Sens 60.4 ng/L (4.0-60.0) H* 11/03/21 07:40 B-Natriuretic Peptide 1760 pg/mL (0-79) H* 11/04/21 04:41 Total Protein 5.6 g/dL (6.4-8.2) L 11/04/21 04:41 Albumin 1.9 g/dL (3.4-5.0) L 11/04/21 04:41 Globulin 3.7 g/dL (2.5-4.5) 11/04/21 04:41 Albumin/Globulin Ratio 0.5 Ratio (1.1-2.1) L 11/04/21 04:41 Vitamin B12 258 pg/mL (193-986) 11/02/21 13:13 Folate 6.3 ng/mL (>8.6) L 11/02/21 13:13 Free T4 1.08 ng/dL (0.76-1.46) 11/02/21 13:13 TSH 3rd Generation 2.237 uIU/mL (0.358-3.74) 11/02/21 13:13 Specimen Type Random urine 11/03/21 04:25 Urine Color Straw (YELLOW) 11/03/21 04:25 Urine Appearance Clear (CLEAR) 11/03/21 04:25 Urine pH 5.0 (5.0 - 8.0) 11/03/21 04:25 Ur Specific [place] 1.010 (1.000-1.030) 11/03/21 04:25 Urine Protein Negative (NEGATIVE) 11/03/21 04:25 Urine Glucose (UA) Negative (NEGATIVE) 11/03/21 04:25 Urine Ketones Negative (NEGATIVE) 11/03/21 04:25 Urine Blood Negative (NEGATIVE) 11/03/21 04:25 Urine Nitrite Negative (NEGATIVE) 11/03/21 04:25 Urine Bilirubin Negative (NEGATIVE) 11/03/21 04:25 Urine Urobilinogen Normal (NORMAL) 11/03/21 04:25 Ur Leukocyte Esterase Negative (NEGATIVE) 11/03/21 04:25 Urine RBC 0-2 /HPF (0-3) 11/02/21 14:15 Urine WBC None seen /HPF (0-5) 11/02/21 14:15 Ur Squamous Epith Cells Rare /HPF (NEGATIVE) 11/02/21 14:15 Urine Bacteria Trace /HPF (NEGATIVE) 11/02/21 14:15 Ur Culture Indicated? No/not indicated 11/02/21 14:15 Stool Description [address] 11/04/21 09:40 Stl Occult Blood (IFOB) Negative (NEGATIVE) 11/04/21 09:40 SARS-CoV-2 (PCR) Negative (NEGATIVE) 11/02/21 13:45 Influenza Type A (PCR) Negative (NEGATIVE) 11/02/21 13:45 Influenza Type B (PCR) Negative (NEGATIVE) 11/02/21 13:45 RSV (PCR) Negative (NEGATIVE) 11/02/21 13:45 Blood Type O POSITIVE 11/02/21 14:34 Antibody Screen Negative 11/02/21 14:34 Crossmatch See Detail 11/02/21 14:34 Plan (1) Anemia: Status: Acute Plan: S/P TRANFUSION PRBC. RESP THERAPY AND SUPPLEMENTAL O2, STRICT I&OS, DUO NEBS REPEAT AM CXR, CARDIAC MONITORING, RESUME HYPERTENSIVE MEDICATION (2) COPD (chronic obstructive pulmonary disease): Status: Acute (3) Elevated brain natriuretic peptide (BNP) level: Status: Acute (4) Mass of upper lobe of right lung: Status: Acute (5) Hypertension, uncontrolled: Status: Acute (6) CAD (coronary artery disease): Status: Acute Qualifiers: Associated angina: without angina Coronary Disease-Associated Artery/Lesion type: [place] artery [place] vs. transplanted heart: [place] heart Qualified Code(s): I25.10 - Atherosclerotic heart disease of [place] coronary artery without angina pectoris (7) CKD (chronic kidney disease) stage 4, GFR 15-29 ml/min: Status: Acute (8) CHF exacerbation: Status: Acute
[2021-11-04] MEDS: COREG TAB 12.5 MG PO SCH (20:25)
[2021-11-05 05:27] LABS: BASOPHILS % (AUTO) 0.7 % (0.2-1.0); EOSINOPHILS # (AUTO) 0.2 x10^3/uL (0.0-0.2); EOSINOPHILS % (AUTO) 2.6 % (0.9-2.9); HEMATOCRIT 27.7 % (42.0-54.0); HEMOGLOBIN 9.6 g/dL (13.5-18.0); LYMPHOCYTES # (AUTO) 0.8 X10^3/uL (1.3-2.9); LYMPHOCYTES % (AUTO) 13.2 % (21.0-51.0); MEAN CORPUSCULAR HEMOGLOBIN 29.6 pg (27.0-34.0); MEAN CORPUSCULAR HGB CONC 34.6 g/dL (33.0-35.0); MEAN CORPUSCULAR VOLUME 85.5 fL (80.0-100.0); MEAN PLATELET VOLUME 7.4 fL (7.4-11.0); MONOCYTES # (AUTO) 0.5 x10^3/uL (0.3-0.8); MONOCYTES % (AUTO) 8.4 % (0.0-13.0); NEUTROPHILS # (AUTO) 4.4 x10^3/uL (2.2-4.8); NEUTROPHILS % (AUTO) 75.1 % (42.0-75.0); RED BLOOD COUNT 3.24 X10^6/uL (4.7-6.0); RED CELL DISTRIBUTION WIDTH 20.4 % (11.6-16.5); WHITE BLOOD COUNT 5.8 X10^3/uL (3.6-10.0)
[2021-11-05] MEDS: PROVENTIL NEB TX 0.083% 2.5MG/ 3ML NEB SCH (05:36)
[2021-11-05 05:37] LABS: ANISOCYTOSIS 1+; PLATELET MORPHOLOGY COMMENT NORMAL (NORMAL)
[2021-11-05 05:55] LABS: ALANINE AMINOTRANSFERASE 7 Units/L (12-78); ALBUMIN 1.8 g/dL (3.4-5.0); ALKALINE PHOSPHATASE 93 Units/L (46-116); ASPARTATE AMINO TRANSFERASE 10 Units/L (15-37); BLOOD UREA NITROGEN 27 mg/dL (7-18); CALCIUM 7.1 mg/dL (8.5-10.1); CARBON DIOXIDE 27.5 mmol/L (21-32); CHLORIDE 100 mmol/L (98-107); COR CA(FOR HYPOALB) 8.9 mg/dL (8.5-10.1); CREATININE 2.04 mg/dL (0.70-1.30); SODIUM 133 mmol/L (136-145); TOTAL PROTEIN 5.5 g/dL (6.4-8.2); eGFR NON BLACK RACES 34 (>60)
--- NOTE | 2021-11-05 07:21 | RAD ---
HISTORYFollow up pleural effusionSTUDYChest AP [id number]/12/2022FINDINGSPati ent is rotated to the left. Patient is status post median sternotomy and CABG. Heart size is normal. [place] are normal. Lungs are hyperinflated. Mild chronic interstitial lung changes are present bilaterally. Persistent but unchanged left pleural effusion is again identified. Underlying infiltrate or atelectasis is possible. Remainder of the lung burris are free of alveolar infiltrates and areas of consolidation. Bony thorax is unremarkable.IMPRESSIONNo change left pleural effusion. Left lower lobe infiltrate or atelectasis underlying the effusion is possibleHyperinflation unchangedMild chronic interstitial lung changes, stableElectronically signed by: KHAI STEPHENSON (Nov 05, 2021 07:19:20)
--- NOTE | 2021-11-05 08:25 | W.DIS.FURT ---
Summary of Discharge Discharge Summary of Date Date of Exam: 11/05/21 Admission Date Date of Admission: 11/02/21 Admission Diagnosis Patient Problems (Updated 11/04/21 @ 15:27 by Pramod Eisenberg) Mass of upper lobe of right lung (Acute) R91.8 Anemia (Acute) D64.9 Anemia (Acute) D64.9 Elevated brain natriuretic peptide (BNP) level (Acute) R79.89 COPD (chronic obstructive pulmonary disease) (Acute) J44.9 Congestive heart failure (CHF) (Acute) I50.9 Hypertension, uncontrolled (Acute) I10 CAD (coronary artery disease) (Acute) I25.10 CKD (chronic kidney disease) stage 4, GFR 15-29 ml/min (Acute) N18.4 Hospital Course: PT IS A 76 YEAR OLD MALE PAST MEDICAL HISTORY OF COPD, HYPERTENSION, CHF, ADMITTED FOR SYMPTOMATIC ANEMIA AND CHF EXACERBATION. HIS HOSPITAL/TREATMENT COURSE INCLUDED: SUPPLEMENTAL O2, RESPIRATORY THERAPY WITH BRONCHODILATORS, IV LASIX 40MG DAILY, AND HOME BLOOD PRESSURE MEDICATION. HE RESPONDED WELL TO TREATMENTS AND ON DAY OF DISCHARGE DID NOT REPORT ANY SHORTNESS OF BREATH OR SWELLING. HE DID RECEIVE 2 UNITS OF PACKED RED BLOOD CELLS DURING STAY AND HIS HEMOGLOBIN HAS REMAINED STABLE. LABS/IMAGING: WBC 5.8, HGB 9.6, PLT 204, NA 133, K 3.4, CREATININE 2.04, GLUCOSE 94, PT DID AGAIN REFUSED FURTHER CARDIAC WORKUP WHILE INPATIENT BUT DID STATE HE WOULD SEE LAMINATION INSPECTOR OUTPATIENT. CASE MANAGEMENT TO ARRANGE REFERRAL TO DR CASTRO. PT DISCHARGED IN STABLE CONDITION, INSTRUCTED TO FOLLOW UP WITH PCP IN 1 WEEK AND CARDIOLOGY OUTPATIENT. Vital Signs: Vital Signs (72 hours) 11/02/21 11:22 11/02/21 12:28 11/02/21 12:29 Temperature Pulse Rate 102 H Pulse Rate [Left Brachial] Respiratory Rate 23 Blood Pressure 175/98 229/107 Blood Pressure [Right Arm] O2 Sat by Pulse Oximetry 100 100 Oxygen Delivery Method FIO2% 11/02/21 12:29 11/02/21 12:30 11/02/21 12:30 Temperature Pulse Rate 93 H 84 Pulse Rate [Left Brachial] Respiratory Rate Blood Pressure 227/103 Blood Pressure [Right Arm] O2 Sat by Pulse Oximetry 100 100 Oxygen Delivery Method FIO2% 11/02/21 12:45 11/02/21 12:50 11/02/21 12:50 Temperature Pulse Rate 84 87 Pulse Rate [Left Brachial] Respiratory Rate Blood Pressure 225/98 Blood Pressure [Right Arm] O2 Sat by Pulse Oximetry 100 100 Oxygen Delivery Method FIO2% 11/02/21 12:54 11/02/21 12:54 11/02/21 12:59 Temperature Pulse Rate 83 77 Pulse Rate [Left Brachial] Respiratory Rate Blood Pressure 215/97 Blood Pressure [Right Arm] O2 Sat by Pulse Oximetry 100 100 Oxygen Delivery Method FIO2% 11/02/21 12:59 11/02/21 13:00 11/02/21 13:00 Temperature Pulse Rate 79 Pulse Rate [Left Brachial] Respiratory Rate Blood Pressure 214/98 209/98 Blood Pressure [Right Arm] O2 Sat by Pulse Oximetry 100 Oxygen Delivery Method FIO2% 11/02/21 13:16 11/02/21 13:30 11/02/21 13:30 Temperature Pulse Rate 80 77 Pulse Rate [Left Brachial] Respiratory Rate 26 H Blood Pressure 213/95 Blood Pressure [Right Arm] O2 Sat by Pulse Oximetry 100 100 Oxygen Delivery Method FIO2% 11/02/21 13:45 11/02/21 14:00 11/02/21 14:00 Temperature Pulse Rate 72 74 Pulse Rate [Left Brachial] Respiratory Rate 26 H 24 Blood Pressure 211/94 Blood Pressure [Right Arm] O2 Sat by Pulse Oximetry 100 Oxygen Delivery Method FIO2% 11/02/21 14:15 11/02/21 14:18 11/02/21 14:18 Temperature Pulse Rate 90 80 Pulse Rate [Left Brachial] Respiratory Rate 28 H 25 H Blood Pressure 241/107 Blood Pressure [Right Arm] O2 Sat by Pulse Oximetry 99 100 Oxygen Delivery Method FIO2% 11/02/21 14:30 11/02/21 14:45 11/02/21 15:00 Temperature Pulse Rate 81 73 70 Pulse Rate [Left Brachial] Respiratory Rate 23 21 20 Blood Pressure Blood Pressure [Right Arm] O2 Sat by Pulse Oximetry 100 100 99 Oxygen Delivery Method FIO2% 11/02/21 15:04 11/02/21 15:04 11/02/21 15:15 Temperature Pulse Rate 73 69 Pulse Rate [Left Brachial] Respiratory Rate 20 18 Blood Pressure 198/92 Blood Pressure [Right Arm] O2 Sat by Pulse Oximetry 99 99 Oxygen Delivery Method FIO2% 11/02/21 15:30 11/02/21 15:31 11/02/21 15:31 Temperature Pulse Rate 67 68 Pulse Rate [Left Brachial] Respiratory Rate 20 20 Blood Pressure 166/74 Blood Pressure [Right Arm] O2 Sat by Pulse Oximetry 98 98 Oxygen Delivery Method FIO2% 11/02/21 15:45 11/02/21 16:00 11/02/21 16:00 Temperature Pulse Rate 67 67 Pulse Rate [Left Brachial] Respiratory Rate 20 18 Blood Pressure 167/79 Blood Pressure [Right Arm] O2 Sat by Pulse Oximetry 98 97 Oxygen Delivery Method FIO2% 11/02/21 16:15 11/02/21 16:30 11/02/21 16:30 Temperature Pulse Rate 69 100 H Pulse Rate [Left Brachial] Respiratory Rate 19 30 H Blood Pressure 175/82 Blood Pressure [Right Arm] O2 Sat by Pulse Oximetry 97 97 Oxygen Delivery Method FIO2% 11/02/21 16:45 11/02/21 17:00 11/02/21 17:01 Temperature Pulse Rate 76 72 Pulse Rate [Left Brachial] Respiratory Rate 26 H 23 Blood Pressure 173/76 Blood Pressure [Right Arm] O2 Sat by Pulse Oximetry 98 98 Oxygen Delivery Method FIO2% 11/02/21 17:01 11/02/21 17:15 11/02/21 17:30 Temperature Pulse Rate 74 68 70 Pulse Rate [Left Brachial] Respiratory Rate 22 19 27 H Blood Pressure Blood Pressure [Right Arm] O2 Sat by Pulse Oximetry 98 99 99 Oxygen Delivery Method FIO2% 11/02/21 18:06 11/02/21 18:00 11/02/21 18:00 Temperature 97.2 F L Pulse Rate 66 Pulse Rate [Left Brachial] Respiratory Rate 22 Blood Pressure 188/84 Blood Pressure [Right Arm] O2 Sat by Pulse Oximetry 100 Oxygen Delivery Method Room Air Room Air Room Air FIO2% 11/02/21 18:00 11/02/21 19:00 11/02/21 19:00 Temperature 97.2 F L 97.7 F 97.6 F Pulse Rate 62 Pulse Rate [Left Brachial] Respiratory Rate 22 18 18 Blood Pressure 166/72 Blood Pressure [Right Arm] 188/84 166/72 O2 Sat by Pulse Oximetry 100 100 100 Oxygen Delivery Method Room Air Room Air Room Air FIO2% 11/02/21 20:00 11/02/21 21:00 11/02/21 19:00 Temperature 97.7 F Pulse Rate 61 67 Pulse Rate [Left Brachial] Respiratory Rate 18 22 Blood Pressure 177/74 163/70 Blood Pressure [Right Arm] O2 Sat by Pulse Oximetry 100 100 Oxygen Delivery Method Room Air Room Air Room Air FIO2% 11/02/21 21:45 11/02/21 22:00 11/02/21 22:10 Temperature Pulse Rate 61 64 63 Pulse Rate [Left Brachial] Respiratory Rate 16 18 23 Blood Pressure 175/69 188/82 187/81 Blood Pressure [Right Arm] O2 Sat by Pulse Oximetry 100 98 100 Oxygen Delivery Method Room Air Room Air Room Air FIO2% 11/02/21 22:20 11/02/21 22:30 11/02/21 22:40 Temperature Pulse Rate 59 L 60 57 L Pulse Rate [Left Brachial] Respiratory Rate 17 17 17 Blood Pressure 187/90 180/79 176/71 Blood Pressure [Right Arm] O2 Sat by Pulse Oximetry 100 100 100 Oxygen Delivery Method Room Air Room Air Room Air FIO2% 11/02/21 22:50 11/02/21 23:00 11/02/21 23:30 Temperature 97.7 F Pulse Rate 55 L 56 L 59 L Pulse Rate [Left Brachial] Respiratory Rate 17 18 17 Blood Pressure 183/80 176/78 171/79 Blood Pressure [Right Arm] O2 Sat by Pulse Oximetry 100 100 100 Oxygen Delivery Method Room Air Room Air Room Air FIO2% 11/03/21 00:00 11/03/21 00:30 11/03/21 01:00 Temperature 97.7 F Pulse Rate 59 L 68 68 Pulse Rate [Left Brachial] Respiratory Rate 17 21 18 Blood Pressure 172/78 157/70 140/65 Blood Pressure [Right Arm] O2 Sat by Pulse Oximetry 100 100 100 Oxygen Delivery Method Room Air Room Air Room Air FIO2% 11/03/21 02:00 11/03/21 03:00 11/03/21 04:00 Temperature 97.8 F 97.7 F Pulse Rate 68 65 64 Pulse Rate [Left Brachial] Respiratory Rate 18 16 18 Blood Pressure 141/65 147/67 170/78 Blood Pressure [Right Arm] O2 Sat by Pulse Oximetry 98 100 100 Oxygen Delivery Method Room Air Room Air Room Air FIO2% 11/03/21 05:00 11/03/21 06:00 11/03/21 06:13 Temperature 97.6 F Pulse Rate 64 58 L 64 Pulse Rate [Left Brachial] Respiratory Rate 16 18 Blood Pressure 165/79 168/79 Blood Pressure [Right Arm] O2 Sat by Pulse Oximetry 100 100 97 Oxygen Delivery Method Room Air Room Air FIO2% 11/02/21 23:00 11/03/21 07:00 11/03/21 08:00 Temperature Pulse Rate Pulse Rate [Left Brachial] Respiratory Rate Blood Pressure Blood Pressure [Right Arm] O2 Sat by Pulse Oximetry Oxygen Delivery Method Room Air Room Air Room Air FIO2% 11/03/21 07:00 11/03/21 08:00 11/03/21 08:45 Temperature 98.6 F Pulse Rate 68 63 86 Pulse Rate [Left Brachial] Respiratory Rate 20 22 26 H Blood Pressure 178/77 174/74 120/80 Blood Pressure [Right Arm] O2 Sat by Pulse Oximetry 99 99 100 Oxygen Delivery Method Room Air Room Air Room Air FIO2% 11/03/21 10:00 11/03/21 11:00 11/03/21 12:00 Temperature 97.6 F Pulse Rate 66 63 67 Pulse Rate [Left Brachial] Respiratory Rate 18 21 21 Blood Pressure 168/72 162/74 178/82 Blood Pressure [Right Arm] O2 Sat by Pulse Oximetry 99 99 99 Oxygen Delivery Method Room Air Room Air Room Air FIO2% 11/03/21 13:10 11/03/21 13:00 11/03/21 10:40 Temperature 97.5 F L Pulse Rate 78 70 Pulse Rate [Left Brachial] Respiratory Rate 18 20 Blood Pressure 170/72 168/75 Blood Pressure [Right Arm] O2 Sat by Pulse Oximetry 100 98 100 Oxygen Delivery Method Room Air Room Air FIO2% 11/03/21 14:00 11/03/21 15:00 11/03/21 16:00 Temperature 98.0 F Pulse Rate 70 68 68 Pulse Rate [Left Brachial] Respiratory Rate 22 20 19 Blood Pressure 178/88 180/80 177/83 Blood Pressure [Right Arm] O2 Sat by Pulse Oximetry 99 97 97 Oxygen Delivery Method Room Air Room Air Room Air FIO2% 11/03/21 17:00 11/03/21 18:00 11/03/21 18:00 Temperature Pulse Rate 63 65 Pulse Rate [Left Brachial] 65 Respiratory Rate 21 20 20 Blood Pressure 192/89 178/81 Blood Pressure [Right Arm] 178/81 O2 Sat by Pulse Oximetry 98 99 99 Oxygen Delivery Method Room Air Room Air Room Air FIO2% 11/03/21 18:10 11/03/21 18:15 11/03/21 18:10 Temperature Pulse Rate 64 65 Pulse Rate [Left Brachial] 64 Respiratory Rate 19 18 19 Blood Pressure 173/81 158/74 Blood Pressure [Right Arm] 173/81 O2 Sat by Pulse Oximetry 98 98 98 Oxygen Delivery Method Room Air Room Air Room Air FIO2% 11/03/21 18:15 11/03/21 18:20 11/03/21 18:30 Temperature Pulse Rate Pulse Rate [Left Brachial] 65 66 71 Respiratory Rate 18 19 19 Blood Pressure Blood Pressure [Right Arm] 158/74 153/72 147/65 O2 Sat by Pulse Oximetry 98 97 97 Oxygen Delivery Method Room Air Room Air Room Air FIO2% 11/03/21 18:40 11/03/21 19:00 11/03/21 20:34 Temperature Pulse Rate 66 76 Pulse Rate [Left Brachial] 67 Respiratory Rate 17 18 Blood Pressure 141/61 Blood Pressure [Right Arm] 152/67 O2 Sat by Pulse Oximetry 97 97 98 Oxygen Delivery Method Room Air Room Air FIO2% 11/03/21 20:35 11/03/21 20:00 11/03/21 19:00 Temperature 97.9 F Pulse Rate 74 Pulse Rate [Left Brachial] Respiratory Rate 20 Blood Pressure 163/72 Blood Pressure [Right Arm] O2 Sat by Pulse Oximetry 96 Oxygen Delivery Method Room Air Room Air Room Air FIO2% 11/03/21 21:00 11/03/21 22:00 11/03/21 23:00 Temperature Pulse Rate 79 65 62 Pulse Rate [Left Brachial] Respiratory Rate 20 16 16 Blood Pressure 157/72 141/67 119/56 Blood Pressure [Right Arm] O2 Sat by Pulse Oximetry 96 95 95 Oxygen Delivery Method Room Air Room Air Room Air FIO2% 11/04/21 00:00 11/04/21 01:00 11/04/21 02:00 Temperature 97.7 F Pulse Rate 63 67 58 L Pulse Rate [Left Brachial] Respiratory Rate 16 20 16 Blood Pressure 133/64 143/65 124/58 Blood Pressure [Right Arm] O2 Sat by Pulse Oximetry 96 96 96 Oxygen Delivery Method Room Air Room Air Room Air FIO2% 11/04/21 03:00 11/04/21 04:00 11/04/21 05:00 Temperature 97.7 F 97.7 F Pulse Rate 64 61 57 L Pulse Rate [Left Brachial] Respiratory Rate 16 16 16 Blood Pressure 133/64 149/77 152/72 Blood Pressure [Right Arm] O2 Sat by Pulse Oximetry 96 96 96 Oxygen Delivery Method Room Air Room Air Room Air FIO2% 11/04/21 06:01 11/04/21 06:00 11/04/21 08:40 Temperature Pulse Rate 61 62 Pulse Rate [Left Brachial] Respiratory Rate 16 Blood Pressure 155/74 Blood Pressure [Right Arm] O2 Sat by Pulse Oximetry 99 100 Oxygen Delivery Method Room Air Room Air FIO2% 11/04/21 07:00 11/04/21 07:00 11/04/21 08:00 Temperature 98.0 F Pulse Rate 61 67 Pulse Rate [Left Brachial] Respiratory Rate 15 21 Blood Pressure 154/82 149/68 Blood Pressure [Right Arm] O2 Sat by Pulse Oximetry 95 96 Oxygen Delivery Method Room Air Room Air Room Air FIO2% 11/04/21 09:00 11/04/21 10:00 11/04/21 11:00 Temperature Pulse Rate 62 63 65 Pulse Rate [Left Brachial] Respiratory Rate 18 19 20 Blood Pressure 158/73 165/80 156/92 Blood Pressure [Right Arm] O2 Sat by Pulse Oximetry 96 97 96 Oxygen Delivery Method Room Air Room Air Room Air FIO2% 11/04/21 12:00 11/04/21 13:00 11/04/21 14:00 Temperature 98.2 F Pulse Rate 60 67 69 Pulse Rate [Left Brachial] Respiratory Rate 18 18 16 Blood Pressure 164/78 164/77 139/63 Blood Pressure [Right Arm] O2 Sat by Pulse Oximetry 100 97 94 L Oxygen Delivery Method Room Air Room Air Room Air FIO2% 11/04/21 15:00 11/04/21 16:00 11/04/21 17:00 Temperature 98.5 F Pulse Rate 70 100 H 68 Pulse Rate [Left Brachial] Respiratory Rate 22 24 20 Blood Pressure 150/68 147/88 149/68 Blood Pressure [Right Arm] O2 Sat by Pulse Oximetry 95 95 95 Oxygen Delivery Method Room Air Room Air Room Air FIO2% 11/04/21 18:00 11/04/21 19:00 11/04/21 19:00 Temperature 97.8 F Pulse Rate 73 67 Pulse Rate [Left Brachial] Respiratory Rate 21 20 Blood Pressure 152/74 144/68 Blood Pressure [Right Arm] O2 Sat by Pulse Oximetry 95 95 Oxygen Delivery Method Room Air Room Air Room Air FIO2% 11/04/21 20:00 11/04/21 20:32 11/04/21 20:32 Temperature Pulse Rate 66 65 Pulse Rate [Left Brachial] Respiratory Rate 20 Blood Pressure 143/68 Blood Pressure [Right Arm] O2 Sat by Pulse Oximetry 95 97 Oxygen Delivery Method Room Air Room Air FIO2% 21 11/04/21 21:00 11/04/21 22:00 11/04/21 23:00 Temperature Pulse Rate 70 64 66 Pulse Rate [Left Brachial] Respiratory Rate 19 18 19 Blood Pressure 161/73 155/67 174/84 Blood Pressure [Right Arm] O2 Sat by Pulse Oximetry 95 97 98 Oxygen Delivery Method Room Air Room Air Room Air FIO2% 11/05/21 00:00 11/05/21 01:00 11/05/21 02:00 Temperature 97.6 F Pulse Rate 66 67 66 Pulse Rate [Left Brachial] Respiratory Rate 18 16 16 Blood Pressure 175/77 167/81 185/88 Blood Pressure [Right Arm] O2 Sat by Pulse Oximetry 98 95 98 Oxygen Delivery Method Room Air Room Air Room Air FIO2% 11/05/21 03:00 11/05/21 04:00 11/05/21 02:40 Temperature 97.7 F Pulse Rate 67 72 86 Pulse Rate [Left Brachial] Respiratory Rate 16 18 18 Blood Pressure 181/86 176/80 157/86 Blood Pressure [Right Arm] O2 Sat by Pulse Oximetry 97 97 97 Oxygen Delivery Method Room Air Room Air Room Air FIO2% 11/05/21 05:00 11/05/21 05:36 11/05/21 06:00 Temperature Pulse Rate 64 60 67 Pulse Rate [Left Brachial] Respiratory Rate 18 18 Blood Pressure 169/80 179/81 Blood Pressure [Right Arm] O2 Sat by Pulse Oximetry 97 96 95 Oxygen Delivery Method Room Air Room Air FIO2% 11/05/21 07:00 11/05/21 07:00 Temperature 97.9 F Pulse Rate 58 L Pulse Rate [Left Brachial] Respiratory Rate 16 Blood Pressure 178/81 Blood Pressure [Right Arm] O2 Sat by Pulse Oximetry 97 Oxygen Delivery Method Room Air Room Air FIO2% Labs: Laboratory Last Values WBC 5.8 X10^3/uL (3.6-10.0) 11/05/21 05:00 RBC 3.24 X10^6/uL (4.7-6.0) L 11/05/21 05:00 Hgb 9.6 g/dL (13.5-18.0) L 11/05/21 05:00 Hct 27.7 % (42.0-54.0) L 11/05/21 05:00 MCV 85.5 fL (80.0-100.0) 11/05/21 05:00 MCH 29.6 pg (27.0-34.0) 11/05/21 05:00 MCHC 34.6 g/dL (33.0-35.0) 11/05/21 05:00 RDW 20.4 % (11.6-16.5) H 11/05/21 05:00 Plt Count 204 X10^3/uL (150.0-450.0) 11/05/21 05:00 Plt Count Comment Adequate (ADEQUATE) 11/05/21 05:00 MPV 7.4 fL (7.4-11.0) 11/05/21 05:00 Neut % (Auto) 75.1 % (42.0-75.0) H 11/05/21 05:00 Lymph % (Auto) 13.2 % (21.0-51.0) L 11/05/21 05:00 [place] % (Auto) 8.4 % (0.0-13.0) 11/05/21 05:00 Eos % (Auto) 2.6 % (0.9-2.9) 11/05/21 05:00 Baso % (Auto) 0.7 % (0.2-1.0) 11/05/21 05:00 Neut # (Auto) 4.4 x10^3/uL (2.2-4.8) 11/05/21 05:00 Lymph # (Auto) 0.8 X10^3/uL (1.3-2.9) L 11/05/21 05:00 [place] # (Auto) 0.5 x10^3/uL (0.3-0.8) 11/05/21 05:00 Eos # (Auto) 0.2 x10^3/uL (0.0-0.2) 11/05/21 05:00 Baso # (Auto) 0.0 X10^3/uL (0.0-0.1) 11/05/21 05:00 Absolute Nucleated RBC 0.0 /100WBC 11/05/21 05:00 Plt Morphology Comment Normal (NORMAL) 11/05/21 05:00 RBC Morphology Abnormal (NORMAL) 11/05/21 05:00 Anisocytosis 1+ A 11/05/21 05:00 PT 14.4 SECONDS (11.8-14.3) 11/03/21 07:40 INR Target Range - 11/03/21 07:40 INR 1.16 (0.8-1.3) 11/03/21 07:40 APTT 33.9 SECONDS (22.9-36.5) 11/03/21 07:40 PTT Comment - 11/03/21 07:40 Sodium 133 mmol/L (136-145) L 11/05/21 05:00 Corrected Sodium TNP 11/05/21 05:00 Potassium 3.4 mmol/L (3.5-5.1) L 11/05/21 05:00 Chloride 100 mmol/L (98-107) 11/05/21 05:00 Carbon Dioxide 27.5 mmol/L (21-32) 11/05/21 05:00 BUN 27 mg/dL (7-18) H 11/05/21 05:00 Creatinine 2.04 mg/dL (0.70-1.30) H 11/05/21 05:00 Est GFR (MDRD) Af Amer 41 (>60) L 11/05/21 05:00 Est GFR (MDRD) Non-Af 34 (>60) L 11/05/21 05:00 Glucose 94 mg/dL (65-99) 11/05/21 05:00 Calcium 7.1 mg/dL (8.5-10.1) L 11/05/21 05:00 Corrected Calcium 8.9 mg/dL (8.5-10.1) 11/05/21 05:00 Magnesium 2.1 mg/dL (1.7-2.9) 11/04/21 04:41 Iron 27 ug/dL (50-175) L 11/02/21 13:13 Transferrin 115 mg/dL (202-364) L 11/02/21 13:13 Ferritin 410 ng/mL (26-388) H 11/02/21 13:13 Total Bilirubin 0.40 mg/dL (0.2-1.0) 11/05/21 05:00 AST 10 Units/L (15-37) L 11/05/21 05:00 ALT 7 Units/L (12-78) L 11/05/21 05:00 Alkaline Phosphatase 93 Units/L (46-116) 11/05/21 05:00 Creatine Kinase 40 Units/L (39-308) 11/03/21 07:40 Troponin I High Sens 60.4 ng/L (4.0-60.0) H* 11/03/21 07:40 B-Natriuretic Peptide 1760 pg/mL (0-79) H* 11/04/21 04:41 Total Protein 5.5 g/dL (6.4-8.2) L 11/05/21 05:00 Albumin 1.8 g/dL (3.4-5.0) L 11/05/21 05:00 Globulin 3.7 g/dL (2.5-4.5) 11/05/21 05:00 Albumin/Globulin Ratio 0.5 Ratio (1.1-2.1) L 11/05/21 05:00 Vitamin B12 258 pg/mL (193-986) 11/02/21 13:13 Folate 6.3 ng/mL (>8.6) L 11/02/21 13:13 Free T4 1.08 ng/dL (0.76-1.46) 11/02/21 13:13 TSH 3rd Generation 2.237 uIU/mL (0.358-3.74) 11/02/21 13:13 Specimen Type Random urine 11/03/21 04:25 Urine Color Straw (YELLOW) 11/03/21 04:25 Urine Appearance Clear (CLEAR) 11/03/21 04:25 Urine pH 5.0 (5.0 - 8.0) 11/03/21 04:25 Ur Specific [place] 1.010 (1.000-1.030) 11/03/21 04:25 Urine Protein Negative (NEGATIVE) 11/03/21 04:25 Urine Glucose (UA) Negative (NEGATIVE) 11/03/21 04:25 Urine Ketones Negative (NEGATIVE) 11/03/21 04:25 Urine Blood Negative (NEGATIVE) 11/03/21 04:25 Urine Nitrite Negative (NEGATIVE) 11/03/21 04:25 Urine Bilirubin Negative (NEGATIVE) 11/03/21 04:25 Urine Urobilinogen Normal (NORMAL) 11/03/21 04:25 Ur Leukocyte Esterase Negative (NEGATIVE) 11/03/21 04:25 Urine RBC 0-2 /HPF (0-3) 11/02/21 14:15 Urine WBC None seen /HPF (0-5) 11/02/21 14:15 Ur Squamous Epith Cells Rare /HPF (NEGATIVE) 11/02/21 14:15 Urine Bacteria Trace /HPF (NEGATIVE) 11/02/21 14:15 Ur Culture Indicated? No/not indicated 11/02/21 14:15 Stool Description [address] 11/04/21 09:40 Stl Occult Blood (IFOB) Negative (NEGATIVE) 11/04/21 09:40 SARS-CoV-2 (PCR) Negative (NEGATIVE) 11/02/21 13:45 Influenza Type A (PCR) Negative (NEGATIVE) 11/02/21 13:45 Influenza Type B (PCR) Negative (NEGATIVE) 11/02/21 13:45 RSV (PCR) Negative (NEGATIVE) 11/02/21 13:45 Blood Type O POSITIVE 11/02/21 14:34 Antibody Screen Negative 11/02/21 14:34 Crossmatch See Detail 11/02/21 14:34 Reason For Visit: ANEMIA, CHF, HYPERTENSION Discharge Date Discharge Date: 11/05/21 Discharge Diagnosis All Active Problems (Updated 11/04/21 @ 15:27 by Pramod Eisenberg) CHF exacerbation (Acute) Left inguinal pain (Acute) Mass of upper lobe of right lung (Acute) Loculated pleural effusion (Acute) Left inguinal hernia (Acute) Anemia (Acute) Anemia (Acute) Elevated brain natriuretic peptide (BNP) level (Acute) COPD (chronic obstructive pulmonary disease) (Acute) Chronic pleural effusion (Acute) Bacteremia due to Streptococcus pneumoniae (Acute) Chest pain, rule out acute myocardial infarction (Acute) Congestive heart failure (CHF) (Acute) Pleural effusion (Acute) Hypertension, uncontrolled (Acute) CAD (coronary artery disease) (Acute) CKD (chronic kidney disease) stage 4, GFR 15-29 ml/min (Acute) Anemia in chronic kidney disease (CKD) (Acute) Acute chest pain (Acute) Abnormal ECG (Acute) Pneumonia (Acute) Acute renal failure (Acute) Acute dehydration (Acute) Chest pain (Acute) Plan of Treatment: Continue with present treatment and follow up plan. Pt is to keep follow up appointment as instructed and take medications as ordered. Discharge Medications Discharge Medications: No Known Drug Allergies Allergy (Verified 09/13/19 13:55) New Prescriptions carvedilol 12.5 mg tablet 12.5 mg PO BID 30 days #60 tabs 11/05/21 [Rx] clonidine HCl 0.2 mg tablet 0.2 mg PO BID 30 days #60 tabs 11/05/21 [Rx] furosemide 40 mg tablet 40 mg PO QAM 30 days #30 tabs 11/05/21 [Rx] nifedipine 30 mg tablet,extended release 1 tab PO QDAY 30 days #30 tabs 11/05/21 [Rx] Discharge Disposition Assessment: No acute distress noted at discharge. Discharge Disposition: HOME Discharge Condition: STABLE Discharge Plan Discharge Plan Hospital Course: PT IS A 76 YEAR OLD MALE PAST MEDICAL HISTORY OF COPD, HYPERTENSION, CHF, ADMITTED FOR SYMPTOMATIC ANEMIA AND CHF EXACERBATION. HIS HOSPITAL/TREATMENT COURSE INCLUDED: SUPPLEMENTAL O2, RESPIRATORY THERAPY WITH BRONCHODILATORS, IV LASIX 40MG DAILY, AND HOME BLOOD PRESSURE MEDICATION. HE RESPONDED WELL TO TREATMENTS AND ON DAY OF DISCHARGE DID NOT REPORT ANY SHORTNESS OF BREATH OR SWELLING. HE DID RECEIVE 2 UNITS OF PACKED RED BLOOD CELLS DURING STAY AND HIS HEMOGLOBIN HAS REMAINED STABLE. LABS/IMAGING: WBC 5.8, HGB 9.6, PLT 204, NA 133, K 3.4, CREATININE 2.04, GLUCOSE 94, PT DID AGAIN REFUSED FURTHER CARDIAC WORKUP WHILE INPATIENT BUT DID STATE HE WOULD SEE LAMINATION INSPECTOR OUTPATIENT. CASE MANAGEMENT TO ARRANGE REFERRAL TO DR CASTRO. PT DISCHARGED IN STABLE CONDITION, INSTRUCTED TO FOLLOW UP WITH PCP IN 1 WEEK AND CARDIOLOGY OUTPATIENT. Patient Disposition: HOME HEALTH SERVICE Condition: Stable Health Concerns: Post Hospitalization: new medications and changes needed to prevent readmission or further decline. Pt educated and given instructions on all concerns. Care Plan Goals: Problem: Chest Pain Goals: Chest pain improving/resolved Instructions: Contact your physician or report to the closest Emergency Department if your chest pain returns or worsens. Take medications as pres cribed. Follow up with your primary doctor as instructed. Plan of Treatment: Continue with present treatment and follow up plan. Pt is to keep follow up appointment as instructed and take medications as ordered. Assessment: No acute distress noted at discharge. Prescriptions: New carvedilol 12.5 mg Tablet 12.5 mg PO BID 30 Days Qty: 60 0RF clonidine HCl 0.2 mg Tablet 0.2 mg PO BID 30 Days Qty: 60 0RF Continued hydrocodone-acetaminophen 5-325 mg tablet 1 tab PO TID MDD 3 Qty: 20 0RF Advair HFA 230-21 mcg/actuation HFA aerosol inhaler 1 puff INHALATION BID codeine-guaifenesin [Virtussin AC] 10-100 mg/5 mL liquid 10 ml PO BID Label Comments: TAKE 10 ML BY MOUTH TWICE DAILY NEEDED FOR COUGH. MAY CAUSE DROWSINESS. AVOID DRIVING albuterol sulfate 2.5 mg /3 mL (0.083 %) solution for nebulization 2.5 mg inhalation PRN PRN Label Comments: [NO ORIGINAL SIG] furosemide 40 mg tablet 40 mg PO QAM 30 Days Qty: 30 0RF nifedipine 30 mg tablet extended release 1 tab PO QDAY 30 Days Qty: 30 0RF Discontinued ceftriaxone 1 gram Recon Soln 1 g IV QDAY Qty: 7 0RF Rx Instructions: Take Rocephin 1gm IV daily for a total of 14 days. 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 11/05/21@[phone]) Pramod Eisenberg [STAFF PHYSICIAN] - 11/12/21 10:05 am Instructions Instructions: Acute Kidney Injury, Adult, Blood Transfusion, Adult, Sctg-zk-Shkf, Anemia, Heart Failure, Self Care, Tppr-tg-Uymm, Nonspecific Chest Pain, Adult, Jwax-xl-Iobd, Hypertension, Adult, Wuql-sv-Dwhq, Pleural Effusion, Blood Transfusion, Adult, Care After, Aqfg-um-Kdko, Tobacco Use Disorder, Form - Daily Weight Record Stand Alone Forms: Precautions for [place] [id number], [facility], Patient Portal, Social Distancing Patient Education Addl Reference Links: CHF exacerbation [email or web address] veGenderCode.dn=Male&age.v.v=76&age.v.u=a&performer=PROV&informationRecipient=PA T&performer.languageCode.c=en&mainSearchCriteria.v.y=[id number]&mainSearchCriteri a.v.cs=[id number]&mainSearch Criteria.v.dn=CHF+exacerbation&mainSearchCriteria.v.n0=929&mainSearchCriteria.v. dn1=CHF+exacerbation&mainSearchCriteria.v.r1=456.0&mainSearchCriteria.v.cs2=2.16 .[id number]&mainSearchCriteria.v .dn2=CHF+exacerbation&mainSearchCriteria.v.c3=I50.9&mainSearchCriteria.v.cs3=2.1 [id number]&mainSearchCriteria.v.dn3=CHF+exacerbation&mainSearchCriteria .v.c4=85&mainSearchCriteria.v.dn4=CHF+exacerbation
[2021-11-05] MEDS: LASIX IVP SCH (08:26)
[2021-11-05] MEDS: COREG TAB 12.5 MG PO SCH (08:27)
[2021-11-05] MEDS: CATAPRES TAB 0.2 MG PO SCH (08:28)
[2021-11-05] MEDS: LOVENOX INJ 30 MG SYR SC SCH (08:28)
[2021-11-05] MEDS: PROCARDIA XL PO SCH (08:28)
[2021-11-05 10:10] VITALS: BP 149/73
== END 2021-11-05 12:50 | disposition home health service (06) | DRG 811 ==
LOC: ER 11:21 → ICU 16:56
PROVIDERS: ADMIT Internal Medicine; ATTEND Family Medicine
DX: Z20.822 Contact with and (suspected) exposure to COVID-19; J90 Pleural effusion, not elsewhere classified; I25.10 Atherosclerotic heart disease of native coronary artery without angina pectoris; J18.8 Other pneumonia, unspecified organism; R06.02 Shortness of breath; R91.8 Other nonspecific abnormal finding of lung field; I11.0 Hypertensive heart disease with heart failure; N18.4 Chronic kidney disease, stage 4 (severe); D64.89 Other specified anemias; I50.9 Heart failure, unspecified; R79.89 Other specified abnormal findings of blood chemistry; R94.31 Abnormal electrocardiogram [ECG] [EKG]; J44.9 Chronic obstructive pulmonary disease, unspecified

== ENCOUNTER 2021-11-10 19:41 | Observation (INO) ==
[2021-11-10 20:34] VITALS: BMI 19.0
--- NOTE | 2021-11-10 20:53 | DR.SOBA ---
HPI Time Seen Time Seen by Provider: 11/10/21 20:50 Primary Care Physician Primary Care Physician: Elgin HPI Comment HPI Comment: A 76 y/o male presenting with c/o SOB this morning. He has worsening of pedal edma to his legs. He denies chest pain or palpitations. He was admitted here last week and was d/c home on 11/05/21. He is scheduled to see his PCP on 11/14/21. He has underlying hx. of CHF, CABG. Complaints Chief Complaint:: SOB becoming severe 0930 hrs, bilateral pedal edema. HX of CHF, CABG 2014. Denies pain only SOB COVID-19 Coronavirus risk:travel/contact w/high risk person: No Has patient experienced Coronavirus symptoms: No Coronavirus symptoms experienced: Shortness of Breath Reviewed Nurses Notes Reviewed: Yes Source History Provided: Patient Mode of Arrival Mode of Arrival: Wheelchair Timing Onset of Chief Complaint: 11/10/21 Duration Duration: Weeks Context Onset:: At Rest PE Risk Factors:: None History of:: CHF Currently on:: Neither Prehospital Care:: Furosemide Modifying Factors Worsens:: Exertion Improves:: Nothing PMH PMH Past Medical History: Yes Past Medical History: Anemia, CHF, COPD and Hypertension Past Surgical History: Yes Surgical History: Appendectomy and CABG/Valve Surgery Family History History of Family Medical Conditions: Yes Family Medical History: Coronary Artery Disease Social History Does patient currently use any type of tobacco product: No Have you used tobacco products in the last 12 months: No Type of Tobacco Use: None Does any household member use tobacco: No Alcohol Use: None Do you use any recreational Drugs:: No Lives With: Family Lives Where: Home Travel Risk Coronavirus risk:travel/contact w/high risk person: No Has patient experienced Coronavirus symptoms: No Infectious screening In the last 2 months have you had wt loss of >10#?: NO Have you had fever, night sweats or hemotysis?: No Have you traveled outside the country in the last 6 months?: No Isolation: Standard ROS Review of Systems Constitutional: No Symptoms Reported Eyes: No Symptoms Reported ENTM: No Symptoms Reported Respiratoy: Short of Breath Cardiovascular: Edema Gastrointestinal/Abdominal: No Symptoms Reported Genitourinary: No Symptoms Reported Neurological: No Symptoms Reported Musculoskeletal: No Symptoms Reported Integumentary: No Symptoms Reported Hematologic/Lymphatic: No Symptoms Reported Endocrine: No Symptoms Reported Psychiatric: No Symptoms Reported All Other Systems: Reviewed and Negative PE Vital Signs Vitals: Temperature 97.3 F Pulse Rate 76 Respiratory Rate 33 Blood Pressure [Right Arm] 152/67 Blood Pressure 166/74 O2 Sat by Pulse Oximetry 97 General Limitations: No Limitations General Appearance: Alert and In No Apparent Distress Head Head Exam: Normal Inspection, Atraumatic and Normocephalic Eyes Eye exam: Normal Appearance and EOMI ENT ENT Exam: Normal Exam, Normal Oropharynx, Normal External Ear Exam and Mucous Membranes Moist Neck Neck Exam: Normal Inspection, Full ROM and Trachea Midline Chest Chest Inspection: Normal Inspection and Symmetric Chest Wall Rise Respiratory Respiratory Exam: Normal Lung Sounds Bilat Cardiovascular Cardiovascular Exam: Regular Rate, Normal Rhythm, Normal Heart Sounds, +S1 and +S2 Abdominal Exam Abdominal Exam: Normal Inspection, Normal Bowel Sounds and Soft Extremities Extremities Exam: Normal Inspection and Edema (3+) Back Back Exam: Normal Inspection and Full ROM Neurologic Neurological Exam: Alert and Oriented X3 Psychiatric Psychiatric Exam: Normal Affect and Normal Mood Skin Skin Exam: Dry, Intact and Normal Color COURSE Treatment Treatment: lab. results wer reviewed with him. Recommendation for admission in house, for continued treatment was made and he agrees. call worker person provider (Dr. Karen schulte) was called and we spoke about the presentation and diagnostic test reports. Dr. Smith agrees with admission and current care. So far, he has 600 ml of urine output. Reevaluation 1st: Improved Education/Counseling Education/Counseling: Patient, Family, Education and Counseling Educated On: Treatment, Diagnosis, Prognosis and Needs for Follow Up ROR Labs Reviewed Result Diagrams: 11/10/21 20:56 11/10/21 20:56 Laboratory: WBC 7.6 X10^3/uL (3.6-10.0) 11/10/21 20:56 RBC 3.30 X10^6/uL (4.7-6.0) L 11/10/21 20:56 Hgb 9.8 g/dL (13.5-18.0) L 11/10/21 20:56 Hct 29.0 % (42.0-54.0) L 11/10/21 20:56 MCV 87.8 fL (80.0-100.0) 11/10/21 20:56 MCH 29.8 pg (27.0-34.0) 11/10/21 20:56 MCHC 33.9 g/dL (33.0-35.0) 11/10/21 20:56 RDW 19.3 % (11.6-16.5) H 11/10/21 20:56 Plt Count 219 X10^3/uL (150.0-450.0) 11/10/21 20:56 MPV 7.5 fL (7.4-11.0) 11/10/21 20:56 Neut % (Auto) 77.2 % (42.0-75.0) H 11/10/21 20:56 Lymph % (Auto) 11.0 % (21.0-51.0) L 11/10/21 20:56 [place] % (Auto) 9.2 % (0.0-13.0) 11/10/21 20:56 Eos % (Auto) 1.8 % (0.9-2.9) 11/10/21 20:56 Baso % (Auto) 0.8 % (0.2-1.0) 11/10/21 20:56 Neut # (Auto) 5.9 x10^3/uL (2.2-4.8) H 11/10/21 20:56 Lymph # (Auto) 0.8 X10^3/uL (1.3-2.9) L 11/10/21 20:56 [place] # (Auto) 0.7 x10^3/uL (0.3-0.8) 11/10/21 20:56 Eos # (Auto) 0.1 x10^3/uL (0.0-0.2) 11/10/21 20:56 Baso # (Auto) 0.1 X10^3/uL (0.0-0.1) 11/10/21 20:56 Absolute Nucleated RBC 0.0 /100WBC 11/10/21 20:56 Sodium 134 mmol/L (136-145) L 11/10/21 20:56 Corrected Sodium 135 mmol/L (136-145) L 11/10/21 20:56 Potassium 3.5 mmol/L (3.5-5.1) 11/10/21 20:56 Chloride 101 mmol/L (98-107) 11/10/21 20:56 Carbon Dioxide 24.6 mmol/L (21-32) 11/10/21 20:56 BUN 26 mg/dL (7-18) H 11/10/21 20:56 Creatinine 1.92 mg/dL (0.70-1.30) H 11/10/21 20:56 Est GFR (MDRD) Af Amer 44 (>60) L 11/10/21 20:56 Est GFR (MDRD) Non-Af 37 (>60) L 11/10/21 20:56 Glucose 130 mg/dL (65-99) H 11/10/21 20:56 Calcium 7.4 mg/dL (8.5-10.1) L 11/10/21 20:56 Corrected Calcium 8.8 mg/dL (8.5-10.1) 11/10/21 20:56 Total Bilirubin 0.50 mg/dL (0.2-1.0) 11/10/21 20:56 AST 21 Units/L (15-37) 11/10/21 20:56 ALT 19 Units/L (12-78) 11/10/21 20:56 Alkaline Phosphatase 115 Units/L (46-116) 11/10/21 20:56 Creatine Kinase 40 Units/L (39-308) 11/10/21 20:56 Troponin I High Sens 114.0 ng/L (4.0-60.0) H* 11/10/21 20:56 B-Natriuretic Peptide 4870 pg/mL (0-79) H* 11/10/21 20:56 Total Protein 6.3 g/dL (6.4-8.2) L 11/10/21 20:56 Albumin 2.2 g/dL (3.4-5.0) L 11/10/21 20:56 Globulin 4.1 g/dL (2.5-4.5) 11/10/21 20:56 Albumin/Globulin Ratio 0.5 Ratio (1.1-2.1) L 11/10/21 20:56 SARS-CoV-2 (PCR) Negative (NEGATIVE) 11/10/21 22:45 Influenza Type A (PCR) Negative (NEGATIVE) 11/10/21 22:45 Influenza Type B (PCR) Negative (NEGATIVE) 11/10/21 22:45 RSV (PCR) Negative (NEGATIVE) 11/10/21 22:45 Opioid Opioid Risk Tool Age (Nestor box if 16-45): No History of Preadolescent Sexual Abuse: No Total: 0 Total Score Risk Category: Low Risk Copyright: César BURT predicting aberrant behaviors Discharge Plan Diagnosis Discharge Problem: Chronic pleural effusion, CAD (coronary artery disease), Anemia in chronic kidney disease (CKD) CHF exacerbation Qualifiers: Heart failure type: unspecified Qualified Code(s): I50.9 - Heart failure, uns pecified COPD (chronic obstructive pulmonary disease) Qualifiers: COPD type: chronic bronchitis Chronic bronchitis type: simple Qualified Code(s): J41.0 - Simple chronic bronchitis CKD (chronic kidney disease) stage 3, GFR 30-59 ml/min Qualifiers: Chronic kidney disease stage 3 subtype: stage 3b (GFR 30-44) Qualified Code(s): N18.32 - Chronic kidney disease, stage 3b Discharge Plan Patient Disposition: ADMITTED INPATIENT Condition: Stable Orders to Discharge Patient Discharge Orders: Transfer (Routine); Ordered 11/11/21 Ordered By: JOHNSON HIGHTOWER ADDITIONAL NOTES Additional Notes Additional Notes: Name: KIERA JALLOH CAcct#: [id number]: [id number]: [id number]: MLocation: EROrder Number(s): [id number](s):CHEST, 1 VIEW Ordering Physician: JOHNSON HIGHTOWER Primary Care: NFDJoselito Service Date: 11/10/21 Service Time: 2044 HISTORY shortness of breath HX: Renal disease.brSX: Bypass, Appendectomy STUDY CHEST, 1 VIEW COMPARISON 11/05/2021 FINDINGS The trachea is midline. The cardiac silhouette is unremarkable. Changes of prior CABG surgery. COPD. Loculated left pleural effusion. Underlying atelectasis or consolidation suspected. No pneumothoraxthe bony thorax is unremarkable. IMPRESSION COPD. Loculated left pleural effusion with suspected underlying lower lobe infiltrate and/or atelectasis. No significant change from 11/05/2021. Electronically signed by: Steven Ascencio (Nov 10, 2021 21:08:32) Report Electronically signed: 11/10/[id number] CC: Johnson Hightower
--- NOTE | 2021-11-10 21:10 | RAD ---
HISTORYshortness of breath HX: Renal disease.brSX: Bypass, AppendectomySTUDYCHEST, 1 [id number]/13/2022FINDINGSThe trachea is midline. The cardiac silhouette is unremarkable. Changes of prior CABG surgery. COPD. Loculated left pleural effusion. Underlying atelectasis or consolidation suspected. No pneumothoraxthe bony thorax is unremarkable.IMPRESSIONCOPD.Loculated left pleural effusion with suspected underlying lower lobe infiltrate and/or atelectasis.No significant change from 11/05/2021.Electronically signed by: Steven Ascencio (Nov 10, 2021 21:08:32)
[2021-11-10] MEDS ORDERED: LASIX IVP ONE ×2 (21:12→21:18)
[2021-11-10 21:17] LABS: BASOPHILS # (AUTO) 0.1 X10^3/uL (0.0-0.1); BASOPHILS % (AUTO) 0.8 % (0.2-1.0); EOSINOPHILS # (AUTO) 0.1 x10^3/uL (0.0-0.2); EOSINOPHILS % (AUTO) 1.8 % (0.9-2.9); HEMOGLOBIN 9.8 g/dL (13.5-18.0); LYMPHOCYTES # (AUTO) 0.8 X10^3/uL (1.3-2.9); MEAN CORPUSCULAR HEMOGLOBIN 29.8 pg (27.0-34.0); MEAN CORPUSCULAR HGB CONC 33.9 g/dL (33.0-35.0); MEAN CORPUSCULAR VOLUME 87.8 fL (80.0-100.0); MEAN PLATELET VOLUME 7.5 fL (7.4-11.0); MONOCYTES # (AUTO) 0.7 x10^3/uL (0.3-0.8); MONOCYTES % (AUTO) 9.2 % (0.0-13.0); NEUTROPHILS # (AUTO) 5.9 x10^3/uL (2.2-4.8); NEUTROPHILS % (AUTO) 77.2 % (42.0-75.0); RED CELL DISTRIBUTION WIDTH 19.3 % (11.6-16.5); WHITE BLOOD COUNT 7.6 X10^3/uL (3.6-10.0)
[2021-11-10 21:31] LABS: ALBUMIN 2.2 g/dL (3.4-5.0); CALCIUM 7.4 mg/dL (8.5-10.1); CARBON DIOXIDE 24.6 mmol/L (21-32); COR CA(FOR HYPOALB) 8.8 mg/dL (8.5-10.1); CREATININE 1.92 mg/dL (0.70-1.30); TOTAL PROTEIN 6.3 g/dL (6.4-8.2)
[2021-11-10] MEDS ORDERED: APRESOLINE INJ 20 MG VIAL IVP ONE ×2 (22:03→23:32)
[2021-11-10] MEDS ORDERED: APRESOLINE INJ 20 MG VIAL ONE ×2 (22:06→23:35)
[2021-11-11] MEDS ORDERED: NORMODYNE INJ 20 MG VIAL IVP ONE (00:25)
[2021-11-11] MEDS ORDERED: NORMODYNE INJ 20 MG VIAL ONE (00:26)
[2021-11-11] MEDS ORDERED: PROVENTIL NEB TX 0.083% 2.5MG/ 3ML IN PRN (00:44)
[2021-11-11] MEDS: NORMODYNE INJ 20 MG VIAL IV PRN ×3 (02:37→08:37)
[2021-11-11 03:36] LABS: BASOPHILS % (AUTO) 0.6 % (0.2-1.0); EOSINOPHILS % (AUTO) 0.4 % (0.9-2.9); HEMATOCRIT 29.1 % (42.0-54.0); HEMOGLOBIN 9.9 g/dL (13.5-18.0); LYMPHOCYTES # (AUTO) 0.6 X10^3/uL (1.3-2.9); LYMPHOCYTES % (AUTO) 8.4 % (21.0-51.0); MEAN CORPUSCULAR HEMOGLOBIN 29.5 pg (27.0-34.0); MEAN CORPUSCULAR HGB CONC 33.9 g/dL (33.0-35.0); MEAN CORPUSCULAR VOLUME 87.1 fL (80.0-100.0); MEAN PLATELET VOLUME 7.7 fL (7.4-11.0); MONOCYTES # (AUTO) 0.6 x10^3/uL (0.3-0.8); MONOCYTES % (AUTO) 8.1 % (0.0-13.0); NEUTROPHILS # (AUTO) 5.8 x10^3/uL (2.2-4.8); NEUTROPHILS % (AUTO) 82.5 % (42.0-75.0); RED BLOOD COUNT 3.34 X10^6/uL (4.7-6.0); RED CELL DISTRIBUTION WIDTH 19.2 % (11.6-16.5)
[2021-11-11 03:51] LABS: ALBUMIN 2.1 g/dL (3.4-5.0); CALCIUM 7.3 mg/dL (8.5-10.1); CARBON DIOXIDE 25.6 mmol/L (21-32); COR CA(FOR HYPOALB) 8.8 mg/dL (8.5-10.1); CREATININE 1.8 mg/dL (0.70-1.30); TOTAL PROTEIN 6.1 g/dL (6.4-8.2)
--- NOTE | 2021-11-11 06:22 | RAD ---
HISTORYCongestive heart failure, shortness of breath, pleural effusionSTUDYChest AP [id number]/18/2022FINDINGSPati ent is status post median sternotomy and CABG. Heart size is normal. Elizabeth are normal. Lungs are generally hyperinflated. There is a left pleural effusion unchanged when compared to the prior examination. It obscures the left lower lobe. Underlying left lower lobe infiltrate or atelectasis not excluded. Left upper lung field appears clear. Right lung is clear.IMPRESSIONNo change left pleural effusion. Underlying infiltrate or atelectasis may be present in the left lower lobeHyperinflationElectronically signed by: KHAI STEPHENSON (Nov 11, 2021 06:20:27)
[2021-11-11] MEDS: PULMICORT NEB TX 0.5 MG NEB SCH ×2 (08:22→21:00)
[2021-11-11] MEDS: PROVENTIL NEB TX 0.083% 2.5MG/ 3ML IN PRN ×2 (08:22→21:00)
[2021-11-11] MEDS: MAGNESIUM SULFATE 1 GRAM/100 mL PREMIX 1 G/100 ML BAG IV PRN ×2 (08:33→10:01)
[2021-11-11] MEDS: LASIX IVP SCH ×2 (08:33→17:08)
[2021-11-11] MEDS: CATAPRES TAB 0.2 MG PO SCH ×2 (08:33→21:15)
[2021-11-11] MEDS: PROCARDIA XL 24-hr PO SCH (08:34)
[2021-11-11] MEDS: COREG TAB 25 MG PO SCH ×2 (08:34→21:14)
[2021-11-11] MEDS: LOVENOX INJ 30 MG SYR SC SCH (08:46)
[2021-11-11] MEDS ORDERED: POTASSIUM CHL 40 MEQ/NS 0.45% 500 ML IV PRN (08:48)
[2021-11-11] MEDS ORDERED: MICRO K EXTEN CAP 10 MEQ PO PRN (08:48)
[2021-11-11] MEDS ORDERED: POTASSIUM CHL 60 MEQ/NS 0.45% 500 ML IV PRN (08:48)
[2021-11-11] MEDS ORDERED: K-RIDER 10 MEQ/NS 100 ML 10 MEQ/100 ML BAG IV PRN (08:48)
[2021-11-11] MEDS ORDERED: POTASSIUM CHLORIDE LIQ 20 MEQ UDC PO PRN (08:48)
[2021-11-11] MEDS ORDERED: K-DUR TAB 20 MEQ PO PRN (08:48)
[2021-11-11] MEDS ORDERED: KLOR-CON PO PRN (08:48)
[2021-11-11] MEDS ORDERED: [UNRECOGNIZED DRUG - OTHER] IN SCH (09:00)
[2021-11-12 05:06] LABS: EOSINOPHILS # (AUTO) 0.1 x10^3/uL (0.0-0.2); HEMATOCRIT 26.1 % (42.0-54.0); HEMOGLOBIN 8.9 g/dL (13.5-18.0); LYMPHOCYTES % (AUTO) 19.6 % (21.0-51.0); MEAN CORPUSCULAR HEMOGLOBIN 29.4 pg (27.0-34.0); MEAN CORPUSCULAR HGB CONC 34.1 g/dL (33.0-35.0); MEAN CORPUSCULAR VOLUME 86.3 fL (80.0-100.0); MEAN PLATELET VOLUME 7.8 fL (7.4-11.0); MONOCYTES # (AUTO) 0.4 x10^3/uL (0.3-0.8); MONOCYTES % (AUTO) 8.5 % (0.0-13.0); NEUTROPHILS # (AUTO) 3.3 x10^3/uL (2.2-4.8); NEUTROPHILS % (AUTO) 68.9 % (42.0-75.0); RED BLOOD COUNT 3.03 X10^6/uL (4.7-6.0); WHITE BLOOD COUNT 4.8 X10^3/uL (3.6-10.0)
[2021-11-12 05:19] LABS: ALBUMIN 1.8 g/dL (3.4-5.0); CALCIUM 7.2 mg/dL (8.5-10.1); CARBON DIOXIDE 29.6 mmol/L (21-32); CREATININE 1.93 mg/dL (0.70-1.30); TOTAL PROTEIN 5.4 g/dL (6.4-8.2)
[2021-11-12] MEDS: LASIX IVP SCH (06:19)
--- NOTE | 2021-11-12 07:52 | DR.H&P ---
H&P History & Physical for Day of: H&P Date: 11/11/21 Chief Complaint Chief Complaint: shortness of breath chest pain Allergies Allergies Allergy/AdvReac Type Severity Reaction Status Date / Time No Known Drug Allergies Allergy Verified 09/13/19 13:55 History of Present Illness History of Present Illness: Pt is a 76 year old male past medical history of Hypertension, CABG, COPD, CKD presenting with chest pain, shortness of breath that gradually became worse since his discharge. He does admit that he was not taking lasix twice a day as he was instructed to do and that his legs gradually started swelling. Labs/imaging: Wbc 7.0, Hgb 9.9, Plt 215, Na 134, K 3.1, Creatinine 1.80, Glucose 122, Troponin 114>111, BNP>5000, CXR was obtained that revealed:There is a left pleural effusion unchanged when compared to the prior examination. It obscures the left lower lobe. Underlying left lower lobe infiltrate or atelectasis not excluded. Pt was admitted for CHF exacerbation. Will order strict I/O, Fluid restriction, trend cardiac enzymes. Pt is on IV lasix 40mg BID. Will consult cardiology that will be here on Thursday for further evaluation. Aware of previous echo showing critical aortic stenosis. Hypokalemia on labs, replete per protocol. Pt is agreeable to plan of care. Will continue to closely monitor and follow up labs/imaging. Past Medical History Past Medical History: Anemia, CHF, COPD and Hypertension Past Surgical History Surgical History: Appendectomy and CABG/Valve Surgery Family History Family Medical History: Coronary Artery Disease Social History Does patient currently use any type of tobacco product: No Have you used tobacco products in the last 12 months: Yes Type of Tobacco Use: None Does any household member use tobacco: No Alcohol Use: None Drug Use: None Medications Home Medications: No Known Drug Allergies Allergy (Verified 09/13/19 13:55) Labs Result Diagrams: 11/12/21 04:21 11/12/21 04:21 Labs: Laboratory WBC 4.8 X10^3/uL (3.6-10.0) 11/12/21 04:21 RBC 3.03 X10^6/uL (4.7-6.0) L 11/12/21 04:21 Hgb 8.9 g/dL (13.5-18.0) L 11/12/21 04:21 Hct 26.1 % (42.0-54.0) L 11/12/21 04:21 MCV 86.3 fL (80.0-100.0) 11/12/21 04:21 MCH 29.4 pg (27.0-34.0) 11/12/21 04:21 MCHC 34.1 g/dL (33.0-35.0) 11/12/21 04:21 RDW 19.0 % (11.6-16.5) H 11/12/21 04:21 Plt Count 220 X10^3/uL (150.0-450.0) 11/12/21 04:21 MPV 7.8 fL (7.4-11.0) 11/12/21 04:21 Neut % (Auto) 68.9 % (42.0-75.0) 11/12/21 04:21 Lymph % (Auto) 19.6 % (21.0-51.0) L 11/12/21 04:21 [place] % (Auto) 8.5 % (0.0-13.0) 11/12/21 04:21 Eos % (Auto) 2.0 % (0.9-2.9) 11/12/21 04:21 Baso % (Auto) 1.0 % (0.2-1.0) 11/12/21 04:21 Neut # (Auto) 3.3 x10^3/uL (2.2-4.8) 11/12/21 04:21 Lymph # (Auto) 1.0 X10^3/uL (1.3-2.9) L 11/12/21 04:21 [place] # (Auto) 0.4 x10^3/uL (0.3-0.8) 11/12/21 04:21 Eos # (Auto) 0.1 x10^3/uL (0.0-0.2) 11/12/21 04:21 Baso # (Auto) 0.0 X10^3/uL (0.0-0.1) 11/12/21 04:21 Absolute Nucleated RBC 0.0 /100WBC 11/12/21 04:21 Sodium 135 mmol/L (136-145) L 11/12/21 04:21 Corrected Sodium 135 mmol/L (136-145) L 11/12/21 04:21 Potassium 3.3 mmol/L (3.5-5.1) L 11/12/21 04:21 Chloride 101 mmol/L (98-107) 11/12/21 04:21 Carbon Dioxide 29.6 mmol/L (21-32) 11/12/21 04:21 BUN 28 mg/dL (7-18) H 11/12/21 04:21 Creatinine 1.93 mg/dL (0.70-1.30) H 11/12/21 04:21 Est GFR (MDRD) Af Amer 44 (>60) L 11/12/21 04:21 Est GFR (MDRD) Non-Af 36 (>60) L 11/12/21 04:21 Glucose 116 mg/dL (65-99) H 11/12/21 04:21 POC Glucose (mg/dL) 112 mg/dL (65-99) H 11/12/21 06:09 Calcium 7.2 mg/dL (8.5-10.1) L 11/12/21 04:21 Corrected Calcium 9.0 mg/dL (8.5-10.1) 11/12/21 04:21 Magnesium 1.5 mg/dL (1.7-2.9) L 11/11/21 03:13 Total Bilirubin 0.30 mg/dL (0.2-1.0) 11/12/21 04:21 AST 10 Units/L (15-37) L 11/12/21 04:21 ALT 12 Units/L (12-78) 11/12/21 04:21 Alkaline Phosphatase 91 Units/L (46-116) 11/12/21 04:21 Creatine Kinase 37 Units/L (39-308) L 11/11/21 10:17 Troponin I High Sens 100.5 ng/L (4.0-60.0) H* 11/11/21 10:17 B-Natriuretic Peptide > 5000 pg/mL (0-79) H* 11/11/21 03:13 Total Protein 5.4 g/dL (6.4-8.2) L 11/12/21 04:21 Albumin 1.8 g/dL (3.4-5.0) L 11/12/21 04:21 Globulin 3.6 g/dL (2.5-4.5) 11/12/21 04:21 Albumin/Globulin Ratio 0.5 Ratio (1.1-2.1) L 11/12/21 04:21 SARS-CoV-2 (PCR) Negative (NEGATIVE) 11/10/21 22:45 Influenza Type A (PCR) Negative (NEGATIVE) 11/10/21 22:45 Influenza Type B (PCR) Negative (NEGATIVE) 11/10/21 22:45 RSV (PCR) Negative (NEGATIVE) 11/10/21 22:45 Review of Systems Constitutional: Weakness Eyes: No Symptoms Reported ENT: No Symptoms Reported Respiratory: Shortness of Breath Cardiovascular: Chest Pain and Edema Gastrointestinal: No Symptoms Reported Genitourinary: No Symptoms Reported Musculoskeletal: No Symptoms Reported Skin: No Symptoms Reported Neurological: No Symptoms Reported Physical Exam Vital Signs: Temperature 98.6 F Pulse Rate 56 Respiratory Rate 17 Blood Pressure [Right Arm] 152/67 Blood Pressure 147/66 O2 Sat by Pulse Oximetry 96 Oriented: Normal Eyes: Normal Ear: Normal Nose: Normal Throat: Normal Respiratory: Diminished Throughout Cardiovascular: Normal : Normal Auscultation: Bowel Sounds: Normal Palpation: Normal Tenderness: Normal Skin: Normal Musculoskeletal: Normal Psychiatric: Normal Mood Description: Calm and Appropriate Affect: Normal Speech Pattern: Clear and Appropriate Assessment/Plan (1) CHF exacerbation: Qualifiers: Heart failure type: unspecified Qualified Code(s): I50.9 - Heart failure, unspecified Status: Acute Plan: strict i/o, fluid restriction IV lasix 40mg BID (2) CKD (chronic kidney disease) stage 3, GFR 30-59 ml/min: Qualifiers: Chronic kidney disease stage 3 subtype: stage 3b (GFR 30-44) Qualified Code(s): N18.32 - Chronic kidney disease, stage 3b Status: Acute (3) Hypokalemia: Status: Acute Plan: Replete per protocol (4) Elevated troponin: Narrative Support Text: Trend cardiac enzymes Status: Acute (5) Aortic stenosis: Status: Acute Plan: consult cardiology Review H&P Reviewed: Yes Patient was examined?: Yes
--- NOTE | 2021-11-12 08:04 | PCM.PROG ---
Progress Note Progress Note for Day of Date of Exam: 11/12/21 Subjective Subjective: Pt is a 76 year old male past medical history of Hypertension, CABG, COPD, CKD admitted for CHF exacerbation, Hypokalemia. This morning pt reports feeling a little better. He no longer has swelling in his feet. Labs/imaging: Wbc 4.8, Hgb 8.9, Plt 220, Na 135, K 3.3, Creatinine 1.93, Glucose 116, Troponin 111>100, CXR yesterday revealed:There is a left pleural effusion unchanged when compared to the prior examination. It obscures the left lower lobe. Underlying left lower lobe infiltrate or atelectasis not excluded. Pt is currently on strict I/O, Fluid restriction. Pt is on IV lasix 40mg BID. Will order CT chest for further evaluation of large left pleural effusion. Change lasix to po 40mg BID. Consult cardiology that will be here on Thursday for further evaluation. Troponin trending down. Aware of previous echo showing critical aortic stenosis. Hypokalemia on labs, replete per protocol. Pt is agreeable to plan of care. Will continue to closely monitor and follow up labs/imaging. Past Medical Family Social History Allergies: Allergies No Known Drug Allergies Allergy (Verified 09/13/19 13:55) Review of Systems ROS changes noted: see HPI Vital Signs and I&O's Vital Signs: Temperature 98.6 F Pulse Rate 56 Respiratory Rate 17 Blood Pressure [Right Arm] 152/67 Blood Pressure 147/66 O2 Sat by Pulse Oximetry 96 Intake and Output: Intake & Output 11/09/21 11/10/21 11/11/21 11/12/21 23:59 23:59 23:59 23:59 Intake Total 443 / 443 317 / 317 Output Total 2625 / 2625 600 / 600 Balance -2182 / -2182 -283 / -283 Physical Exam Oriented: Normal Eyes: Normal Ear: Normal Nose: Normal Throat: Normal Respiratory: Diminished Cardiovascular: Normal : Normal Auscultation: Bowel Sounds: Normal Tenderness: Normal Skin: Normal Musculoskeletal: Normal Psychiatric: Normal Mood Description: Calm and Appropriate Affect: Normal Speech Pattern: Clear and Appropriate Laboratory and Diagnostics Result Diagrams: 11/12/21 04:21 11/12/21 04:21 Labs: Laboratory WBC 4.8 X10^3/uL (3.6-10.0) 11/12/21 04:21 RBC 3.03 X10^6/uL (4.7-6.0) L 11/12/21 04:21 Hgb 8.9 g/dL (13.5-18.0) L 11/12/21 04:21 Hct 26.1 % (42.0-54.0) L 11/12/21 04:21 MCV 86.3 fL (80.0-100.0) 11/12/21 04:21 MCH 29.4 pg (27.0-34.0) 11/12/21 04:21 MCHC 34.1 g/dL (33.0-35.0) 11/12/21 04:21 RDW 19.0 % (11.6-16.5) H 11/12/21 04:21 Plt Count 220 X10^3/uL (150.0-450.0) 11/12/21 04:21 MPV 7.8 fL (7.4-11.0) 11/12/21 04:21 Neut % (Auto) 68.9 % (42.0-75.0) 11/12/21 04:21 Lymph % (Auto) 19.6 % (21.0-51.0) L 11/12/21 04:21 [place] % (Auto) 8.5 % (0.0-13.0) 11/12/21 04:21 Eos % (Auto) 2.0 % (0.9-2.9) 11/12/21 04:21 Baso % (Auto) 1.0 % (0.2-1.0) 11/12/21 04:21 Neut # (Auto) 3.3 x10^3/uL (2.2-4.8) 11/12/21 04:21 Lymph # (Auto) 1.0 X10^3/uL (1.3-2.9) L 11/12/21 04:21 [place] # (Auto) 0.4 x10^3/uL (0.3-0.8) 11/12/21 04:21 Eos # (Auto) 0.1 x10^3/uL (0.0-0.2) 11/12/21 04:21 Baso # (Auto) 0.0 X10^3/uL (0.0-0.1) 11/12/21 04:21 Absolute Nucleated RBC 0.0 /100WBC 11/12/21 04:21 Sodium 135 mmol/L (136-145) L 11/12/21 04:21 Corrected Sodium 135 mmol/L (136-145) L 11/12/21 04:21 Potassium 3.3 mmol/L (3.5-5.1) L 11/12/21 04:21 Chloride 101 mmol/L (98-107) 11/12/21 04:21 Carbon Dioxide 29.6 mmol/L (21-32) 11/12/21 04:21 BUN 28 mg/dL (7-18) H 11/12/21 04:21 Creatinine 1.93 mg/dL (0.70-1.30) H 11/12/21 04:21 Est GFR (MDRD) Af Amer 44 (>60) L 11/12/21 04:21 Est GFR (MDRD) Non-Af 36 (>60) L 11/12/21 04:21 Glucose 116 mg/dL (65-99) H 11/12/21 04:21 POC Glucose (mg/dL) 112 mg/dL (65-99) H 11/12/21 06:09 Calcium 7.2 mg/dL (8.5-10.1) L 11/12/21 04:21 Corrected Calcium 9.0 mg/dL (8.5-10.1) 11/12/21 04:21 Magnesium 1.8 mg/dL (1.7-2.9) 11/12/21 04:21 Total Bilirubin 0.30 mg/dL (0.2-1.0) 11/12/21 04:21 AST 10 Units/L (15-37) L 11/12/21 04:21 ALT 12 Units/L (12-78) 11/12/21 04:21 Alkaline Phosphatase 91 Units/L (46-116) 11/12/21 04:21 Creatine Kinase 37 Units/L (39-308) L 11/11/21 10:17 Troponin I High Sens 100.5 ng/L (4.0-60.0) H* 11/11/21 10:17 B-Natriuretic Peptide > 5000 pg/mL (0-79) H* 11/11/21 03:13 Total Protein 5.4 g/dL (6.4-8.2) L 11/12/21 04:21 Albumin 1.8 g/dL (3.4-5.0) L 11/12/21 04:21 Globulin 3.6 g/dL (2.5-4.5) 11/12/21 04:21 Albumin/Globulin Ratio 0.5 Ratio (1.1-2.1) L 11/12/21 04:21 SARS-CoV-2 (PCR) Negative (NEGATIVE) 11/10/21 22:45 Influenza Type A (PCR) Negative (NEGATIVE) 11/10/21 22:45 Influenza Type B (PCR) Negative (NEGATIVE) 11/10/21 22:45 RSV (PCR) Negative (NEGATIVE) 11/10/21 22:45 Plan (1) CHF exacerbation: Status: Acute Qualifiers: Heart failure type: unspecified Qualified Code(s): I50.9 - Heart failure, unspecified Plan: strict i/o, fluid restriction PO lasix 40mg BID (2) CKD (chronic kidney disease) stage 3, GFR 30-59 ml/min: Status: Acute Qualifiers: Chronic kidney disease stage 3 subtype: stage 3b (GFR 30-44) Qualified Code(s): N18.32 - Chronic kidney disease, stage 3b (3) Hypokalemia: Status: Acute Plan: Replete per protocol (4) Elevated troponin: Status: Acute (5) Aortic stenosis: Status: Acute Plan: consult cardiology
[2021-11-12] MEDS: PROVENTIL NEB TX 0.083% 2.5MG/ 3ML IN PRN ×2 (08:20→20:32)
[2021-11-12] MEDS: PULMICORT NEB TX 0.5 MG NEB SCH ×2 (08:20→20:32)
[2021-11-12] MEDS: PROCARDIA XL 24-hr PO SCH (08:50)
[2021-11-12] MEDS: COREG TAB 25 MG PO SCH ×2 (08:50→20:37)
[2021-11-12] MEDS: CATAPRES TAB 0.2 MG PO SCH ×2 (08:50→20:37)
[2021-11-12] MEDS: LASIX PO SCH ×2 (08:50→18:11)
[2021-11-12] MEDS: LOVENOX INJ 30 MG SYR SC SCH (08:51)
[2021-11-12] MEDS: K-DUR TAB 20 MEQ PO SCH (09:09)
--- NOTE | 2021-11-12 10:55 | CT ---
HISTORYPLEURAL EFFUSIONSTUDYCHEST W/O [id number]/07/2022TECHNIQUEAxial images through the chest were performed without intravenous contrast. CT scan was performed following ALARA (As low as Reasonably Achievable).Coronal and Sagittal reformatted images were performed.FINDINGSThe thyroid gland is small. There is no axillary adenopathy. The ascending aorta measures approximately 3.5 centimeters, there is heavy coronary artery calcifications. There is a small pretracheal lymph node measuring in short axis 1 centimeter, there is no evidence of pericardial effusion. There is a small right pleural effusion slightly increased since prior study. There is no evidence of adrenal masses the spleen is no enlarged. 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 There is again seen a focal scar in the right apex with a nodular radiopacity unchanged since prior study with a more linear trajectory in the coronal imagesThere is a focal small left pleural effusion that appears to be loculated with thickening of the pleural letters, overall unchanged in size since prior study, there is an adjacent radiopacity with some interval improvement of patchy radiopacities in the left lower lobe superior segment. There has been interval improvement of focal infiltrate in the inferior aspect of the right upper lobeThere is still mild tenting of the fissure at the level.There is small new subpleural radiopacity in the right upper lobe measuring 5 millimeters on image 18.Bone windows there is no evidence of aggressive bone lesions. No acute fractures seen. There is a compression fracture of T12 present on prior study likely oldIMPRESSIONOverall stable in size loculated left pleural effusion with thickening of the pleural membranes with an adjacent radiopacity, that appears less nodular since prior study, it could represent a parapneumonic effusion. Empyema is not excluded, clinical correlation recommended. Less likely a tumor; however no totally excludedInterval improvement of right lower lobe inferior pneumonic infiltrate with some residual alveolar radiopacities.Multiple blebs in the apices with focal scar in the right upper lobe.Electronically signed by: Martina Faustin (Nov 12, 2021 10:52:47)
[2021-11-12] MEDS: MAGNESIUM SULFATE 1 GRAM/100 mL PREMIX 1 G/100 ML BAG IV PRN (20:37)
[2021-11-13 05:42] LABS: BASOPHILS % (AUTO) 0.9 % (0.2-1.0); EOSINOPHILS # (AUTO) 0.1 x10^3/uL (0.0-0.2); EOSINOPHILS % (AUTO) 1.7 % (0.9-2.9); HEMATOCRIT 25.1 % (42.0-54.0); HEMOGLOBIN 8.6 g/dL (13.5-18.0); LYMPHOCYTES % (AUTO) 19.8 % (21.0-51.0); MEAN CORPUSCULAR HEMOGLOBIN 29.5 pg (27.0-34.0); MEAN CORPUSCULAR HGB CONC 34.1 g/dL (33.0-35.0); MEAN CORPUSCULAR VOLUME 86.5 fL (80.0-100.0); MEAN PLATELET VOLUME 7.9 fL (7.4-11.0); MONOCYTES # (AUTO) 0.5 x10^3/uL (0.3-0.8); MONOCYTES % (AUTO) 9.7 % (0.0-13.0); NEUTROPHILS # (AUTO) 3.6 x10^3/uL (2.2-4.8); NEUTROPHILS % (AUTO) 67.9 % (42.0-75.0); RED BLOOD COUNT 2.91 X10^6/uL (4.7-6.0); RED CELL DISTRIBUTION WIDTH 19.3 % (11.6-16.5); WHITE BLOOD COUNT 5.3 X10^3/uL (3.6-10.0)
[2021-11-13 06:04] LABS: ALANINE AMINOTRANSFERASE 11 Units/L (12-78); ALBUMIN 1.8 g/dL (3.4-5.0); ALKALINE PHOSPHATASE 95 Units/L (46-116); ASPARTATE AMINO TRANSFERASE 12 Units/L (15-37); BLOOD UREA NITROGEN 25 mg/dL (7-18); CALCIUM 7.1 mg/dL (8.5-10.1); CARBON DIOXIDE 30.7 mmol/L (21-32); CHLORIDE 101 mmol/L (98-107); COR CA(FOR HYPOALB) 8.9 mg/dL (8.5-10.1); CREATININE 1.88 mg/dL (0.70-1.30); SODIUM 135 mmol/L (136-145); TOTAL PROTEIN 5.5 g/dL (6.4-8.2); eGFR NON BLACK RACES 37 (>60)
[2021-11-13] MEDS: MAGNESIUM SULFATE 1 GRAM/100 mL PREMIX 1 G/100 ML BAG IV PRN ×2 (06:04→07:30)
[2021-11-13] MEDS: PROVENTIL NEB TX 0.083% 2.5MG/ 3ML IN PRN (08:20)
[2021-11-13] MEDS: PULMICORT NEB TX 0.5 MG NEB SCH (08:20)
[2021-11-13] MEDS: CATAPRES TAB 0.2 MG PO SCH (08:24)
[2021-11-13] MEDS: COREG TAB 25 MG PO SCH ×2 (08:25→08:26)
[2021-11-13] MEDS: K-DUR TAB 20 MEQ PO SCH (08:26)
[2021-11-13] MEDS: LOVENOX INJ 30 MG SYR SC SCH (08:27)
[2021-11-13] MEDS: PROCARDIA XL 24-hr PO SCH (08:27)
[2021-11-13] MEDS: LASIX PO SCH (08:27)
[2021-11-13 15:09] VITALS: BP 136/63
== END 2021-11-13 15:18 | disposition short-term general hospital (02) ==
LOC: ER 20:06 → ICU 20:06
PROVIDERS: ADMIT Internal Medicine; ATTEND Family Medicine
DX: R77.8 Other specified abnormalities of plasma proteins; D63.1 Anemia in chronic kidney disease; I35.0 Nonrheumatic aortic (valve) stenosis; E87.6 Hypokalemia; N18.32 Chronic kidney disease, stage 3b; I25.10 Atherosclerotic heart disease of native coronary artery without angina pectoris; I13.0 Hypertensive heart and chronic kidney disease with heart failure and stage 1 through stage 4 chronic kidney disease, or unspecified chronic kidney disease; R07.89 Other chest pain; Z20.822 Contact with and (suspected) exposure to COVID-19; J90 Pleural effusion, not elsewhere classified; J44.9 Chronic obstructive pulmonary disease, unspecified; R06.02 Shortness of breath; R94.31 Abnormal electrocardiogram [ECG] [EKG]; E87.1 Hypo-osmolality and hyponatremia; I50.9 Heart failure, unspecified